=== PATIENT | female | born 1945 | race Caucasian/White ===

== ENCOUNTER 2022-05-08 22:39 | Inpatient (IN) ==
--- NOTE | 2022-05-08 23:25 | Emergency Department Note ---
History of Present Illness General Chief complaint: Hip Pain Stated complaint: AAO/FALL W/ LEFT HIP INJURY Time Seen by Provider: 05/08/22 23:13 History of Present Illness Maximum Pain Intensity: 6 77-year-old female presents emergency department with a nonsyncopal trip and fall while she was at a baseball game. Patient landed on her left hip complains of left hip pain was not ambulatory after the event. Patient did not hit her head denies any headache denies neck pain numbness or tingling denies chest pain shortness of breath abdominal pain. Patient states that she does take Brilinta. Patient states that there was a fall ball coming towards her and she tried to avoid it and stepped to the left side falling onto her left hip. Home Medications Medication Instructions Recorded Confirmed Type amlodipine 10 mg tablet 10 mg PO QAM 05/08/22 05/08/22 History aspirin 81 mg tablet,delayed 81 mg PO QAM 05/08/22 05/08/22 History release atorvastatin 20 mg tablet 20 mg PO HS 05/08/22 05/08/22 History carvedilol 6.25 mg tablet 6.25 mg PO BID 05/08/22 05/08/22 History cholecalciferol (vitamin D3) 25 25 mcg PO QAM 05/08/22 05/08/22 History mcg (1,000 unit) tablet (Vitamin D3) docusate sodium 100 mg capsule 100 mg PO BID PRN 05/08/22 05/08/22 History (Colace) insulin glargine U-300 conc 300 20 unit SUBCUT 05/08/22 05/08/22 History unit/mL (3 mL) subcutaneous pen (Toujeo Max U-300 SoloStar) insulin lispro 100 unit/mL 4 unit SUBCUT 05/08/22 05/08/22 History subcutaneous pen (Humalog KwikPen (U-100) Insulin) irbesartan 300 mg tablet 300 mg PO QAM 05/08/22 05/08/22 History isosorbide mononitrate 60 mg 60 mg PO QAM 05/08/22 05/08/22 History tablet,extended release 24 hr nitroglycerin 0.4 mg sublingual 0.4 mg SUBLINGUAL .Q 5 MINUTES PRN 05/08/22 05/08/22 History tablet oxybutynin chloride 5 mg tablet 5 mg PO BID 05/08/22 05/08/22 History sertraline 50 mg tablet 50 mg PO QAM 05/08/22 05/08/22 History ticagrelor 90 mg tablet (Brilinta) 90 mg PO BID 05/08/22 05/08/22 History Allergies Allergy/AdvReac Type Severity Reaction Status Date / Time pollen extracts Allergy Mild Sneezing Verified 05/08/22 23:22 Past Med/Surg History Social History Smoking Status: Never smoker Feels Safe at Home: Yes Immunizations: Past medical history includes diabetes, cardiac disease, hypertension, prior knee surgery Review of Systems A total of 10 systems reviewed and were otherwise negative Constitutional: no fever Cardiovascular: no chest pain Musculoskeletal: + joint pain, + deformity and + limited range of motion; no back pain Neurologic: no paresthesia Physical Exam Vital Signs Vital Signs - 24 hr 05/08/22 22:43 Temperature 36.6 C Temperature Source Oral Pulse Rate 68 Respiratory Rate 18 Respiratory Effort / Characteristics Non-Labored Respiratory Depth Normal Blood Pressure 146/81 H Blood Pressure Mean 102 Pulse Oximetry 97 Oxygen Delivery Method Room Air Sepsis Recent Fever Within 48 Hours No Sepsis New/Unexplained Change in Mental Status No Sepsis Action Taken by Nursing No Action Required VITAL SIGNS - Vital signs and nursing notes were reviewed. GENERAL - no acute distress. Communicates well with provider and answers questions appropriately. SKIN - Without rashes. HEAD - NC/AT. EYES - PERRL with EOMI bilaterally. Sclera anicteric. Palpebral conjunctiva pink and moist with no injection noted. EARS - No deformities of external structures noted on gross examination bilaterally. NOSE - Midline and without cyanosis. No epistaxis or purulent drainage noted. Septum midline without deviation or septal hematoma noted. MOUTH/OROPHARYNX - Without perioral cyanosis. NECK - Neck with FROM. Supple to palpation. LUNGS - Chest wall symmetric without accessory muscle use, intercostals retractions, or central cyanosis. Normal vesicular breath sounds CTA B/L. No wheezes, rales, or rhonchi appreciated. CARDIAC - RRR with S1/S2. No murmur, rubs, or gallops appreciated. ABDOMEN - Abdominal contour soft without pulsations or visible masses. No tenderness, palpable masses, hepatosplenomegaly, or ascites noted. EXTREMITIES - No clubbing or peripheral cyanosis. No pretibial edema present. Decreased range of motion left lower extremity the left lower extremity is shortened and rotated externally. Patient is neurovascularly intact distally the remainder of the extremities are normal without trauma. NEUROLOGIC - Cranial nerves II through XII grossly intact. GCS of 15 nonfocal PSYCH - A&Ox3 and cooperates fully with examiner. Pt is very pleasant and interacts well with examiner. Course Reevaluation(s) Reevaluation #1: Patient resting in no distress was started on IV fentanyl. The case was discussed with the [facility] hospitalist for admission Time: 00:26 Administered Medications Discontinued Medications Fentanyl Citrate (Fentanyl Citrate 100 Mcg/2 Ml Vial) 50 mcg IV NOW STA Stop: 05/08/22 23:36 Last Admin: 05/08/22 23:46 Dose: 50 mcg Documented by: [id number] Medical Decision Making Medical Records Attestation: I reviewed the patient's medical records. Home Medications Current Medication List: was personally reviewed by me Laboratory Data Attestation: I reviewed the patient's lab results. Result diagrams: 05/08/22 23:27 05/08/22 23:27 Lab Results 05/08/22 05/08/22 05/08/22 Range/Units 23:23 23:27 23:27 WBC 9.95 (4.8-10.8) K/ul RBC 3.86 L (3.93-5.22) M/uL Hgb 11.6 L (12.0-16.0) g/dl Hct 35.0 (34.1-44.9) % MCV 90.7 (80.0-100.0) fL MCH 30.1 (25.0-34.0) pg MCHC 33.1 (32.0-36.0) g/dL RDW Std Deviation 43.9 (36.4-46.3) fL RDW Coeff of [place] 13.2 (11.5-14.5) % Plt Count 186 (130-400) K/uL MPV 10.8 (9.4-12.3) fL Immature Gran % (Auto) 0.4 % Neut % (Auto) 67.5 % Lymph % (Auto) 21.0 % [place] % (Auto) 7.4 % Eos % (Auto) 3.1 % Baso % (Auto) 0.6 % Neut # (Auto) 6.71 H (1.4-6.5) K/uL Lymph # (Auto) 2.09 (1.2-3.4) K/uL [place] # (Auto) 0.74 (0.24-0.82) K/uL Eos # (Auto) 0.31 (0-0.50) K/uL Baso # (Auto) 0.06 (0-0.2) K/uL Immature Gran # (Auto) 0.04 H (0.00-0.02) K/uL PT 10.9 (9.0-12.0) Seconds INR 1.0 (0.9-1.1) APTT 24.5 (21.0-31.0) Seconds PTT Ratio 0.9 Sodium (136-145) mmol/L Potassium (3.5-5.1) mmol/L Chloride (98-107) mmol/L Carbon Dioxide (21-32) mmol/L Anion Gap (3-11) BUN (6-23) mg/dl Creatinine (0.6-1.2) mg/dl Est Cr Clr Drug Dosing ml/min Est GFR ( Amer) ml/min Est GFR (Non-Af Amer) ml/min BUN/Creatinine Ratio (10-20) Glucose (70-99(Fasting)) mg/dl Calcium (8.5-10.1) mg/dl Total Bilirubin (0.2-1.0) mg/dl AST (13-39) U/L ALT (7-52) U/L Alkaline Phosphatase (34-104) U/L Total Protein (6.0-8.3) gm/dl Albumin (3.4-5.0) gm/dl Globulin (2.5-4.0) gm/dl Albumin/Globulin Ratio (0.9-2) SARS-CoV-2, RNA, NAAT NEGATIVE (NEGATIVE) 05/08/22 Range/Units 23:27 WBC (4.8-10.8) K/ul RBC (3.93-5.22) M/uL Hgb (12.0-16.0) g/dl Hct (34.1-44.9) % MCV (80.0-100.0) fL MCH (25.0-34.0) pg MCHC (32.0-36.0) g/dL RDW Std Deviation (36.4-46.3) fL RDW Coeff of [place] (11.5-14.5) % Plt Count (130-400) K/uL MPV (9.4-12.3) fL Immature Gran % (Auto) % Neut % (Auto) % Lymph % (Auto) % [place] % (Auto) % Eos % (Auto) % Baso % (Auto) % Neut # (Auto) (1.4-6.5) K/uL Lymph # (Auto) (1.2-3.4) K/uL [place] # (Auto) (0.24-0.82) K/uL Eos # (Auto) (0-0.50) K/uL Baso # (Auto) (0-0.2) K/uL Immature Gran # (Auto) (0.00-0.02) K/uL PT (9.0-12.0) Seconds INR (0.9-1.1) APTT (21.0-31.0) Seconds PTT Ratio Sodium 136 (136-145) mmol/L Potassium 4.1 (3.5-5.1) mmol/L Chloride 106 (98-107) mmol/L Carbon Dioxide 23 (21-32) mmol/L Anion Gap 7 (3-11) BUN 28 H (6-23) mg/dl Creatinine 1.24 H (0.6-1.2) mg/dl Est Cr Clr Drug Dosing 37.2 ml/min Est GFR ( Amer) 48.5 ml/min Est GFR (Non-Af Amer) 41.9 ml/min BUN/Creatinine Ratio 22.6 H (10-20) Glucose 157 H (70-99(Fasting)) mg/dl Calcium 9.2 (8.5-10.1) mg/dl Total Bilirubin 0.4 (0.2-1.0) mg/dl AST 24 (13-39) U/L ALT 14 (7-52) U/L Alkaline Phosphatase 102 (34-104) U/L Total Protein 6.8 (6.0-8.3) gm/dl Albumin 3.8 (3.4-5.0) gm/dl Globulin 3.0 (2.5-4.0) gm/dl Albumin/Globulin Ratio 1.3 (0.9-2) SARS-CoV-2, RNA, NAAT (NEGATIVE) Imaging Data Attestation: I personally reviewed and interpreted this imaging study as follows: MDM Narrative Medical decision making differential diagnosis includes sprain strain contusion fracture, dislocation. Plan is to check labs, check left hip x-rays, admit Impression & Plan Intertrochanteric fracture of left femur Discharge Plan Visit Data Chief Complaint: Hip Pain Stated Complaint: AAO/FALL W/ LEFT HIP INJURY ED Provider: John Wells Discharge Problem: Intertrochanteric fracture of left femur Patient Disposition: Being Evaluated by Hospitalist Forms Stand Alone Forms: My [facility] Prescriptions Prescriptions: No Action isosorbide mononitrate 60 mg tablet extended release 24 hr 60 mg PO QAM RF: 0 oxybutynin chloride 5 mg tablet 5 mg PO BID RF: 0 Toujeo Max U-300 SoloStar 300 unit/mL (3 mL) insulin pen 20 unit SUBCUT HS RF: 0 insulin lispro [Humalog KwikPen Insulin] 100 unit/mL insulin pen 4 unit SUBCUT WM RF: 0 carvedilol 6.25 mg tablet 6.25 mg PO BID RF: 0 amlodipine 10 mg tablet 10 mg PO QAM RF: 0 irbesartan 300 mg tablet 300 mg PO QAM RF: 0 nitroglycerin 0.4 mg tablet, sublingual 0.4 mg sublingual .Q 5 MINUTES PRN (Reason: Chest Pain) RF: 0 sertraline 50 mg tablet 50 mg PO QAM RF: 0 Brilinta 90 mg tablet 90 mg PO BID RF: 0 atorvastatin 20 mg Tablet 20 mg PO HS RF: 0 aspirin [Aspirin Low-Strength] 81 mg Tablet,Delayed Release (Dr/Ec) 81 mg PO QAM RF: 0 docusate sodium [Colace] 100 mg Capsule 100 mg PO BID PRN (Reason: Constipation) RF: 0 cholecalciferol (vitamin D3) [Vitamin D3] 25 mcg (1,000 unit) Tablet 25 mcg PO QAM RF: 0 Referrals Referrals: PCP,NO [Primary Care Provider] -
[2022-05-08] MEDS ORDERED: fentaNYL citrate 100 MCG/2 ML VIAL IV STA (23:35)
[2022-05-08 23:41] LABS: Basophils # (auto) 0.06 K/uL (0-0.2); Basophils % (auto) 0.6 %; Eosinophils # (auto) 0.31 K/uL (0-0.50); Eosinophils % (auto) 3.1 %; Hemoglobin 11.6 g/dl (12.0-16.0); Immature Granulocytes # (auto) 0.04 K/uL (0.00-0.02); Immature Granulocytes % (auto) 0.4 %; Lymphocytes # (auto) 2.09 K/uL (1.2-3.4); Mean Corpuscular Hemoglobin 30.1 pg (25.0-34.0); Mean Corpuscular Hgb Conc 33.1 g/dL (32.0-36.0); Mean Corpuscular Volume 90.7 fL (80.0-100.0); Mean Platelet Volume 10.8 fL (9.4-12.3); Monocytes # (auto) 0.74 K/uL (0.24-0.82); Monocytes % (auto) 7.4 %; Neutrophils # (auto) 6.71 K/uL (1.4-6.5); Neutrophils % (auto) 67.5 %; Platelet Count 186 K/uL (130-400); RDW Coefficient of Variation 13.2 % (11.5-14.5); RDW Standard Deviation 43.9 fL (36.4-46.3); Red Blood Count 3.86 M/uL (3.93-5.22); White Blood Count 9.95 K/ul (4.8-10.8)
[2022-05-08 23:59] LABS: Partial Thromboplastin Ratio 0.9; Partial Thromboplastin Time 24.5 Seconds (21.0-31.0); Prothrombin Time 10.9 Seconds (9.0-12.0)
[2022-05-09 00:05] LABS: Albumin Globulin Ratio 1.3 (0.9-2); Albumin Level 3.8 gm/dl (3.4-5.0); BUN Creatinine Ratio 22.6 (10-20); Bilirubin,Total 0.4 mg/dl (0.2-1.0); Calcium 9.2 mg/dl (8.5-10.1); Creatinine Clr Calc Pharmacy 37.2 ml/min; Est GFR (African American) 48.5 ml/min; Est GFR (Non-African American) 41.9 ml/min; Potassium 4.1 mmol/L (3.5-5.1); Total Protein 6.8 gm/dl (6.0-8.3)
[2022-05-09] MEDS ORDERED: SODIUM CHLORIDE 0.9% 1000ML 1,000 ML IV ONE (00:27)
[2022-05-09 00:34] LABS: Appearance Urine Clear (Clear); Bilirubin Urine Negative (Negative); Blood Urine Negative (Negative); Color Urine Yellow; Glucose Urine UA Negative (Negative); Ketones Urine Negative (Negative); Leukocyte Esterase Urine Negative (Negative); Nitrite Urine Negative (Negative); Protein Urine Negative (Negative); Specific Gravity Urine 1.015 (1.000-1.030); Urobilinogen Urine Negative (Negative); pH Urine 7.5 (4.5-7.5)
[2022-05-09] MEDS ORDERED: PROMETHAZINE HCL 12.5 MG in SODIUM CHLORIDE 0.9% 50 ML IV PRN (02:18)
[2022-05-09] MEDS: ACETAMINOPHEN 325 MG TAB PO PRN (02:42)
--- NOTE | 2022-05-09 02:42 | History & Physical Report ---
Date of Service May 09, 2022 Assessment & Plan (1) Hypotension: Plan: Traumatic left hip fracture secondary to mechanical fall hx CAD status post CABG (1998) status post stent (2009)/ PVD status post surgery hyperlipidemia on statin Rx, hx TIA (2019) currently on aspirin and Brilinta DM2 insulin requiring, reasonable control as of recent hemoglobin A1c of 7.06 January 2022 ARF unknown duration Anemia, new diagnosis as per patient account, patient admits to hemorrhoidal bleed symptoms from time to time Systolic murmur on exam Past tobacco abuse Medical telemetry given borderline BP IVF Hold other BP meds except for Coreg for now Orthopedics consult Re: Left hip fracture Recommend Cardiology consultation for preop eval given RCRI score of at least 3 points (Class IV risk) if surgery recommended and patient agreeable to attendant risks of procedure TTE RE systolic murmur Anemia work-up, transfuse PRBC if hemoglobin less than 8 and or for symptomatic anemia continue aspirin for secondary CAD/stroke prevention; hold Brilinta for now in anticipation of procedure, Basal insulin adjusted for n.p.o. status, ISS BG goal 1 10-1 40, update hemoglobin A1c DVT prophylaxis. SCDs Re: Possible surgery Full code Patient daughter requesting update providers. Ms. Ihsan Vasquez, contact #[phone]. Text document was generated using [employer] voice recognition software. It may contain grammatical or spelling errors. Kindly contact undersigned for clarification of any documentation item in question. History of Present Illness Chief Complaint: Fall, left hip pain Primary Care Provider: Dr. Don Alaniz of [place], [place] History obtained from patient, family, and records. Medical history significant for CAD status post CABG (1998) status post stent (2009), PVD status post surgery, hypertension, hyperlipidemia, history TIA currently on aspirin and Brilinta, DM2 insulin requiring, past tobacco abuse. Patient fell down yesterday trying to avoid a baseball coming her way at a community again. Patient subsequently landed on her left hip. Excruciating left hip pain. Unable to get up. No head trauma, no syncope, no chest pain, no unusual SOB. Patient brought to the ER for evaluation. SBP 90s at some point during ER stay. Medical History as above Exertional shortness of breath symptoms for about 6 months which prompted outpatient nuclear stress test by her [employer] [employer] student life vice president (Dr. Falcon) April 2022. Medical management recommended as per patient. [employer] attributed shortness of breath to Brilinta and recommended replacing Brilinta with NOAC as per patient account. Patient hesitant to follow recommendation until she was able to check with her neurologist who had her on dual antiplatelet Rx following TIA 2019. Surgical History : CABG, knee surgeries, hysterectomy, cholecystectomy, vascular procedure Family History : Heart disease Personal/Social history : Past tobacco abuse, no EtOH intake, retired [email or web address] employee Allergies Allergy/AdvReac Type Severity Reaction Status Date / Time pollen extracts Allergy Mild Sneezing Verified 05/08/22 23:22 Home Medications Medication Instructions Recorded Confirmed Type amlodipine 10 mg tablet 10 mg PO QAM 05/08/22 05/08/22 History aspirin 81 mg tablet,delayed 81 mg PO QAM 05/08/22 05/08/22 History release atorvastatin 20 mg tablet 20 mg PO HS 05/08/22 05/08/22 History carvedilol 6.25 mg tablet 6.25 mg PO BID 05/08/22 05/08/22 History cholecalciferol (vitamin D3) 25 25 mcg PO QAM 05/08/22 05/08/22 History mcg (1,000 unit) tablet (Vitamin D3) docusate sodium 100 mg capsule 100 mg PO BID PRN 05/08/22 05/08/22 History (Colace) insulin glargine U-300 conc 300 20 unit SUBCUT 05/08/22 05/08/22 History unit/mL (3 mL) subcutaneous pen (Toujeo Max U-300 SoloStar) insulin lispro 100 unit/mL 4 unit SUBCUT 05/08/22 05/08/22 History subcutaneous pen (Humalog KwikPen (U-100) Insulin) irbesartan 300 mg tablet 300 mg PO QAM 05/08/22 05/08/22 History isosorbide mononitrate 60 mg 60 mg PO QAM 05/08/22 05/08/22 History tablet,extended release 24 hr nitroglycerin 0.4 mg sublingual 0.4 mg SUBLINGUAL .Q 5 MINUTES PRN 05/08/22 05/08/22 History tablet oxybutynin chloride 5 mg tablet 5 mg PO BID 05/08/22 05/08/22 History sertraline 50 mg tablet 50 mg PO QAM 05/08/22 05/08/22 History ticagrelor 90 mg tablet (Brilinta) 90 mg PO BID 05/08/22 05/08/22 History Past Med/Surg History Social History Smoking Status: Former smoker Hx Alcohol Use: Yes Alcohol type: wine Hx Substance Use: No Communication Ability: Effective Beliefs That Will Affect Care: None Current Living Situation: Spouse Feels Safe at Home: Yes Safety Concerns: Feels Safe At This Time Assistive Devices: Glasses Review of Systems Review of Systems: As per HPI, all other systems reviewed and negative Physical Exam Physical Exam: GENERAL: Comfortable, pleasant, obese, no respiratory distress SKIN: Pallor, warm HEENT: Pale palpebral conjunctivae, no ptosis, dry buccal mucosa NECK : Supple, short neck, no tenderness CHEST : CTA, no tenderness HEART : RRR, systolic murmur best heard over left sternal border ABDOMEN: Some distention, nontender EXTREMITIES : Minimal LE swelling, rotated left hip with tenderness NEUROLOGIC : Coherent, no facial asymmetry, no other gross focality Results & Data Results & Data ([facility]) Vital Signs (Past 12 Hours) Vital Signs Temp Pulse Resp BP Pulse Ox 05/09/22 02:00 60 17 97/55 L 95 05/09/22 01:00 69 21 139/64 93 05/09/22 00:28 63 17 118/53 L 97 05/08/22 22:43 36.6 C 68 18 146/81 H 97 Laboratory Results Laboratory Results WBC 9.95 K/ul (4.8-10.8) 05/08/22 23:27 RBC 3.86 M/uL (3.93-5.22) L 05/08/22 23:27 Hgb 11.6 g/dl (12.0-16.0) L 05/08/22 23:27 Hct 35.0 % (34.1-44.9) 05/08/22 23:27 MCV 90.7 fL (80.0-100.0) 05/08/22 23:27 MCH 30.1 pg (25.0-34.0) 05/08/22 23:27 MCHC 33.1 g/dL (32.0-36.0) 05/08/22 23:27 RDW Std Deviation 43.9 fL (36.4-46.3) 05/08/22 23: RDW Coeff of [place] 13.2 % (11.5-14.5) 05/08/22: Plt Count 186 K/uL (130-400) 05/08/22: MPV 10.8 fL (9.4-12.3) 05/08/22 23: Immature Gran % (Auto) 0.4 % 05/08/22: Neut % (Auto) 67.5 % 05/08/22: Lymph % (Auto) 21.0 % 05/08/22 23: [place] % (Auto) 7.4 % 05/08/22: Eos % (Auto) 3.1 % 05/08/22: Baso % (Auto) 0.6 % 05/08/22: Neut # (Auto) 6.71 K/uL (1.4-6.5) H 05/08/22 23: Lymph # (Auto) 2.09 K/uL (1.2-3.4) 05/08/22 23: [place] # (Auto) 0.74 K/uL (0.24-0.82) 05/08/22 23: Eos # (Auto) 0.31 K/uL (0-0.50) 05/08/22 23: Baso # (Auto) 0.06 K/uL (0-0.2) 05/08/22 23: Immature Gran # (Auto) 0.04 K/uL (0.00-0.02) H 05/08/22 23: PT 10.9 Seconds (9.0-12.0) 05/08/22 23: INR 1.0 (0.9-1.1) 05/08/22: APTT 24.5 Seconds (21.0-31.0) 05/08/22: PTT Ratio 0.9 05/08/22 23: Sodium 136 mmol/L (136-145) 05/08/22 23: Potassium 4.1 mmol/L (3.5-5.1) 05/08/22: Chloride 106 mmol/L (98-107) 05/08/22 23: Carbon Dioxide 23 mmol/L (21-32) 05/08/22 23:27 Anion Gap 7 (3-11) 05/08/22 23:27 BUN 28 mg/dl (6-23) H 05/08/22 23:27 Creatinine 1.24 mg/dl (0.6-1.2) H 05/08/22 23:27 Est Cr Clr Drug Dosing 37.2 ml/min 05/08/22 23:27 Est GFR ( Amer) 48.5 ml/min 05/08/22 23:27 Est GFR (Non-Af Amer) 41.9 ml/min 05/08/22 23:27 BUN/Creatinine Ratio 22.6 (10-20) H 05/08/22 23:27 Glucose 157 mg/dl (70-99(Fasting)) H 05/08/22 23: Calcium 9.2 mg/dl (8.5-10.1) 05/08/22 23: Total Bilirubin 0.4 mg/dl (0.2-1.0) 05/08/22 23:27 AST 24 U/L (13-39) 05/08/22 23:27 ALT 14 U/L (7-52) 05/08/22 23:27 Alkaline Phosphatase 102 U/L (34-104) 05/08/22 23:27 Total Protein 6.8 gm/dl (6.0-8.3) 05/08/22 23:27 Albumin 3.8 gm/dl (3.4-5.0) 05/08/22 23:27 Globulin 3.0 gm/dl (2.5-4.0) 05/08/22 23:27 Albumin/Globulin Ratio 1.3 (0.9-2) 05/08/22 23:27 Urine Color Yellow 05/09/22 00:23 Urine Appearance Clear (Clear) 05/09/22 00:23 Urine pH 7.5 (4.5-7.5) 05/09/22 00:23 Ur Specific [place] 1.015 (1.000-1.030) 05/09/22 00:23 Urine Protein Negative (Negative) 05/09/22 00:23 Urine Glucose (UA) Negative (Negative) 05/09/22 00:23 Urine Ketones Negative (Negative) 05/09/22 00:23 Urine Blood Negative (Negative) 05/09/22 00:23 Urine Nitrite Negative (Negative) 05/09/22 00:23 Urine Bilirubin Negative (Negative) 05/09/22 00:23 Urine Urobilinogen Negative (Negative) 05/09/22 00:23 Ur Leukocyte Esterase Negative (Negative) 05/09/22 00:23 SARS-CoV-2, RNA, NAAT NEGATIVE (NEGATIVE) 05/08/22 23:23 Diagnostic Findings Chest x-ray as per my interpretation no congestion Left hip x-ray as per my interpretation showed comminuted femoral neck fracture EKG as per my interpretation : Rate 65, NSR, normal axis, septal infarct, diffuse T wave abnormalities
[2022-05-09] MEDS: oxyCODONE HCL IR 5 MG TAB (IMMEDIATE RELEASE) PO PRN ×3 (02:43→16:40)
[2022-05-09 03:36] LABS: Basophils # (auto) 0.07 K/uL (0-0.2); Basophils % (auto) 0.6 %; Eosinophils # (auto) 0.17 K/uL (0-0.50); Eosinophils % (auto) 1.4 %; Hematocrit (blood only) 33.3 % (34.1-44.9); Hemoglobin 11.1 g/dl (12.0-16.0); Immature Granulocytes # (auto) 0.04 K/uL (0.00-0.02); Immature Granulocytes % (auto) 0.3 %; Lymphocytes # (auto) 1.84 K/uL (1.2-3.4); Lymphocytes % (auto) 14.9 %; Mean Corpuscular Hemoglobin 30.2 pg (25.0-34.0); Mean Corpuscular Hgb Conc 33.3 g/dL (32.0-36.0); Mean Corpuscular Volume 90.5 fL (80.0-100.0); Mean Platelet Volume 10.2 fL (9.4-12.3); Monocytes # (auto) 0.67 K/uL (0.24-0.82); Monocytes % (auto) 5.4 %; Neutrophils # (auto) 9.57 K/uL (1.4-6.5); Neutrophils % (auto) 77.4 %; Platelet Count 172 K/uL (130-400); RDW Standard Deviation 43.2 fL (36.4-46.3); Red Blood Count 3.68 M/uL (3.93-5.22); Reticulocyte % 1.7 % (0.5-2.0); Reticulocytes # 0.06 10^6/uL (0.02-0.10); White Blood Count 12.36 K/ul (4.8-10.8)
[2022-05-09] MEDS: LANTUS PER UNIT CHARGE SQ SCH ×2 (03:36→21:03)
[2022-05-09] MEDS ORDERED: DOCUSATE SODIUM 100 MG CAP PO PRN (03:50)
[2022-05-09] MEDS ORDERED: CARBOHYDRATES FOR HYPOGLYCEMIA PO PRN (03:50)
[2022-05-09] MEDS ORDERED: NALOXONE HCL 0.4 MG/1 ML VIAL/CARP IV PRN (03:50)
[2022-05-09] MEDS ORDERED: bisacodyL 10 MG SUPP PR PRN (03:50)
[2022-05-09] MEDS ORDERED: GLUCAGON FOR INJ 1 MG VIAL SQ PRN (03:50)
[2022-05-09] MEDS ORDERED: GLUCOSE 40% GEL 15 GM TUBE PO PRN (03:50)
[2022-05-09] MEDS ORDERED: GLUCOSE 10 TAB/TUBE PO PRN (03:50)
[2022-05-09] MEDS ORDERED: DEXTROSE 50% 50 ML SYRINGE IV PRN (03:50)
[2022-05-09 04:03] LABS: BUN Creatinine Ratio 27.8 (10-20); Calcium 8.8 mg/dl (8.5-10.1); Creatinine Clr Calc Pharmacy 42.7 ml/min; Est GFR (African American) 57.3 ml/min; Est GFR (Non-African American) 49.5 ml/min; Potassium 4.2 mmol/L (3.5-5.1)
[2022-05-09 04:12] LABS: Thyroid Stimulating Hormone 6.076 uIu/ml (0.300-4.500)
[2022-05-09] MEDS: INSULIN ASPART PER UNIT SC SCH ×4 (04:43→21:05)
[2022-05-09] MEDS: HYDROmorphone INJ 0.5 MG/0.5 ML SYR IV PRN ×3 (04:44→20:40)
[2022-05-09 04:47] LABS: T4 Free Thyroxine 0.92 ng/dl (0.61-1.60)
[2022-05-09] MEDS ORDERED: MAGNESIUM SULFATE / D5W 1 GM/100 ML BAG IV ONE (05:35)
[2022-05-09 05:55] LABS: Estimated Average Glucose 163 mg/dl; Hemoglobin A1C 7.3 % (4.5-5.6)
[2022-05-09] MEDS: SERTRALINE HCL 50 MG TABLET PO SCH (08:02)
[2022-05-09] MEDS: ASPIRIN 81 MG ECTAB PO SCH (08:02)
[2022-05-09] MEDS: OXYBUTYNIN CHLORIDE 5 MG TAB PO SCH ×2 (08:02→21:04)
--- NOTE | 2022-05-09 08:12 | XRay Report ---
XR chest 1V portable CLINICAL HISTORY: hip pain. Evaluate cardiopulmonary status COMPARISON STUDY: No previous studies for comparison. TECHNIQUE: 1 view of the chest FINDINGS: Single frontal view of the chest demonstrates the cardiomediastinal silhouette to be within normal li mits. The patient is status post previous cardiothoracic surgery. The lungs are clear of alveolar opa cities. There is no evidence for pleural effusion. There is no evidence for vascular congestion. Ther e is no acute osseous pathology. IMPRESSION: 1. No acute cardiopulmonary disease. 2. The patient is status post previous cardiothoracic surgery. ACT 112: Negative or not required by law. Electronically signed by: Antonio Parks M.D. 05/09/2022 8:11 AM
--- NOTE | 2022-05-09 08:12 | XRay Report ---
XR hip LT min 2V CLINICAL HISTORY: pain. Status post fall COMPARISON STUDY: No previous studies for comparison. TECHNIQUE: 2 left hip views FINDINGS: This is a limited examination due to patient body habitus. Bones: There is evidence for a comminuted, intratrochanteric fracture of the left femoral neck. Mild coxa varus deformity is present. The remaining imaged bones are intact. There is no lytic or blastic lesion. Joints: The femoral head maintains its anatomic position within the acetabulum. There is evidence for at least moderate joint space narrowing. Soft tissues: There is no focal soft tissue abnormality. There is no radiopaque foreign body. IMPRESSION: 1. Intertrochanteric fracture of the left femoral neck. ACT 112: Negative or not required by law. Electronically signed by: Antonio Parks M.D. 05/09/2022 8:10 AM
[2022-05-09] MEDS ORDERED: carvediloL 3.125 MG TAB PO SCH (09:00)
[2022-05-09] MEDS: carvediloL 6.25 MG TAB PO SCH ×2 (11:13→21:04)
--- NOTE | 2022-05-09 11:16 | Orthopedic Consultation ---
Date of Consultation May 09, 2022 Assessment & Plan (1) Intertrochanteric fracture of left femur: Patient will be seen by Dr. Coleman today and plan for surgery tomorrow if cleared by medicine/Cardiology. SCDs, Teds, History of Present Illness Reason for Consultation: left hip fracture Attending Physician: King Contreras MD History of Present Illness 77 yo white female presented to the ER last evening after a fall while at a baseball game and trying to get out of the way. She notes that she fell while trying to move sideways on the rocks. She has a history of CABG, stent, DM, TIA and B/L TKA. Pain is controlled at the moment. Allergies Allergy/AdvReac Type Severity Reaction Status Date / Time pollen extracts Allergy Mild Sneezing Verified 05/08/22 23:22 Home Medications Medication Instructions Recorded Confirmed Type amlodipine 10 mg tablet 10 mg PO QAM 05/08/22 05/08/22 History aspirin 81 mg tablet,delayed 81 mg PO QA 05/08/22 05/08/22 History release atorvastatin 20 mg tablet 20 mg PO 05/08/22 05/08/22 History carvedilol 6.25 mg tablet 6.25 mg PO BID 05/08/22 05/08/22 History cholecalciferol (vitamin D3) 25 25 mcg PO QAM 05/08/22 05/08/22 History mcg (1,000 unit) tablet (Vitamin D3) docusate sodium 100 mg capsule 100 mg PO BID PRN 05/08/22 05/08/22 History (Colace) insulin glargine U-300 conc 300 20 unit SUBCUT 05/08/22 05/08/22 History unit/mL (3 mL) subcutaneous pen (Toujeo Max U-300 SoloStar) insulin lispro 100 unit/mL 4 unit SUBCUT 05/08/22 05/08/22 History subcutaneous pen (Humalog KwikPen (U-100) Insulin) irbesartan 300 mg tablet 300 mg PO QAM 05/08/22 05/08/22 History isosorbide mononitrate 60 mg 60 mg PO QAM 05/08/22 05/08/22 History tablet,extended release 24 hr nitroglycerin 0.4 mg sublingual 0.4 mg SUBLINGUAL .Q 5 MINUTES PRN 05/08/22 05/08/22 History tablet oxybutynin chloride 5 mg tablet 5 mg PO BID 05/08/22 05/08/22 History sertraline 50 mg tablet 50 mg PO QAM 05/08/22 05/08/22 History ticagrelor 90 mg tablet (Brilinta) 90 mg PO BID 05/08/22 05/08/22 History Patient History Social History Smoking Status: Former smoker Hx Alcohol Use: Yes Alcohol type: wine Hx Substance Use: No Communication Ability: Effective Beliefs That Will Affect Care: None Current Living Situation: Spouse Feels Safe at Home: Yes Safety Concerns: Feels Safe At This Time Assistive Devices: Glasses Review of Systems Respiratory: SOB over the last few months Cardiovascular: Additional Comments: No CP Physical Exam Physical Exam: Left hip swelling and ecchymosis. Pain to palpation. Calves are soft and nontender. Surgical scar to left knee. Pain with slight motion to left hip. NVI Results & Data ([facility]) Vital Signs (Past 12 Hours) Vital Signs Temp Pulse Pulse Resp BP BP Pulse Ox 05/09/22 07:49 37.1 C 109 H 20 118/65 100 05/09/22 06:14 65 05/09/22 04:52 75 05/09/22 04:19 36.9 C 75 16 157/76 H 95 05/09/22 03:50 36.9 C 75 16 157/76 H 95 05/09/22 03:00 61 14 103/52 L 95 05/09/22 02:00 60 17 97/55 L 95 05/09/22 01:00 69 21 139/64 93 05/09/22 00:28 63 17 118/53 L 97 Pulse Ox 05/09/22 07:49 05/09/22 06:14 05/09/22 04:52 05/09/22 04:19 05/09/22 03:50 95 05/09/22 03:00 05/09/22 02:00 05/09/22 01:00 05/09/22 00:28 (1) Intertrochanteric fracture of left femur Encounter type: initial encounter Fracture alignment: nondisplaced Fracture type: closed Qualified Code(s): S72.145A - Nondisplaced intertrochanteric fracture of left femur, initial encounter for closed fracture
--- NOTE | 2022-05-09 12:24 | Electrocardiogram Report ---
Test Reason : Blood Pressure : / mmHG Vent. Rate : 063 BPM Atrial Rate : 063 BPM P-R Int : 150 ms QRS Dur : 082 ms QT Int : 408 ms P-R-T Axes : 051 046 105 degrees QTc Int : 417 ms Sinus rhythm with marked sinus arrhythmia Possible Left atrial enlargement Abnormal ECG No previous ECGs available Confirmed by Gary Lucas ([id number]) on 05/09/2022 12:24:39 PM Referred By: REFERRED SELF Confirmed By:Kamran Lucas
[2022-05-09] MEDS ORDERED: Nursing to Pharmacy Communication SCH (15:15)
--- NOTE | 2022-05-09 15:45 | Hospitalist Progress Note ---
Date of Service May 09, 2022 Assessment & Plan (1) Intertrochanteric fracture of left femur: Plan: 77 year old female who presented to the ED 05/08 after mechanical fall sustaining left hip fracture. She was at a baseball game and fell down on left side while trying to get out of the way. Left femur intertrochanteric fracture- seen by ortho- plan for OR tomorrow. NPO after midnight. Sc heparin until after midnight. Bed rest until surgery. Cardio consulted for preop clearance per patient request. DM-2- A1c 7.8. Continue lantus, SSI H/o IA 2019- on ASA, statin. Brilinta on hold h/o CAD s/p CABG 1998 and stenting 2009- No Chest pain. Had RUVALCABA and had stress test with her OP cardio 3 weeks back. Leucocytosis- likely reactive. recheck in am Hypomagnesemia- repleted, recheck in am Low B12 level- will start on po supplementation. DVT ppx- sc heparin, hold after midnight for surgery tomorrow Dispo- OR tomorrow. Will need PT eval and rehab afterwards. Unable to reach her daughter Ihsan over the phone to provide an update Admission and Anticipated Discharge Date Admission Date: May 09, 2022 Subjective No pain at rest, has pain with movement. States ongoing dyspnea with exertion for past few months (she thinks this is side effect from her Brilinta) and had stress test done by her cardiology 3 weeks back- stated nothing fixable identified and recommended switching her brilinta to xarelto however she was hesitant and did not want to do unless she discussed with her OP neurologist (Brilinta was started after her stroke 2019 by neuro as per the patient). She wanted to see cardiology to clear for surgery. Denies any chest pain, lightheadedness, dizziness. She is physically active. Physical Exam Physical Exam: General: Lying comfortably in bed, not in distress, on room air HEENT: EOMI, MEGHA, MMM Chest: Clear breath sounds bilaterally, no wheezes or crackles CVS: Regular rate and rhythm, normal heart sounds, no murmur Abdomen: Soft, non tender, not distended, normal bowel sounds Neuro: Awake, alert, oriented, conversing well, non focal Extremities: No cyanosis, clubbing or edema. No ecchymoses noted. Results & Data Results & Data ([facility]) Vital Signs (Past 12 Hours) Vital Signs Temp Pulse Pulse Resp BP Pulse Ox Pulse Ox 05/09/22 15:11 36.9 C 75 18 137/77 91 05/09/22 14:35 64 05/09/22 12:06 36.6 C 58 L 18 133/68 93 05/09/22 07:49 37.1 C 109 H 20 118/65 100 05/09/22 06:14 65 05/09/22 04:52 75 05/09/22 04:19 36.9 C 75 16 157/76 H 95 05/09/22 03:50 36.9 C 75 16 157/76 H 95 95 Laboratory Results Short CBC 05/08/22 05/09/22 Range/Units 23:27 03:20 WBC 9.95 12.36 H (4.8-10.8) K/ul Hgb 11.6 L 11.1 L (12.0-16.0) g/dl Hct 35.0 33.3 L (34.1-44.9) % Plt Count 186 172 (130-400) K/uL BMP 05/08/22 05/09/22 23:27 03:20 Sodium 136 135 L Potassium 4.1 4.2 Chloride 106 106 Carbon Dioxide 23 23 BUN 28 H 30 H Creatinine 1.24 H 1.08 Glucose 157 H 212 H Calcium 9.2 8.8 Liver Function 05/08/22 Range/Units 23:27 Total Bilirubin 0.4 (0.2-1.0) mg/dl AST 24 (13-39) U/L ALT 14 (7-52) U/L Alkaline Phosphatase 102 (34-104) U/L Albumin 3.8 (3.4-5.0) gm/dl Urine 05/09/22 Range/Units 00:23 Urine Color Yellow Urine Appearance Clear (Clear) Urine pH 7.5 (4.5-7.5) Ur Specific [place] 1.015 (1.000-1.030) Urine Protein Negative (Negative) Urine Glucose (UA) Negative (Negative) Medications Administered Current Inpatient Medications Acetaminophen (Acetaminophen 325 Mg Tab) 650 mg PO Q6H PRN PRN Reason: Fever/pain Stop: 06/08/22 02:17 Last Admin: 05/09/22 02:42 Dose: 650 mg Documented by: Aspirin (Aspirin 81 Mg Ectab) 81 mg PO QAM [facility] Stop: 06/08/22 08:59 Last Admin: 05/09/22 08:02 Dose: 81 mg Documented by: Atorvastatin Calcium (Atorvastatin 20 Mg Tab) 20 mg PO HS [facility] Stop: 06/08/22 20:59 Bisacodyl (Bisacodyl 10 Mg Supp) 10 mg MS DAILY PRN PRN Reason: Constipation Stop: 06/08/22 03:49 Carvedilol (Carvedilol 6.25 Mg Tab) 6.25 mg PO BID [facility] Stop: 06/08/22 08:59 Last Admin: 05/09/22 11:13 Dose: 6.25 mg Documented by: Dextrose (Dextrose 50% 50 Ml Syringe) 25 - 50 ml IV UD PRN; Protocol PRN Reason: Hypoglycemia Protocol Stop: 06/08/22 03:49 Docusate Sodium (Docusate Sodium 100 Mg Cap) 100 mg PO BID PRN PRN Reason: Constipation Stop: 06/08/22 03:49 Glucagon (Glucagon For Inj 1 Mg Vial) 1 mg SQ UD PRN; Protocol PRN Reason: Hypoglycemia Protocol Stop: 06/08/22 03:49 Glucose (Glucose 10 Tabs/Tube) 4 - 8 tab PO UD PRN; Protocol PRN Reason: Hypoglycemia Protocol Stop: 06/08/22 03:49 Glucose (Glucose 40% Gel 15 Gm Tube) 15 - 30 gm PO UD PRN; Protocol PRN Reason: Hypoglycemia Protocol Stop: 06/08/22 03:49 Hydromorphone HCl (Hydromorphone Inj 0.5 Mg/0.5 Ml Syr) 0.25 mg IV Q3H PRN PRN Reason: Pain Stop: 05/23/22 02:17 Last Admin: 05/09/22 14:59 Dose: 0.25 mg Documented by: Sodium Chloride (Nss 1000ml) 1,000 mls @ 60 mls/hr IV .[id number] ONE Stop: 05/09/22 17:06 Last Admin: 05/09/22 01:42 Dose: 60 mls/hr Documented by: Promethazine HCl 12.5 mg/ (Sodium Chloride) 50.5 mls @ 202 mls/hr IV Q6H PRN PRN Reason: Nausea And Vomiting Stop: 06/08/22 02:17 Insulin Aspart (Insulin Aspart Per Unit) 0 units SC ACHS [facility] Stop: 06/08/22 04:14 Insulin Glargine (Lantus Per Unit Charge) 5 units SQ HS [facility] Stop: 06/08/22 02:54 Last Admin: 05/09/22 03:36 Dose: 5 units Documented by: Miscellaneous (Carbohydrates For Hypoglycemia ) 15 - 30 gm PO UD PRN PRN Reason: Hypoglycemia Protocol Stop: 06/08/22 03:49 Naloxone HCl (Naloxone Hcl 0.4 Mg/1 Ml Vial/Carp) 0.1 mg IV UD PRN PRN Reason: Opiate Overdose Stop: 06/08/22 03:49 Oxybutynin Chloride (Oxybutynin Chloride 5 Mg Tab) 5 mg PO BID [facility] Stop: 06/08/22 08:59 Last Admin: 05/09/22 08:02 Dose: 5 mg Documented by: Oxycodone HCl (Oxycodone Hcl Ir 5 Mg Tab (Immediate Release)) 5 mg PO Q4H PRN PRN Reason: Pain Stop: 05/23/22 02:17 Last Admin: 05/09/22 11:16 Dose: 5 mg Documented by: Sertraline HCl (Sertraline Hcl 50 Mg Tablet) 50 mg PO QAM [facility] Stop: 06/08/22 08:59 Last Admin: 05/09/22 08:02 Dose: 50 mg Documented by: (1) Intertrochanteric fracture of left femur Encounter type: initial encounter Fracture alignment: nondisplaced Fracture type: closed Qualified Code(s): S72.145A - Nondisplaced intertrochanteric fracture of left femur, initial encounter for closed fracture
[2022-05-09] MEDS ORDERED: CYCLOBENZAPRINE HCL 5 MG TAB PO ONE (16:15)
[2022-05-09] MEDS: CYANOCOBALAMIN (B-12) 500 MCG TABLET PO SCH (16:40)
[2022-05-09] MEDS: HEPARIN SOD 5,000 UNIT/0.5 ML VIAL SQ SCH ×2 (16:40→21:00)
--- NOTE | 2022-05-09 17:03 | Cardiology Consultation ---
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 Preoperative cardiovascular risk considered moderate. Her ECG is abnormal although chronicity unknown. High-sensitivity troponin within normal limits. Echocardiogram reveals preserved LV systolic function with apical thinning suggesting old myocardial infarction. No significant valvular pathology. Cardiac murmur secondary to aortic valve sclerosis without stenosis. Recent nuclear stress test demonstrating stable chronic ischemic heart disease per patient. She was told that cardiac catheterization is not indicated although I do not have details available for review at this time. Perioperative risk discussed with both patient and family at bedside. Functiona l capacity is limited however, stable with reports of recent stable (when compared to 2016) Lexiscan nuclear stress test. Family and patient understand these risks and are willing to proceed with surgery. Recommend continuing beta- frank and aspirin uninterrupted. Brilinta will be placed on hold and restarted postoperatively. Obtain records from outside PCP and senior tax manager (Dr. Garcia) for review. I will continue to follow patient during hospitalization. History of Present Illness Reason for Consultation: Preoperative cardiovascular evaluation Requesting Physician: Dr. Contreras Attending Physician: King Contreras MD History of Present Illness 77-year-old female suffered a mechanical fall 05/08/2022 while walking at a baseball game. She looked up at a fly ball, lost her balance, and fell to the ground injuring her left hip. Fracture confirmed. Patient is unknown to [place] [facility] [place] [facility]. Typically receives her medical care in [place]. Her outpatient senior tax manager is at [facility]. No records available for review at this time. Reports history of coronary artery bypass grafting x2 in the as well as stenting in 2009. 2 years ago she suffered a "mini stroke". Initially prescribed aspirin and Plavix, however, told she was a Plavix nonresponder and she was transitioned to Brilinta. Recently complaining of shortness of breath to her senior tax manager 3 weeks ago. A Lexiscan nuclear stress test was performed. Patient was told the findings were "stable". And there was no need for repeat cardiac catheterization. She also had a 2D echocardiogram performed. Results unavailable for review at this time. History of peripheral vascular disease status post lower extremity bypass surgery. Details unknown. Denies claudication. Patient denies any chest discomfort or unusual shortness of breath. She has not used any sublingual nitroglycerin. Climbs 13 stairs daily in her home. ECG performed on admission demonstrates sinus rhythm with a heart rate of 63 bpm and lateral T wave abnormality. Chronicity of ECG changes unknown. There is no prior ECG available for review. Resting 2D transthoracic echocardiogram demonstrates thinning and akinesis to dyskinesis of the apical inferior and posterior beavers. LV systolic function is preserved. Currently lying flat without shortness of breath. Denies any edema, orthopnea, or PND. Furosemide recently discontinued by primary care physician due to dehydration. Reports significant left hip discomfort. Family present at bedside. They offer no additional concerns/complaints. Allergies Allergy/AdvReac Type Severity Reaction Status Date / Time pollen extracts Allergy Mild Sneezing Verified 05/08/22 23:22 Home Medications Medication Instructions Recorded Confirmed Type amlodipine 10 mg tablet 10 mg PO QAM 05/08/22 05/08/22 History aspirin 81 mg tablet,delayed 81 mg PO QAM 05/08/22 05/08/22 History release atorvastatin 20 mg tablet 20 mg PO HS 05/08/22 05/08/22 History carvedilol 6.25 mg tablet 6.25 mg PO BID 05/08/22 05/08/22 History cholecalciferol (vitamin D3) 25 25 mcg PO QAM 05/08/22 05/08/22 History mcg (1,000 unit) tablet (Vitamin D3) docusate sodium 100 mg capsule 100 mg PO BID PRN 05/08/22 05/08/22 History (Colace) insulin glargine U-300 conc 300 20 unit SUBCUT HS 05/08/22 05/08/22 History unit/mL (3 mL) subcutaneous pen (Toujeo Max U-300 SoloStar) insulin lispro 100 unit/mL 4 unit SUBCUT 05/08/22 05/08/22 History subcutaneous pen (Humalog KwikPen (U-100) Insulin) irbesartan 300 mg tablet 300 mg PO QAM 05/08/22 05/08/22 History isosorbide mononitrate 60 mg 60 mg PO QAM 05/08/22 05/08/22 History tablet,extended release 24 hr nitroglycerin 0.4 mg sublingual 0.4 mg SUBLINGUAL .Q 5 MINUTES PRN 05/08/22 05/08/22 History tablet oxybutynin chloride 5 mg tablet 5 mg PO BID 05/08/22 05/08/22 History sertraline 50 mg tablet 50 mg PO QAM 05/08/22 05/08/22 History ticagrelor 90 mg tablet (Brilinta) 90 mg PO BID 05/08/22 05/08/22 History Patient History Social History Smoking Status: Former smoker Hx Alcohol Use: Yes Alcohol type: wine Hx Substance Use: No Communication Ability: Effective Beliefs That Will Affect Care: None Current Living Situation: Spouse Feels Safe at Home: Yes Safety Concerns: Feels Safe At This Time Assistive Devices: Glasses Review of Systems Review of Systems: All systems reviewed & are unremarkable except as noted in Subjective Physical Exam Constitutional: well nourished; no acute distress and not ill appearing Respiratory: no respiratory distress, no labored breathing and no retractions Auscultation: no crackles, no rales, no rhonchi and no wheezes Cardiovascular: Rate/Rhythm: regular rate and regular rhythm Heart Sounds: normal S1, normal S2 and + murmur (2/6 NELLA) Extremities: no edema Gastrointestinal (Abdomen): Inspection/Auscultation: abdomen not distended, + abnormal bowel sounds and no abdominal edema Percussion/Palpation: abdomen soft; abdomen nontender and no guarding Neurologic: CN's II-XI intact bilaterally; no focal motor deficits Psychiatric: A+Ox3, euthymic affect Results & Data ([facility]) Vital Signs (Past 12 Hours) Vital Signs Temp Pulse Pulse Resp BP Pulse Ox 05/09/22 15:11 36.9 C 75 18 137/77 91 05/09/22 14:35 64 05/09/22 12:06 36.6 C 58 L 18 133/68 93 05/09/22 07:49 37.1 C 109 H 20 118/65 100 05/09/22 06:14 65 (1) Intertrochanteric fracture of left femur Encounter type: initial encounter Fracture alignment: nondisplaced Fracture type: closed Qualified Code(s): S72.145A - Nondisplaced intertrochanteric fracture of left femur, initial encounter for closed fracture
[2022-05-09] MEDS: ATORVASTATIN 20 MG TAB PO SCH (21:05)
[2022-05-10] MEDS ORDERED: Nursing to Pharmacy Communication SCH ×2 (00:30→16:15)
[2022-05-10] MEDS: HYDROmorphone INJ 0.5 MG/0.5 ML SYR IV PRN (03:22)
[2022-05-10] MEDS: oxyCODONE HCL IR 5 MG TAB (IMMEDIATE RELEASE) PO PRN ×2 (05:50→19:19)
[2022-05-10 05:56] LABS: Basophils # (auto) 0.03 K/uL (0-0.2); Basophils % (auto) 0.3 %; Eosinophils # (auto) 0.12 K/uL (0-0.50); Eosinophils % (auto) 1.2 %; Hematocrit (blood only) 37.2 % (34.1-44.9); Hemoglobin 12.4 g/dl (12.0-16.0); Immature Granulocytes # (auto) 0.04 K/uL (0.00-0.02); Immature Granulocytes % (auto) 0.4 %; Lymphocytes # (auto) 1.38 K/uL (1.2-3.4); Lymphocytes % (auto) 14.3 %; Mean Corpuscular Hemoglobin 30.2 pg (25.0-34.0); Mean Corpuscular Hgb Conc 33.3 g/dL (32.0-36.0); Mean Corpuscular Volume 90.5 fL (80.0-100.0); Mean Platelet Volume 10.3 fL (9.4-12.3); Monocytes # (auto) 0.82 K/uL (0.24-0.82); Monocytes % (auto) 8.5 %; Neutrophils # (auto) 7.25 K/uL (1.4-6.5); Neutrophils % (auto) 75.3 %; Platelet Count 181 K/uL (130-400); RDW Standard Deviation 42.8 fL (36.4-46.3); Red Blood Count 4.11 M/uL (3.93-5.22); White Blood Count 9.64 K/ul (4.8-10.8)
[2022-05-10] MEDS: INSULIN ASPART PER UNIT SC SCH ×4 (06:07→20:50)
[2022-05-10 06:15] LABS: BUN Creatinine Ratio 19.4 (10-20); Calcium 9.1 mg/dl (8.5-10.1); Creatinine Clr Calc Pharmacy 62.1 ml/min; Est GFR (African American) 93.6 ml/min; Est GFR (Non-African American) 80.8 ml/min; Magnesium 1.9 mg/dl (1.7-2.4); Potassium 4.2 mmol/L (3.5-5.1)
--- NOTE | 2022-05-10 07:31 | Anesthesiology Consultation ---
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 History Surgery Operation Date: 05/10/22 10:00 Proposed Procedures p Intramedullary Humberto Femur(Left) - Kev Coleman DO Height/Weight Height: 5 ft Weight: 82.1 kg Allergies Allergy/AdvReac Type Severity Reaction Status Date / Time pollen extracts Allergy Mild Sneezing Verified 05/08/22 23:22 Medications Home Medications Medication Instructions Recorded Confirmed Last Taken amlodipine 10 mg tablet 10 mg PO QAM 05/08/22 05/08/22 05/08/22 aspirin 81 mg tablet,delayed 81 mg PO QAM 05/08/22 05/08/22 05/08/22 release atorvastatin 20 mg tablet 20 mg PO 05/08/22 05/08/22 05/07/22 carvedilol 6.25 mg tablet 6.25 mg PO BID 05/08/22 05/08/22 05/08/22 am cholecalciferol (vitamin D3) 25 25 mcg PO QAM 05/08/22 05/08/22 05/08/22 mcg (1,000 unit) tablet (Vitamin D3) docusate sodium 100 mg capsule 100 mg PO BID PRN 05/08/22 05/08/22 Unknown (Colace) insulin glargine U-300 conc 300 20 unit SUBCUT 05/08/22 05/08/22 05/07/22 unit/mL (3 mL) subcutaneous pen (Toujeo Max U-300 SoloStar) insulin lispro 100 unit/mL 4 unit SUBCUT 05/08/22 05/08/22 05/08/22 subcutaneous pen (Humalog KwikPen (U-100) Insulin) irbesartan 300 mg tablet 300 mg PO QAM 05/08/22 05/08/22 05/08/22 isosorbide mononitrate 60 mg 60 mg PO QAM 05/08/22 05/08/22 05/08/22 tablet,extended release 24 hr nitroglycerin 0.4 mg sublingual 0.4 mg SUBLINGUAL .Q 5 MINUTES PRN 05/08/2206/22 Unknown tablet oxybutynin chloride 5 mg tablet 5 mg PO BID 05/08/22 05/08/22 05/08/22 am sertraline 50 mg tablet 50 mg PO QAM 05/08/22 05/08/22 05/08/22 ticagrelor 90 mg tablet (Brilinta) 90 mg PO BID 05/08/22 05/08/22 05/08/22 am Active Medications Generic Name Dose Route Start Last Admin Trade Name Carltonq PRN Reason Stop Dose Admin Acetaminophen 650 mg 05/09/22 02:18 05/09/22 02:42 Acetaminophen 325 Mg Tab PO 06/08/22 02:17 650 mg Q6H PRN Administration Fever/pain Aspirin 81 mg 05/09/22 09:00 05/09/22 08:02 Aspirin 81 Mg Ectab PO 06/08/22 08:59 81 mg QAM FREDDIE Administration Atorvastatin Calcium 20 mg 05/09/22 21:00 05/09/22 21:05 Atorvastatin 20 Mg Tab PO 06/08/22 20:59 20 mg HS FREDDIE Administration Carvedilol 6.25 mg 05/09/22 09:00 05/09/22 21:04 Carvedilol 6.25 Mg Tab PO 06/08/22 08:59 6.25 mg BID FREDDIE Administration Cyanocobalamin 500 mcg 05/09/22 16:00 05/09/22 16:40 Cyanocobalamin (B-12) 500 Mcg Tablet PO 06/08/22 15:59 500 mcg QAM FREDDIE Administration Hydromorphone HCl 0.25 mg 05/09/22 02:18 05/10/22 03:22 Hydromorphone Inj 0.5 Mg/0.5 Ml Syr IV 05/23/22 02:17 0.25 mg Q3H PRN Administration Pain Insulin Aspart 0 units 05/10/22 06:00 05/10/22 06:07 Insulin Aspart Per Unit SC 06/09/22 05:59 1 units Q6 FREDDIE Administration Insulin Glargine 5 units 05/09/22 02:55 05/09/22 21:03 Lantus Per Unit Charge SQ 06/08/22 02:54 5 units HS FREDDIE Administration Oxybutynin Chloride 5 mg 05/09/22 09:00 05/09/22 21:04 Oxybutynin Chloride 5 Mg Tab PO 06/08/22 08:59 5 mg BID FREDDIE Administration Oxycodone HCl 5 mg 05/09/22 02:18 05/10/22 05:50 Oxycodone Hcl Ir 5 Mg Tab (Immediate Release) PO 05/23/22 02:17 5 mg Q4H PRN Administration Pain Sertraline HCl 50 mg 05/09/22 09:00 05/09/22 08:02 Sertraline Hcl 50 Mg Tablet PO 06/08/22 08:59 50 mg QAM FREDDIE Administration NPO Date Last Intake of Fluids: 05/10/22 Time Last Intake of Fluids: 05:45 Last Intake of Fluids Comment: sip of water with med Date Last Intake of Solids: 05/09/22 Social History Smoking Status: Former smoker Hx Alcohol Use: Yes Alcohol type: wine alcohol intake frequency: holidays/special occasions only Hx Substance Use: No Physical Exam Vital Signs Last Vital Signs Temp 99.1 F 05/10/22 07:00 Pulse 69 05/10/22 07:00 Resp 20 05/10/22 07:00 BP 162/61 H 05/10/22 07:00 Pulse Ox 93 05/10/22 07:00 Testing Laboratory Results 05/10/22 05:32 05/10/22 05:32 PT 10.9 Seconds (9.0-12.0) 05/08/22 23:27 INR 1.0 (0.9-1.1) 05/08/22 23:27 APTT 24.5 Seconds (21.0-31.0) 05/08/22 23:27 Hemoglobin A1c 7.3 % (4.5-5.6) H 05/09/22 03:20 Urine Color Yellow 05/09/22 00:23 Urine Appearance Clear (Clear) 05/09/22 00:23 Urine pH 7.5 (4.5-7.5) 05/09/22 00:23 Ur Specific [place] 1.015 (1.000-1.030) 05/09/22 00:23 Urine Protein Negative (Negative) 05/09/22 00:23 Urine Glucose (UA) Negative (Negative) 05/09/22 00:23 Urine Ketones Negative (Negative) 05/09/22 00:23 Urine Nitrite Negative (Negative) 05/09/22 00:23 Ur Leukocyte Esterase Negative (Negative) 05/09/22 00:23 Blood Type O Positive 05/09/22 03:20 Antibody Screen NEGATIVE 05/09/22 03:20 05/10/22 05/10/22 05/09/22 05:47 00:11 20:04 POC Glucose 160 H 140 H 126 H Electrocardiogram Date: 05/09/22 Poor data quality, interpretation may be adversely affected Normal sinus rhythm, rate 67 bpm Septal infarct (cited on or before 09-MAY-2022) ST & T wave abnormality, consider anterolateral ischemia Abnormal ECG When compared with ECG of 08-MAY-2022 23:27, No significant change was found Chest X-Ray Date: 05/08/22 IMPRESSION: 1. No acute cardiopulmonary disease. 2. The patient is status post previous cardiothoracic surgery. Echocardiogram Date: 05/09/22 EF 55-60% Septal motion is consistent with post-operative state LV apex is poorly visualized The apical inferior appears thinned and akinetic The apical lateral wall appears thinned and dyskinetic in limited views AV sclerosis moderate, without significant AV stenosis Mild AR/MR Moderate TR The estimated systolic pulmonary pressure is 38 mmHg
[2022-05-10] MEDS: ASPIRIN 81 MG ECTAB PO SCH (08:02)
[2022-05-10] MEDS: OXYBUTYNIN CHLORIDE 5 MG TAB PO SCH ×2 (08:03→20:49)
[2022-05-10] MEDS: carvediloL 6.25 MG TAB PO SCH ×2 (08:03→20:50)
[2022-05-10] MEDS: SERTRALINE HCL 50 MG TABLET PO SCH (08:03)
[2022-05-10] MEDS: CYANOCOBALAMIN (B-12) 500 MCG TABLET PO SCH (08:03)
[2022-05-10] MEDS ORDERED: ePHEDrine sulfate 50 MG/ML AMP IV PRN (08:12)
[2022-05-10] MEDS ORDERED: ONDANSETRON INJ 2 MG/ML 2 ML VIAL IV PRN (08:12)
[2022-05-10] MEDS ORDERED: fentaNYL citrate 100 MCG/2 ML VIAL IV PRN (08:12)
[2022-05-10] MEDS ORDERED: ATROPINE SULFATE 0.1 MG/ML 10ML SYR IV PRN (08:12)
--- NOTE | 2022-05-10 08:41 | History & Physical Bridge Note ---
Date of Service May 10, 2022 History & Physical Bridge Note I have examined the patient, reviewed the History & Physical and in the interval since the performance of the History & Physical I have noted the following changes of clinical significance: no changes noted
[2022-05-10] MEDS ORDERED: MIDAZOLAM HCL 1 MG/ML 2ML VIAL ONE (09:04)
[2022-05-10] MEDS ORDERED: fentaNYL citrate 100 MCG/2 ML VIAL ONE ×2 (09:05→10:53)
[2022-05-10] MEDS ORDERED: ONDANSETRON INJ 2 MG/ML 2 ML VIAL ONE (09:52)
[2022-05-10] MEDS ORDERED: ePHEDrine sulfate 50 MG/ML AMP ONE (09:52)
[2022-05-10] MEDS ORDERED: LIDOCAINE 2% 2 ML VIAL/AMP(20MG/ML) INFIL ONE (09:52)
[2022-05-10] MEDS ORDERED: PROPOFOL IV EMULSION 10 MG/ML 20 ML VIAL IV ONE (09:52)
[2022-05-10] MEDS ORDERED: ceFAZolin 2000MG 2,000 MG/15 ML SYR IV ONE (10:00)
--- NOTE | 2022-05-10 10:35 | Post Operative Brief Note ---
Immediate Post Op Note v1 Date of Surgery May 10, 2022 Pre & Post Diagnosis Operation Date: 05/10/22 10:00 Pre-Op Diagnosis: Angulated, comminuted intertrochanteric fracture of left hip Post-Op Diagnosis: Angulated, comminuted intertrochanteric fracture of left hip I identified the patient and participated in the time-out.: Yes Procedure Operation Date: 05/10/22 10:00 Actual Procedures p Open reduction internal fixation left angulated, comminuted intertrochanteric hip fracture with Synthes trochanteric fixation nail 11 mm x 130 degrees x 235 mm, 11.0 mm x 95 mm helical blade, 5 x 38 mm locking screw. (Left) - Kev Coleman DO Surgeon Kev Coleman DO Customer Account Administrator Milagro Shaw PA-C Estimated Blood Loss 90 Findings Consistent with Post-Op Diagnosis Drains Martínez Catheter (Patient arrived to operating room with Martínez catheter intact ) Anesthesia Type General Complications none Disposition Accompanied Patient To Recovery: No
[2022-05-10] MEDS ORDERED: SOD PHOSPHATE/SOD BIPHOSPHATE ENEMA 132 ML BTL PR PRN (11:02)
--- NOTE | 2022-05-10 11:28 | Anesthesiology Progress Note ---
Date of Service May 10, 2022 Anesthesia Post Procedure Vital Signs Vital Signs: Temp Pulse Pulse Pulse Resp BP BP 05/10/22 11:20 68 17 151/59 H 05/10/22 11:10 98.1 F 65 13 137/58 L 05/10/22 11:00 63 18 121/56 L 05/10/22 10:50 72 17 155/62 H 05/10/22 10:43 97.5 F L 70 16 163/62 H 05/10/22 07:00 99.1 F 69 20 162/61 H 05/10/22 06:17 65 05/10/22 04:00 97.9 F 65 20 163/64 H 05/09/22 22:17 70 05/09/22 22:00 99.1 F 69 20 149/55 H 05/09/22 21:00 75 131/75 05/09/22 18:42 98.6 F 114 H 18 128/85 05/09/22 15:11 98.4 F 75 18 137/77 05/09/22 14:35 64 05/09/22 12:06 97.9 F 58 L 18 133/68 Pulse Ox 05/10/22 11:20 95 05/10/22 11:10 96 05/10/22 11:00 95 05/10/22 10:50 95 05/10/22 10:43 95 05/10/22 07:00 93 05/10/22 06:17 05/10/22 04:00 92 05/09/22 22:17 05/09/22 22:00 93 05/09/22 21:00 05/09/22 18:42 99 05/09/22 15:11 91 05/09/22 14:35 05/09/22 12:06 93 Pain Intensity Left Hip: Pain Intensity: 4 Transfer of Care Handoff Completed per policy Notes Mental Status: alert / awake / arousable and participated in evaluation Patient Amnestic to Procedure: Yes Nausea / Vomiting: adequately controlled Pain: adequately controlled Airway Patency, RR, SpO2: stable & adequate BP & HR: stable & adequate Hydration State: stable & adequate Anesthetic Complications: no major complications apparent and Pt Satisfied with anesthetic care
--- NOTE | 2022-05-10 11:34 | Fluoroscopy Report ---
FL hip LT 2-3V CLINICAL HISTORY: LT TROCH NAIL TECHNIQUE: 4 views were obtained with the C-arm in the OR with the above procedure. Total fluoroscopy time was 100 seconds. Total skin dose was 30.4 mGy. Comparison: None available at the time of this dictation. FINDINGS/IMPRESSION: Intraoperative images were obtained of the trochanteric nail placement. Please correlate with intraoperative fluoroscopy and operative report. ACT 112: Negative or not required by law. Electronically signed by: Pedro Morley M.D. 05/10/2022 11:32 AM
[2022-05-10] MEDS ORDERED: NITROGLYCERIN SL 0.4 MG/TAB TAB SL PRN (11:37)
--- NOTE | 2022-05-10 12:10 | Electrocardiogram Report ---
Test Reason : Blood Pressure : / mmHG Vent. Rate : 067 BPM Atrial Rate : 067 BPM P-R Int : 134 ms QRS Dur : 082 ms QT Int : 404 ms P-R-T Axes : 057 037 103 degrees QTc Int : 426 ms Poor data quality, interpretation may be adversely affected Normal sinus rhythm Abnormal ECG When compared with ECG of 08-MAY-2022 23:27, No significant change was found Confirmed by Gary Lucas ([id number]) on 05/10/2022 12:09:24 PM Referred By: REFERRED SELF Confirmed By:Kamran Lucas
--- NOTE | 2022-05-10 12:10 | XRay Report ---
XR hip LT min 2V CLINICAL HISTORY: Post-Operative implant position TECHNIQUE: 2 views of the left hip were obtained. Comparison: Comparison is made to left hip radiograph 05/08/2022 FINDINGS: Patient is status post total hip arthroplasty with expected postsurgical changes including soft tissu e swelling, subcutaneous emphysema, and surgical staple placement. No periarticular lucency or hardwa re fracture is seen. A bony fragment is noted in the medial aspect of the femoral neck. No soft tissu e abnormality is seen. IMPRESSION: Status post trochanteric nail placement with expected postoperative appearance status post femur frac ture. ACT 112: Negative or not required by law. Electronically signed by: Pedro Morley M.D. 05/10/2022 12:08 PM
--- NOTE | 2022-05-10 12:35 | Hospitalist Progress Note ---
Date of Service May 10, 2022 Assessment & Plan (1) Intertrochanteric fracture of left femur: Plan: 77 year old female who presented to the ED 05/08 after mechanical fall sustaining left hip fracture. She was at a baseball game and fell down on left side while trying to get out of the way. Left femur intertrochanteric fracture after mechanical fall- s/p ORIF today by Dr Coleman POD#0 - continue pain management, bowel regimen, PT eval - further management per ortho Procedure 05/10/22: Open reduction internal fixation left angulated, comminuted intertrochanteric hip fracture with Synthes trochanteric fixation nail 11 mm x 130 degrees x 235 mm, 11.0 mm x 95 mm helical blade, 5 x 38 mm locking screw. DM-2- A1c 7.8. Continue lantus, SSI H/o TIA 2019- on ASA, statin. Brilinta on hold. Resume when okay per ortho h/o CAD s/p CABG 1998 and stenting 2009- No Chest pain. Had RUVALCABA and had stress test with her OP cardio 3 weeks back, said to be stable. Leucocytosis- likely reactive. resolved Hypomagnesemia- resolved Low B12 level- started on po supplementation. DVT ppx- sc lovenox Dispo- OR today. Will need PT eval and rehab. Admission and Anticipated Discharge Date Admission Date: May 09, 2022 Subjective Seen after the OR. Denies any pain. Feels okay. No N/V. No appetite yet. Physical Exam Physical Exam: General: Lying comfortably in bed, not in distress, on NC HEENT: EOMI, MEGHA, MMM Chest: Clear breath sounds bilaterally, no wheezes or crackles CVS: Regular rate and rhythm, normal heart sounds, no murmur Abdomen: Soft, non tender, not distended, normal bowel sounds Neuro: Awake, alert, oriented, conversing well Extremities: Left hip incision site clean dry intact- on ice pack Results & Data Results & Data ([facility]) Vital Signs (Past 12 Hours) Vital Signs Temp Pulse Pulse Pulse Pulse Resp BP 05/10/22 11:55 36.9 C 62 16 127/65 05/10/22 11:38 36.9 C 63 16 149/68 H 05/10/22 11:20 68 17 151/59 H 05/10/22 11:10 36.7 C 65 13 137/58 L 05/10/22 11:00 63 18 121/56 L 05/10/22 10:50 72 17 155/62 H 05/10/22 10:43 36.4 C L 70 16 163/62 H 05/10/22 07:00 37.3 C 69 20 162/61 H 05/10/22 06:17 65 05/10/22 04:00 36.6 C 65 20 163/64 H Pulse Ox 05/10/22 11:55 98 05/10/22 11:38 94 05/10/22 11:20 95 05/10/22 11:10 96 05/10/22 11:00 95 05/10/22 10:50 95 05/10/22 10:43 95 05/10/22 07:00 93 05/10/22 06:17 05/10/22 04:00 92 Laboratory Results Short CBC 05/10/22 Range/Units 05:32 WBC 9.64 (4.8-10.8) K/ul Hgb 12.4 (12.0-16.0) g/dl Hct 37.2 (34.1-44.9) % Plt Count 181 (130-400) K/uL BMP 05/10/22 05:32 Sodium 133 L Potassium 4.2 Chloride 103 Carbon Dioxide 24 BUN 14 Creatinine 0.72 D Glucose 178 H Calcium 9.1 Diagnostic Findings Hip X-Ray 05/10/22 00:00 FL hip LT 2-3V CLINICAL HISTORY: LT TROCH NAIL TECHNIQUE: 4 views were obtained with the C-arm in the OR with the above procedure. Total fluoroscopy time was 100 seconds. Total skin dose was 30.4 mGy. Comparison: None available at the time of this dictation. FINDINGS/IMPRESSION: Intraoperative images were obtained of the trochanteric nail placement. Please correlate with intraoperative fluoroscopy and operative report. ACT 112: Negative or not required by law. Electronically signed by: Pedro Morley M.D. 05/10/2022 11:32 AM Hip X-Ray 05/10/22 11:03 XR hip LT min 2V CLINICAL HISTORY: Post-Operative implant position TECHNIQUE: 2 views of the left hip were obtained. Comparison: Comparison is made to left hip radiograph 05/08/2022 FINDINGS: Patient is status post total hip arthroplasty with expected postsurgical changes including soft tissue swelling, subcutaneous emphysema, and surgical staple placement. No periarticular lucency or hardware fracture is seen. A bony fragment is noted in the medial aspect of the femoral neck. No soft tissue abnormality is seen. IMPRESSION: Status post trochanteric nail placement with expected postoperative appearance status post femur fracture. ACT 112: Negative or not required by law. Electronically signed by: Pedro Morley M.D. 05/10/2022 12:08 PM Medications Administered Current Inpatient Medications Acetaminophen (Acetaminophen 325 Mg Tab) 650 mg PO Q6H PRN PRN Reason: Fever/pain Stop: 06/08/22 02:17 Last Admin: 05/09/22 02:42 Dose: 650 mg Documented by: Atorvastatin Calcium (Atorvastatin 20 Mg Tab) 20 mg PO HS FREDDIE Stop: 06/08/22 20:59 Last Admin: 05/09/22 21:05 Dose: 20 mg Documented by: Atropine Sulfate (Atropine Sulfate 0.1 Mg/Ml 10ml Syr) 0.5 mg IV Q1M PRN PRN Reason: PACU Use-HR<40 &/or Bradycardi Stop: 05/10/22 16:12 Bisacodyl (Bisacodyl 10 Mg Supp) 10 mg MI DAILY PRN PRN Reason: Constipation Stop: 06/08/22 03:49 Carvedilol (Carvedilol 6.25 Mg Tab) 6.25 mg PO BID FREDDIE Stop: 06/08/22 08:59 Last Admin: 05/10/22 08:03 Dose: 6.25 mg Documented by: Cyanocobalamin (Cyanocobalamin (B-12) 500 Mcg Tablet) 500 mcg PO QAM FREDDIE Stop: 06/08/22 15:59 Last Admin: 05/10/22 08:03 Dose: 500 mcg Documented by: Dextrose (Dextrose 50% 50 Ml Syringe) 25 - 50 ml IV UD PRN; Protocol PRN Reason: Hypoglycemia Protocol Stop: 06/08/22 03:49 Docusate Sodium (Docusate Sodium 100 Mg Cap) 100 mg PO BID PRN PRN Reason: Constipation Stop: 06/08/22 03:49 Ephedrine Sulfate (Ephedrine Sulfate 50 Mg/Ml Amp) 5 mg IV Q5M PRN PRN Reason: PACU Use Only-SBP<90 mmHg Stop: 05/10/22 16:12 Fentanyl Citrate (Fentanyl Citrate 100 Mcg/2 Ml Vial) 50 mcg IV Q5M PRN PRN Reason: PACU Use Only-Pain Stop: 05/10/22 16:12 Last Admin: 05/10/22 10:54 Dose: 50 mcg Documented by: Glucagon (Glucagon For Inj 1 Mg Vial) 1 mg SQ UD PRN; Protocol PRN Reason: Hypoglycemia Protocol Stop: 06/08/22 03:49 Glucose (Glucose 10 Tabs/Tube) 4 - 8 tab PO UD PRN; Protocol PRN Reason: Hypoglycemia Protocol Stop: 06/08/22 03:49 Glucose (Glucose 40% Gel 15 Gm Tube) 15 - 30 gm PO UD PRN; Protocol PRN Reason: Hypoglycemia Protocol Stop: 06/08/22 03:49 Heparin Sodium (Porcine) (Heparin Sod 5,000 Unit/0.5 Ml Vial) 5,000 units SQ Q8 [facility] Stop: 06/09/22 13:59 Hydromorphone HCl (Hydromorphone Inj 0.5 Mg/0.5 Ml Syr) 0.25 mg IV Q3H PRN PRN Reason: Pain Stop: 05/23/22 02:17 Last Admin: 05/10/22 03:22 Dose: 0.25 mg Documented by: Promethazine HCl 12.5 mg/ (Sodium Chloride) 50.5 mls @ 202 mls/hr IV Q6H PRN PRN Reason: Nausea And Vomiting Stop: 06/08/22 02:17 Insulin Aspart (Insulin Aspart Per Unit) 0 units SC Q6 FREDDIE Stop: 06/09/22 05:59 Last Admin: 05/10/22 06:07 Dose: 1 units Documented by: Insulin Glargine (Lantus Per Unit Charge) 5 units SQ HS [facility] Stop: 06/08/22 02:54 Last Admin: 05/09/22 21:03 Dose: 5 units Documented by: Miscellaneous (Carbohydrates For Hypoglycemia ) 15 - 30 gm PO UD PRN PRN Reason: Hypoglycemia Protocol Stop: 06/08/22 03:49 Naloxone HCl (Naloxone Hcl 0.4 Mg/1 Ml Vial/Carp) 0.1 mg IV UD PRN PRN Reason: Opiate Overdose Stop: 06/08/22 03:49 Nitroglycerin (Nitroglycerin Sl 0.4 Mg/Tab Tab) 0.4 mg SL Q5M PRN PRN Reason: Chest Pain Stop: 06/09/22 11:36 Ondansetron HCl (Ondansetron Inj 2 Mg/Ml 2 Ml Vial) 4 mg IV ONCE PRN PRN Reason: PACU Use Only-Nausea/Vomiting Stop: 05/10/22 16:12 Oxybutynin Chloride (Oxybutynin Chloride 5 Mg Tab) 5 mg PO BID FREDDIE Stop: 06/08/22 08:59 Last Admin: 05/10/22 08:03 Dose: 5 mg Documented by: Oxycodone HCl (Oxycodone Hcl Ir 5 Mg Tab (Immediate Release)) 5 mg PO Q4H PRN PRN Reason: Pain Stop: 05/23/22 02:17 Last Admin: 05/10/22 05:50 Dose: 5 mg Documented by: Polyethylene Glycol (Polyethylene (Miralax) 17 Gm Pack) 17 gm PO Q6 FREDDIE Stop: 06/11/22 11:59 Sertraline HCl (Sertraline Hcl 50 Mg Tablet) 50 mg PO QAM FREDDIE Stop: 06/08/22 08:59 Last Admin: 05/10/22 08:03 Dose: 50 mg Documented by: Sodium Biphosphate/Sodium Phosphate (Sod Phosphate/Sod Biphosphate Enema 132 Ml Btl) 132 ml MI DAILY PRN PRN Reason: Constipation Stop: 06/09/22 11:01 Ticagrelor (Ticagrelor 90 Mg Tab) 90 mg PO BID [facility] Stop: 06/10/22 08:59 Vitamin D (Cholecalciferol 1,000 Units 25 Mcg Tab) 1,000 units PO QAM FREDDIE Stop: 06/10/22 08:59 (1) Intertrochanteric fracture of left femur Encounter type: initial encounter Fracture alignment: nondisplaced Fracture type: closed Qualified Code(s): S72.145A - Nondisplaced intertrochanteric fracture of left femur, initial encounter for closed fracture
[2022-05-10] MEDS ORDERED: HEPARIN SOD 5,000 UNIT/0.5 ML VIAL SQ SCH (14:00)
[2022-05-10] MEDS: ATORVASTATIN 20 MG TAB PO SCH (20:49)
[2022-05-10] MEDS: LANTUS PER UNIT CHARGE SQ SCH (20:50)
[2022-05-11] MEDS: oxyCODONE HCL IR 5 MG TAB (IMMEDIATE RELEASE) PO PRN (02:54)
[2022-05-11] MEDS ORDERED: SODIUM CHLORIDE 0.9% 1000ML 1,000 ML IV ONE (05:56)
[2022-05-11 08:15] LABS: Basophils # (auto) 0.04 K/uL (0-0.2); Basophils % (auto) 0.4 %; Eosinophils # (auto) 0.06 K/uL (0-0.50); Eosinophils % (auto) 0.5 %; Hematocrit (blood only) 28.8 % (34.1-44.9); Hemoglobin 9.7 g/dl (12.0-16.0); Immature Granulocytes # (auto) 0.05 K/uL (0.00-0.02); Immature Granulocytes % (auto) 0.4 %; Lymphocytes # (auto) 1.75 K/uL (1.2-3.4); Lymphocytes % (auto) 15.7 %; Mean Corpuscular Hemoglobin 30.2 pg (25.0-34.0); Mean Corpuscular Hgb Conc 33.7 g/dL (32.0-36.0); Mean Corpuscular Volume 89.7 fL (80.0-100.0); Mean Platelet Volume 10.2 fL (9.4-12.3); Monocytes % (auto) 12.5 %; Neutrophils # (auto) 7.86 K/uL (1.4-6.5); Neutrophils % (auto) 70.5 %; Platelet Count 159 K/uL (130-400); RDW Standard Deviation 42.9 fL (36.4-46.3); Red Blood Count 3.21 M/uL (3.93-5.22); White Blood Count 11.16 K/ul (4.8-10.8)
[2022-05-11] MEDS: OXYBUTYNIN CHLORIDE 5 MG TAB PO SCH ×2 (08:41→21:45)
[2022-05-11] MEDS: carvediloL 6.25 MG TAB PO SCH ×2 (08:41→21:44)
[2022-05-11] MEDS: CYANOCOBALAMIN (B-12) 500 MCG TABLET PO SCH (08:42)
[2022-05-11] MEDS: SERTRALINE HCL 50 MG TABLET PO SCH (08:42)
[2022-05-11] MEDS: CHOLECALCIFEROL 1,000 UNITS 25 MCG TAB PO SCH (08:42)
[2022-05-11] MEDS: TICAGRELOR 90 MG TAB PO SCH ×2 (08:42→21:45)
[2022-05-11] MEDS: INSULIN ASPART PER UNIT SC SCH ×4 (08:45→21:44)
[2022-05-11 08:55] LABS: BUN Creatinine Ratio 23.4 (10-20); Calcium 8.6 mg/dl (8.5-10.1); Creatinine Clr Calc Pharmacy 47.6 ml/min; Est GFR (African American) 67.8 ml/min; Est GFR (Non-African American) 58.5 ml/min; Potassium 4.3 mmol/L (3.5-5.1)
[2022-05-11] MEDS: ENOXAPARIN INJ 40 MG/0.4 ML SYR SQ SCH (09:33)
--- NOTE | 2022-05-11 10:18 | Hospitalist Progress Note ---
Date of Service May 11, 2022 Assessment & Plan (1) Intertrochanteric fracture of left femur: Plan: 77 year old female who presented to the ED 05/08 after mechanical fall sustaining left hip fracture. She was at a baseball game and fell down on left side while trying to get out of the way. Left femur intertrochanteric fracture after mechanical fall- s/p ORIF today by Dr Coleman POD#1 - continue pain management, bowel regimen, PT eval - further management per ortho- will clarify timing of her antiplatelets with ortho - lovenox for DVT prophylaxis Procedure 05/10/22: Open reduction internal fixation left angulated, comminuted intertrochanteric hip fracture with Synthes trochanteric fixation nail 11 mm x 130 degrees x 235 mm, 11.0 mm x 95 mm helical blade, 5 x 38 mm locking screw. DM-2- A1c 7.8. Continue lantus, SSI H/o TIA 2019- on ASA, brilinta, statin as OP. Will resume antiplatelet when okay per ortho h/o CAD s/p CABG 1998 and stenting 2009- No Chest pain. Had RUVALCABA and had stress test with her OP cardio 3 weeks back, said to be stable. Seen by cardio preop. Leucocytosis- likely reactive. Hypomagnesemia- resolved Low B12 level- started on po supplementation Vit D deficiency- started on oral supplementation. Hyponatremia- Na 133->130. Getting IVF. Will monitor. Recheck in am. DVT ppx- sc lovenox Dispo- Pending PT eval- patient will likely need rehab. Admission and Anticipated Discharge Date Admission Date: May 09, 2022 Subjective Has some pain at the incision site 04/10, controlled with oxycodone. No fever, chills, nausea, vomiting. Tolerating oral intake without issues. passing gas, no BM yet. Awaiting PT eval. She would like to keep the geller in for now as she states she can not use the bed taylor. Physical Exam Physical Exam: General: Lying comfortably in bed, not in distress, on NC HEENT: EOMI, MEGHA, MMM Chest: Clear breath sounds bilaterally, no wheezes or crackles CVS: Regular rate and rhythm, normal heart sounds, no murmur Abdomen: Soft, non tender, not distended, normal bowel sounds Neuro: Awake, alert, oriented, conversing well Extremities: Left hip incision site clean dry intact- on ice pack Results & Data Results & Data ([facility]) Vital Signs (Past 12 Hours) Vital Signs Temp Pulse Pulse Resp BP BP Pulse Ox 05/11/22 08:22 37.1 C 97 H 18 119/72 100 05/11/22 06:10 72 05/11/22 02:56 36.8 C 80 20 115/55 L 93 05/11/22 02:53 113/63 05/10/22 22:52 36.8 C 58 L 20 107/64 95 05/10/22 22:14 76 Laboratory Results Short CBC 05/08/22 05/09/22 05/10/22 Range/Units 23:27 03:20 05:32 WBC (4.8-10.8) K/ul Hgb (12.0-16.0) g/dl Hct (34.1-44.9) % Plt Count (130-400) K/uL Sodium 136 135 L 133 L (136-145) mmol/L 25-OH Vitamin D Total (30-100) ng/ml 05/11/22 05/11/22 05/11/22 Range/Units 07:58 07:58 07:58 WBC 11.16 H (4.8-10.8) K/ul Hgb 9.7 L (12.0-16.0) g/dl Hct 28.8 L (34.1-44.9) % Plt Count 159 (130-400) K/uL Sodium 130 L (136-145) mmol/L 25-OH Vitamin D Total 19.0 L (30-100) ng/ml [facility] 05/11/22 07:58 Sodium 130 L Potassium 4.3 Chloride 99 Carbon Dioxide 24 BUN 22 Creatinine 0.94 Glucose 155 H Calcium 8.6 Medications Administered Current Inpatient Medications Acetaminophen (Acetaminophen 325 Mg Tab) 650 mg PO Q6H PRN PRN Reason: Fever/pain Stop: 06/08/22 02:17 Last Admin: 05/09/22 02:42 Dose: 650 mg Documented by: Atorvastatin Calcium (Atorvastatin 20 Mg Tab) 20 mg PO HS FREDDIE Stop: 06/08/22 20:59 Last Admin: 05/10/22 20:49 Dose: 20 mg Documented by: Bisacodyl (Bisacodyl 10 Mg Supp) 10 mg [place] DAILY PRN PRN Reason: Constipation Stop: 06/08/22 03:49 Carvedilol (Carvedilol 6.25 Mg Tab) 6.25 mg PO BID FREDDIE Stop: 06/08/22 08:59 Last Admin: 05/11/22 08:41 Dose: 6.25 mg Documented by: Cyanocobalamin (Cyanocobalamin (B-12) 500 Mcg Tablet) 500 mcg PO QAM FREDDIE Stop: 06/08/22 15:59 Last Admin: 05/11/22 08:42 Dose: 500 mcg Documented by: Dextrose (Dextrose 50% 50 Ml Syringe) 25 - 50 ml IV UD PRN; Protocol PRN Reason: Hypoglycemia Protocol Stop: 06/08/22 03:49 Docusate Sodium (Docusate Sodium 100 Mg Cap) 100 mg PO BID PRN PRN Reason: Constipation Stop: 06/08/22 03:49 Enoxaparin Sodium (Enoxaparin Inj 40 Mg/0.4 Ml Syr) 40 mg SQ QAM FREDDIE Stop: 06/10/22 08:59 Last Admin: 05/11/22 09:33 Dose: 40 mg Documented by: Ergocalciferol (Ergocalciferol 50,000 Units 1250 Mcg Cap) 50,000 units PO Q7D FREDDIE Stop: 06/10/22 10:14 Glucagon (Glucagon For Inj 1 Mg Vial) 1 mg SQ UD PRN; Protocol PRN Reason: Hypoglycemia Protocol Stop: 06/08/22 03:49 Glucose (Glucose 10 Tabs/Tube) 4 - 8 tab PO UD PRN; Protocol PRN Reason: Hypoglycemia Protocol Stop: 06/08/22 03:49 Glucose (Glucose 40% Gel 15 Gm Tube) 15 - 30 gm PO UD PRN; Protocol PRN Reason: Hypoglycemia Protocol Stop: 06/08/22 03:49 Hydromorphone HCl (Hydromorphone Inj 0.5 Mg/0.5 Ml Syr) 0.25 mg IV Q3H PRN PRN Reason: Pain Stop: 05/23/22 02:17 Last Admin: 05/10/22 03:22 Dose: 0.25 mg Documented by: Promethazine HCl 12.5 mg/ (Sodium Chloride) 50.5 mls @ 202 mls/hr IV Q6H PRN PRN Reason: Nausea And Vomiting Stop: 06/08/22 02:17 Sodium Chloride (Nss 1000ml) 1,000 mls @ 75 mls/hr IV .[id number] ONE Stop: 05/11/22 19:15 Last Admin: 05/11/22 06:07 Dose: 75 mls/hr Documented by: Insulin Aspart (Insulin Aspart Per Unit) 0 units SC ACHS FREDDIE Stop: 06/09/22 05:59 Last Admin: 05/11/22 08:45 Dose: 1 units Documented by: Insulin Glargine (Lantus Per Unit Charge) 5 units SQ HS [facility] Stop: 06/08/22 02:54 Last Admin: 05/10/22 20:50 Dose: 5 units Documented by: Miscellaneous (Carbohydrates For Hypoglycemia ) 15 - 30 gm PO UD PRN PRN Reason: Hypoglycemia Protocol Stop: 06/08/22 03:49 Naloxone HCl (Naloxone Hcl 0.4 Mg/1 Ml Vial/Carp) 0.1 mg IV UD PRN PRN Reason: Opiate Overdose Stop: 06/08/22 03:49 Nitroglycerin (Nitroglycerin Sl 0.4 Mg/Tab Tab) 0.4 mg SL Q5M PRN PRN Reason: Chest Pain Stop: 06/09/22 11:36 Oxybutynin Chloride (Oxybutynin Chloride 5 Mg Tab) 5 mg PO BID [facility] Stop: 06/08/22 08:59 Last Admin: 05/11/22 08:41 Dose: 5 mg Documented by: Oxycodone HCl (Oxycodone Hcl Ir 5 Mg Tab (Immediate Release)) 5 mg PO Q4H PRN PRN Reason: Pain Stop: 05/23/22 02:17 Last Admin: 05/11/22 02:54 Dose: 5 mg Documented by: Polyethylene Glycol (Polyethylene (Miralax) 17 Gm Pack) 17 gm PO Q6 [facility] Stop: 06/11/22 11:59 Sertraline HCl (Sertraline Hcl 50 Mg Tablet) 50 mg PO QAM [facility] Stop: 06/08/22 08:59 Last Admin: 05/11/22 08:42 Dose: 50 mg Documented by: Sodium Biphosphate/Sodium Phosphate (Sod Phosphate/Sod Biphosphate Enema 132 Ml Btl) 132 ml MN DAILY PRN PRN Reason: Constipation Stop: 06/09/22 11:01 Ticagrelor (Ticagrelor 90 Mg Tab) 90 mg PO BID [facility] Stop: 06/10/22 08:59 Last Admin: 05/11/22 08:42 Dose: 90 mg Documented by: Vitamin D (Cholecalciferol 1,000 Units 25 Mcg Tab) 1,000 units PO QAM [facility] Stop: 06/10/22 08:59 Last Admin: 05/11/22 08:42 Dose: 1,000 units Documented by: (1) Intertrochanteric fracture of left femur Encounter type: initial encounter Fracture alignment: nondisplaced Fracture type: closed Qualified Code(s): S72.145A - Nondisplaced intertrochanteric fracture of left femur, initial encounter for closed fracture
[2022-05-11] MEDS ORDERED: ERGOCALCIFEROL 50,000 UNITS 1250 MCG CAP PO SCH (10:45)
--- NOTE | 2022-05-11 10:45 | Cardiology Progress Note ---
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 Brilinta restarted, however, aspirin remains on hold. Continue DVT prophylaxis with subcutaneous Lovenox. Continue beta-frank and statin therapy. Follow CBC daily. Consider restart aspirin at discharge. Admission and Anticipated Discharge Date Admission Date: May 09, 2022 Subjective Patient seen examined the bedside. Denies chest pain or shortness of breath. Orthopedic surgery performed without complication. Continues to note left-sided hip discomfort. Fair pain control noted. Tolerating current medications. Brilinta restarted, however, appears aspirin remains on hold. Review of Systems Review of Systems: All systems reviewed & are unremarkable except as noted in Subjective Physical Exam Constitutional: well nourished; no acute distress and not ill appearing Respiratory: no respiratory distress, no labored breathing and no retractions Auscultation: no crackles, no rales, no rhonchi and no wheezes Cardiovascular: Rate/Rhythm: regular rate and regular rhythm Heart Sounds: normal S1, normal S2 and + murmur (2/6 NELLA) Extremities: no edema Gastrointestinal (Abdomen): Inspection/Auscultation: abdomen not distended, + abnormal bowel sounds and no abdominal edema Percussion/Palpation: abdomen soft; abdomen nontender and no guarding Neurologic: CN's II-XI intact bilaterally; no focal motor deficits Psychiatric: A+Ox3, euthymic affect Results & Data ([facility]) Vital Signs (Past 12 Hours) Vital Signs Temp Pulse Pulse Resp BP BP Pulse Ox 05/11/22 08:22 37.1 C 97 H 18 119/72 100 05/11/22 06:10 72 05/11/22 02:56 36.8 C 80 20 115/55 L 93 05/11/22 02:53 113/63 05/10/22 22:52 36.8 C 58 L 20 107/64 95 (1) Intertrochanteric fracture of left femur Encounter type: initial encounter Fracture alignment: nondisplaced Fracture type: closed Qualified Code(s): S72.145A - Nondisplaced intertrochanteric fracture of left femur, initial encounter for closed fracture
[2022-05-11] MEDS: ACETAMINOPHEN 325 MG TAB PO PRN ×2 (12:14→21:51)
--- NOTE | 2022-05-11 12:42 | Operative Report (OR) ---
DATE OF PROCEDURE: 05/10/2022 PREOPERATIVE DIAGNOSIS: Left angulated, comminuted intertrochanteric hip fracture. POSTOPERATIVE DIAGNOSIS: Left angulated, comminuted intertrochanteric hip fracture PROCEDURE: Open reduction and internal fixation of left angulated, comminuted intertrochanteric hip fracture with a Synthes trochanteric fixation nail, 11 mm x 130 degrees x 235 mm, 11 x 95 mm helical blade, 5 x 38 mm locking screw, left. SURGEON: Kev Coleman DO. PNEUDRAULIC SYSTEMS MECHANIC: Milagro Shaw PA-C ANESTHESIA: General. SPECIMENS: None. DRAINS: None. COMPLICATIONS: None. BLOOD LOSS: 90 mL PERTINENT HISTORY: This is a 77-year-old female who sustained a mechanical fall while at a baseball game trying to avoid a pop fly. The patient tripped and fell on her left hip causing mechanical frac ture of her left hip. She was transported to [facility] where she was evaluated. Radiographs were obtained. She was admitted to the hospitalist service, optimized for surgery and cl eared for surgery and scheduled for surgery as indicated. All potential risks, benefits, complications, alternatives, rehab potential for incomplete relief of symptoms, need for further surgery, DVT, PE, , persistent pain, swelling, scarring, weakness, ne urovascular injury, wound complications, hardware failure, nonunion, malunion, bone fracture were dis cussed with the patient. The patient decided to proceed with procedure as indicated. PROCEDURE: The patient was transferred to the operative suite. The proper site was identified. The co nsent was reviewed, the patient was then administered sedation and spinal anesthetic. Once appropriat e, the patient then transferred to the fracture table where the lower extremity was placed in fractur e table traction and the nonoperative leg was placed in the well leg alanis. All bony prominences wer e properly padded and protected. The padded post was placed in the peroneal and the patient was posit ioned appropriately. Next the left leg was placed on traction and reduction of the fracture was perfo rmed under fluoroscopic control. Next the operative hip was then sterilely prepped and draped in the usual fashion. Next a 10-blade scalpel incision was used to make an incision proximal to the greater trochanter. The incision was deep in the subcutaneous tissue and fascia and the tip of the greater tr ochanter was then palpated followed by placement of a guide pin under fluoroscopic control driven int o the greater trochanter down to the level of the less trochanter. This was confirmed in AP and later al projections followed by placement of the proximal reamer over the cannulated guide pin. Next the r eamer was then removed using the soft tissue protector, which was also removed. Next the ball tip mark de tanya was placed into the proximal femur under fluoroscopic control confirmed with AP and lateral fl uoroscope projections. Next the trochanteric nail was then passed over the guide tanya into the femur, the guide tanya was removed and then under fluoroscopic control appropriate level of the femoral nail w as then placed in AP projections. Next the targeting device was then fixed to the driving handle and 10-blade scalpel incision was made in the lateral aspect of the thigh. Next the tissue protector and cannulated guide system was then passed into the soft tissue until it was securely fixed against a la teral aspect of the femoral cortex. This was also confirmed under C-arm. Next the guide pin for the h elical blade was driven into the lateral aspect of the femur confirming this with AP lateral projecti ons until the guide pin was in the center of the femoral neck and head approximately 5 mm from the valentine bcortical bone of the femur. Next the helical blade was then measured and then the lateral cortex was then drilled with the cortex reamer followed by use of the triple reamer with the depth stop set at appropriate depth. In this case a 11 x 95 mm helical blade was then inserted over the cannulated guid e tanya under fluoroscopic control. This was seated appropriately then traction was reduced from the mb and the fracture was then gently compressed and then locked proximally with the flexible screwdriv er. Next the helical blade was then disengaged from its insertion handle, insertion handle was then r emoved and the guide pin was removed from the femoral neck and head. Next the lateral targeting arm w as used to insert the distal locking screw. First a 10-blade scalpel incision was made in the lateral aspect of the thigh, captured drill sleeves were then tamped gently to the lateral aspect of the fem oral cortex then the locking screw hole was then drilled, measured and then an appropriate length scr ew was placed to lock the distal aspect of the nail. Next targeting sleeves were then removed. The in sertion arm was then removed from the nail and final x-rays were obtained in AP and lateral projectio ns. All incisions were then copiously irrigated with sterile normal saline. The proximal gluteus fasc ia was then closed using interrupted #1 Vicryl, the dermis was closed using buried interrupted 2-0 Vi cryl sutures in all three incisions and the skin was then closed using skin pawel. A sterile compre ssive dressing consisting of Xeroform gauze, sterile 4 x 4's and Tegaderm was applied. The patient wa s then awakened and taken to recovery in stable condition. Job ID: [id number]
--- NOTE | 2022-05-11 17:40 | Orthopedic Progress Note ---
Date of Service May 11, 2022 Assessment & Plan (1) Intertrochanteric fracture of left femur: Plan: Postop day 1 status post left TFN PT/OT protocols. Toe-touch weightbearing. DVT prophylaxis-enoxaparin daily, Shaun, GILLES smith. Pain management as written. DC planning-patient is agreeable [facility] custodial facility. Admission and Anticipated Discharge Date Admission Date: May 09, 2022 Subjective Postop day 1 Patient sitting up in her bed eating her dinner. Family is present. She states that getting out of bed this morning was a little rough. She is doing better this afternoon. Pain is controlled at this time. She was having a little bit of nausea. She states she does not have much of an appetite at this time. We discussed that it could be secondary to medications and also her lack of activity and fasting that went along with prior to surgery. No other complaints at this time. Physical Exam Physical Exam: Dressings are clean, dry, and intact. Thigh has some mild swelling but is soft and nontender. Calves are soft nontender. Neurovascular is intact. Toes are mobile. She has good dorsiflexion and plantarflexion of the left foot. Results & Data ([facility]) Vital Signs (Past 12 Hours) Vital Signs Temp Pulse Pulse Resp BP BP Pulse Ox 05/11/22 16:25 37.0 C 79 20 175/56 H 93 05/11/22 14:19 75 05/11/22 11:45 36.8 C 72 20 120/68 97 05/11/22 08:22 37.1 C 97 H 18 119/72 100 05/11/22 06:10 72 Laboratory Results 05/11/22 05/11/22 05/11/22 Range/Units 16:53 11:59 07:58 WBC (4.8-10.8) K/ul RBC (3.93-5.22) M/uL Hgb (12.0-16.0) g/dl Hct (34.1-44.9) % MCV (80.0-100.0) fL MCH (25.0-34.0) pg MCHC (32.0-36.0) g/dL RDW Std Deviation (36.4-46.3) fL RDW Coeff of [place] (11.5-14.5) % Plt Count (130-400) K/uL MPV (9.4-12.3) fL Immature Gran % (Auto) % Neut % (Auto) % Lymph % (Auto) % [place] % (Auto) % Eos % (Auto) % Baso % (Auto) % Neut # (Auto) (1.4-6.5) K/uL Lymph # (Auto) (1.2-3.4) K/uL [place] # (Auto) (0.24-0.82) K/uL Eos # (Auto) (0-0.50) K/uL Baso # (Auto) (0-0.2) K/uL Immature Gran # (Auto) (0.00-0.02) K/uL Sodium (136-145) mmol/L Potassium (3.5-5.1) mmol/L Chloride (98-107) mmol/L Carbon Dioxide (21-32) mmol/L Anion Gap (3-11) BUN (6-23) mg/dl Creatinine (0.6-1.2) mg/dl Est Cr Clr Drug Dosing ml/min Est GFR ( Amer) ml/min Est GFR (Non-Af Amer) ml/min BUN/Creatinine Ratio (10-20) Glucose (70-99(Fasting)) mg/dl POC Glucose 157 H 190 H (70-99) mg/dl Calcium (8.5-10.1) mg/dl 25-OH Vitamin D Total 19.0 L (30-100) ng/ml 05/11/22 05/11/22 05/11/22 Range/Units 07:58 07:58 07:57 WBC 11.16 H (4.8-10.8) K/ul RBC 3.21 L (3.93-5.22) M/uL Hgb 9.7 L (12.0-16.0) g/dl Hct 28.8 L (34.1-44.9) % MCV 89.7 (80.0-100.0) fL MCH 30.2 (25.0-34.0) pg MCHC 33.7 (32.0-36.0) g/dL RDW Std Deviation 42.9 (36.4-46.3) fL RDW Coeff of [place] 13.0 (11.5-14.5) % Plt Count 159 (130-400) K/uL MPV 10.2 (9.4-12.3) fL Immature Gran % (Auto) 0.4 % Neut % (Auto) 70.5 % Lymph % (Auto) 15.7 % [place] % (Auto) 12.5 % Eos % (Auto) 0.5 % Baso % (Auto) 0.4 % Neut # (Auto) 7.86 H (1.4-6.5) K/uL Lymph # (Auto) 1.75 (1.2-3.4) K/uL [place] # (Auto) 1.40 H (0.24-0.82) K/uL Eos # (Auto) 0.06 (0-0.50) K/uL Baso # (Auto) 0.04 (0-0.2) K/uL Immature Gran # (Auto) 0.05 H (0.00-0.02) K/uL Sodium 130 L (136-145) mmol/L Potassium 4.3 (3.5-5.1) mmol/L Chloride 99 (98-107) mmol/L Carbon Dioxide 24 (21-32) mmol/L Anion Gap 7 (3-11) BUN 22 (6-23) mg/dl Creatinine 0.94 (0.6-1.2) mg/dl Est Cr Clr Drug Dosing 47.6 ml/min Est GFR ( Amer) 67.8 ml/min Est GFR (Non-Af Amer) 58.5 ml/min BUN/Creatinine Ratio 23.4 H (10-20) Glucose 155 H (70-99(Fasting)) mg/dl POC Glucose 150 H (70-99) mg/dl Calcium 8.6 (8.5-10.1) mg/dl 25-OH Vitamin D Total (30-100) ng/ml 05/10/22 Range/Units 20:25 WBC (4.8-10.8) K/ul RBC (3.93-5.22) M/uL Hgb (12.0-16.0) g/dl Hct (34.1-44.9) % MCV (80.0-100.0) fL MCH (25.0-34.0) pg MCHC (32.0-36.0) g/dL RDW Std Deviation (36.4-46.3) fL RDW Coeff of [place] (11.5-14.5) % Plt Count (130-400) K/uL MPV (9.4-12.3) fL Immature Gran % (Auto) % Neut % (Auto) % Lymph % (Auto) % [place] % (Auto) % Eos % (Auto) % Baso % (Auto) % Neut # (Auto) (1.4-6.5) K/uL Lymph # (Auto) (1.2-3.4) K/uL [place] # (Auto) (0.24-0.82) K/uL Eos # (Auto) (0-0.50) K/uL Baso # (Auto) (0-0.2) K/uL Immature Gran # (Auto) (0.00-0.02) K/uL Sodium (136-145) mmol/L Potassium (3.5-5.1) mmol/L Chloride (98-107) mmol/L Carbon Dioxide (21-32) mmol/L Anion Gap (3-11) BUN (6-23) mg/dl Creatinine (0.6-1.2) mg/dl Est Cr Clr Drug Dosing ml/min Est GFR ( Amer) ml/min Est GFR (Non-Af Amer) ml/min BUN/Creatinine Ratio (10-20) Glucose (70-99(Fasting)) mg/dl POC Glucose 179 H (70-99) mg/dl Calcium (8.5-10.1) mg/dl 25-OH Vitamin D Total (30-100) ng/ml (1) Intertrochanteric fracture of left femur Encounter type: initial encounter Fracture alignment: nondisplaced Fracture type: closed Qualified Code(s): S72.145A - Nondisplaced intertrochanteric fracture of left femur, initial encounter for closed fracture
[2022-05-11] MEDS: LANTUS PER UNIT CHARGE SQ SCH (21:44)
[2022-05-11] MEDS: ATORVASTATIN 20 MG TAB PO SCH (21:44)
[2022-05-12] MEDS: carvediloL 6.25 MG TAB PO SCH (08:55)
[2022-05-12] MEDS: CYANOCOBALAMIN (B-12) 500 MCG TABLET PO SCH (08:56)
[2022-05-12] MEDS: CHOLECALCIFEROL 1,000 UNITS 25 MCG TAB PO SCH (08:56)
[2022-05-12] MEDS: TICAGRELOR 90 MG TAB PO SCH (08:56)
[2022-05-12] MEDS: ENOXAPARIN INJ 40 MG/0.4 ML SYR SQ SCH (08:56)
[2022-05-12] MEDS: OXYBUTYNIN CHLORIDE 5 MG TAB PO SCH (08:56)
[2022-05-12] MEDS: SERTRALINE HCL 50 MG TABLET PO SCH (08:56)
[2022-05-12] MEDS: INSULIN ASPART PER UNIT SC SCH ×2 (09:01→12:16)
--- NOTE | 2022-05-12 11:14 | Orthopedic Progress Note ---
Date of Service May 12, 2022 Assessment & Plan (1) Intertrochanteric fracture of left femur: Plan: Postop day 2 status post left TFN PT/OT protocols. Toe-touch weightbearing. DVT prophylaxis-enoxaparin daily, SCDmadeleine, GILLES smith. Pain management as written. DC planning-from an orthopedic standpoint, the patient is able to be discharged today. She will follow-up with Dr. Coleman's clinic approximately 2 weeks postop. Admission and Anticipated Discharge Date Admission Date: May 09, 2022 Subjective Postop day 2 Patient is doing well. States the left hip is sore but overall the pain is controlled. She is done physical therapy 3 separate times. They feel she is doing well. States she has a preference of going to upon discharge. Physical Exam Constitutional: WD/WN, vitals as above no acute distress Neck: trachea midline Musculoskeletal: Hip: + surgical incision (Left hip: Dressing C/D/I); no skin erythema, no ecchymosis and no surgical drain present Skin: no rashes, warm and dry Trauma: no evidence of skin trauma Neurologic: normal touch/pain/proprioception Psychiatric: A+Ox3, euthymic affect Speech: normal rate/rhythm/volume of speech Results & Data ([facility]) Vital Signs (Past 12 Hours) Vital Signs Temp Pulse Pulse Resp BP BP Pulse Ox 05/12/22 10:00 05/12/22 08:28 36.8 C 92 H 20 121/74 96 05/12/22 06:29 05/12/22 06:14 85 05/12/22 03:30 37 C 84 18 159/79 H 96 05/12/22 00:34 Pulse Ox 05/12/22 10:00 95 05/12/22 08:28 05/12/22 06:29 94 05/12/22 06:14 05/12/22 03:30 05/12/22 00:34 94 (1) Intertrochanteric fracture of left femur Encounter type: initial encounter Fracture alignment: nondisplaced Fracture type: closed Qualified Code(s): S72.145A - Nondisplaced intertrochanteric fracture of left femur, initial encounter for closed fracture
[2022-05-12] MEDS: ACETAMINOPHEN 325 MG TAB PO PRN (11:40)
[2022-05-12] MEDS ORDERED: POLYETHYLENE (MIRALAX) 17 GM PACK PO SCH (12:00)
[2022-05-12 13:46] LABS: BUN Creatinine Ratio 21.7 (10-20); Calcium 8.3 mg/dl (8.5-10.1); Creatinine Clr Calc Pharmacy 48.6 ml/min; Est GFR (African American) 69.6 ml/min; Est GFR (Non-African American) 60.1 ml/min
[2022-05-12] MEDS ORDERED: SODIUM CHLORIDE 1 GM TABLET PO SCH (14:15)
--- NOTE | 2022-05-12 14:45 | Discharge Summary ---
Date of Service May 12, 2022 Admission HPI Per Admitting Provider History obtained from patient, family, and records. Medical history significant for CAD status post CABG (1998) status post stent (2009), PVD status post surgery, hypertension, hyperlipidemia, history TIA currently on aspirin and Brilinta, DM2 insulin requiring, past tobacco abuse. Patient fell down yesterday trying to avoid a baseball coming her way at a community again. Patient subsequently landed on her left hip. Excruciating left hip pain. Unable to get up. No head trauma, no syncope, no chest pain, no unusual SOB. Patient brought to the ER for evaluation. SBP 90s at some point during ER stay. Medical History as above Exertional shortness of breath symptoms for about 6 months which prompted outpatient nuclear stress test by her [facility] washer cutter (Dr. Falcon) April 2022. Medical management recommended as per patient. Paraprofessional Aide Teacher attributed shortness of breath to Brilinta and recommended replacing Brilinta with NOAC as per patient account. Patient hesitant to follow recommendation until she was able to check with her neurologist who had her on dual antiplatelet Rx following TIA 2019. Surgical History : CABG, knee surgeries, hysterectomy, cholecystectomy, vascular procedure Family History : Heart disease Personal/Social history : Past tobacco abuse, no EtOH intake, retired [employer] employee Admission Exam Per Admitting Provider GENERAL: Comfortable, pleasant, obese, no respiratory distress SKIN: Pallor, warm HEENT: Pale palpebral conjunctivae, no ptosis, dry buccal mucosa NECK : Supple, short neck, no tenderness CHEST : CTA, no tenderness HEART : RRR, systolic murmur best heard over left sternal border ABDOMEN: Some distention, nontender EXTREMITIES : Minimal LE swelling, rotated left hip with tenderness NEUROLOGIC : Coherent, no facial asymmetry, no other gross focality Principal Diagnosis Left femur intertrochanteric fracture after mechanical fall status post ORIF by Dr. Coleman 05/10/22 Mild hyponatremia likely secondary to decreased dietary intake Discharge Exam General: sitting up comfortably in chair, not in distress, on NC HEENT: EOMI, MEGHA, MMM Chest: Clear breath sounds bilaterally, no wheezes or crackles CVS: Regular rate and rhythm, normal heart sounds, no murmur Abdomen: Soft, non tender, not distended, normal bowel sounds Neuro: Awake, alert, oriented, conversing well Extremities: Left hip incision site clean dry intact w/ clean overlying dressing. Discharge Data Allergies Allergy/AdvReac Type Severity Reaction Status Date / Time pollen extracts Allergy Mild Sneezing Verified 05/08/22 23:22 Consultations 05/09/22 00:13 ED Decision to Admit Stat 05/09/22 03:05 Consult Orthopedic Surgery Routine 05/09/22 08:59 Consult Cardiology Routine Procedures Performed Operation Date: 05/10/22 10:00 Actual Procedures p Open reduction internal fixation left Intertrochanteric hip fracture (Left) - Kev Coleman, Ordered Studies 05/10/22 FL hip LT 2-3V Routine Hospital Course (1) Intertrochanteric fracture of left femur: 77 year old female who presented to the ED 05/08 after mechanical fall sustaining left hip fracture. She was at a baseball game and fell down on left side while trying to get out of the way. She was being managed for the following: #. Left femur intertrochanteric fracture after mechanical fall- s/p ORIF today by Dr Coleman 05/10/22 - continue pain management, PT, bowel regimen. Patient being discharged few days worth of pain medication, patient to follow-up with PCP for further evaluation and prescription for pain management. - Discussed with Ortho, okay to resume aspirin, patient to be discharged on Lovenox for 4 weeks for DVT prophylaxis. Procedure 05/10/22: Open reduction internal fixation left angulated, comminuted intertrochanteric hip fracture with Synthes trochanteric fixation nail 11 mm x 130 degrees x 235 mm, 11.0 mm x 95 mm helical blade, 5 x 38 mm locking screw. DM-2- A1c 7.8. Continue lantus, SSI H/o TIA 2019- on ASA, brilinta, statin as OP. Will resume antiplatelet when okay per ortho h/o CAD s/p CABG 1998 and stenting 2009- No Chest pain. Had RUVALCABA and had stress test with her OP cardio 3 weeks back, said to be stable. Seen by cardio preop. Leucocytosis- likely reactive. Hypomagnesemia- resolved Low B12 level- started on po supplementation Vit D deficiency- started on oral supplementation. Hyponatremia- Na 133->130->129. Likely secondary to decreased dietary intake. Per RN, appetite getting better. Patient being discharged on sodium tablet, patient to follow-up with PCP for CBC and CMP in 3 to 5 days upon discharge and further evaluation at that point in time. DVT ppx- sc lovenox for 4 weeks. Patient being discharged to [facility] with following instruction at the point of discharge: Follow-up with your primary care physician within a week time. Follow-up with your orthopedics in 2 weeks time from your hip repair [05/10/2022]. Your antiplatelets Brilinta and aspirin will be resumed. You will be on DVT prophylaxis with Lovenox 40 mg SQ daily for 4 weeks per orthopedics recommendation. For your mild hyponatremia, likely secondary to decreased dietary intake, you will be discharged on sodium tablets for a week time, you will need your repeat blood work CBC and CMP done in 3 to 5 days upon discharge and have yourself evaluated by a doctor/PCP for further recommendations/evaluation for your hyponatremia. I expect it to improve with your improving dietary intake. You will be discharged on 5 days worth of pain medication, if you need more pain medication, you will need evaluation by your PCP for further manageme nt/evaluation/prescription of pain meds. Take your medications as prescribed. Total Time Total Time Spent Total Time Spent (In Minutes): 40 Discharge Plan Discharge Items Patient Disposition: Transfer Inpatient Rehab Fac Reason For Visit: HYPOTENSION, L HIP FX Discharge Diagnosis: Left femur intertrochanteric fracture after mechanical fall status post ORIF by Dr. Coleman 05/10/22 Mild hyponatremia likely secondary to decreased dietary intake Activity: As commented below Weightbearing: Left toe touch Non-emergency contact: Primary Care Provider Call non-emergency contact if: you have any medication questions, your symptoms worsen, your pain is not controlled and your temperature is above 101 Follow-up/Referrals: Kev Coleman DO [Surgeon] - Don Alaniz M.D. [Primary Care Provider] - Diet: Carb Consistent or DM2 and Heart Healthy Addtl Attending Provider Instructions: Follow-up with your primary care physician within a week time. Follow-up with your orthopedics in 2 weeks time from your hip repair [05/10/2022]. Your antiplatelets Brilinta and aspirin will be resumed. You will be on DVT prophylaxis with Lovenox 40 mg SQ daily for 4 weeks per orthopedics recommendation. For your mild hyponatremia, likely secondary to decreased dietary intake, you will be discharged on sodium tablets for a week time, you will need your repeat blood work CBC and CMP done in 3 to 5 days upon discharge and have yourself evaluated by a doctor/PCP for further recommendations/evaluation for your hyponatremia. I expect it to improve with your improving dietary intake. You will be discharged on 5 days worth of pain medication, if you need more pain medication, you will need evaluation by your PCP for further management/evaluation/prescription of pain meds. Take your medications as prescribed. 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 You are to ambulate with a walker or crutches for approximately 6 weeks. B. You are TOE TOUCH WEIGHT BEARING on your operative lower extremity for at least 6 weeks. C. Wear low heeled shoes with non-slip soles D. Be sure that your floors are free of things that could trip you throw rugs, electrical cords, and small objects. Avoid wet and waxed floors, especially with crutches/walker/cane. E. Try to walk several times a day with rest periods between. F. You may shower 48 hours after surgery and get the incision area wet, but DO NOT soak or submerge incision area in water. (No baths, swimming pools, hot tubs) G. You may have a large, band-aid like dressing over your incision (Aquacel). This will remain on your incision for 7 days, and then can be removed. You CAN shower with this on. If incision is leaking through the dressing, please call the office . H. Do NOT apply soap or any ointment/lotions directly over incision. I. You may use ice as needed to operative site. SPECIAL CARE INSTRUCTIONS: VERY IMPORTANT TO READ AND REVIEW A. You may be at risk for phlebitis or blood clots. a. Wear surgical stockings (GILLES hose) for 2 weeks after surgery to improve circulation and reduce swelling. b. Take LOVENOX 40mg SQ daily for 4 weeks or as directed. This is your blood thinner. c. If you are on Coumadin- you will have daily/weekly blood work to monitor your levels. This will be done by either your family physician/washer cutter (if you are on Coumadin chronically) versus your orthopedic surgeon. Expect a phone call the day of or the day after your blood work is drawn to adjust your dose accordingly. B. There are a few signs you need to watch for after you are home. Call [facility] at [phone] if you experience any of the following: a. If you have a temperature of 101 degrees or higher. b. Sudden increase in pain in your hip not relieved by rest or pain medication. c. Any fluid or drainage from the incision; redness of the incision. d. Shortness of breath or chest pain. B. Please call [facility] at [phone] if you have any questions or concerns about your operation or recovery. C. Call your physician if: a. Temperature is greater than 101 degrees (F). b. Pain is not relieved by prescribed pain medications. c. Increase drainage or redness from incision. d. Unanswered questions or concerns. D. Pain Medication: a. You will be prescribed pain medication upon discharge that should last till your first post-operative appointment. b. If you experience nausea and/or skin rash, discontinue this medication and contact our office for an alternative medication. c. Caution- narcotic pain medication can cause constipation. FOLLOW UP VISIT: Please call [facility] at [phone] to schedule a follow up appointment 10-14 days from the date of your surgery date. Pending Studies at Discharge: No Stand-Alone Forms: My [facility] Skilled Items Patient informed of condition?: Yes DNR: No Discharge Level of Care: Acute rehab Communicable Disease: No Discharge Prognosis: Stable Lines: None Urinary Catheter: No Medications and DC Order Prescriptions: New enoxaparin [Lovenox] 40 mg/0.4 mL Syringe 40 mg subcut QAM 28 Days Qty: 11.2 RF: 0 acetaminophen 325 mg Tablet 650 mg PO Q6H PRN (Reason: fever or pain) Qty: 60 RF: 0 oxycodone 5 mg Tablet 5 mg PO TID PRN (Reason: severe pain (scale score 7-10)) 5 Days Qty: 15 RF: 0 sodium chloride 1 gram Tablet 1 g PO BID 7 Days Qty: 14 RF: 0 polyethylene glycol 3350 [Miralax] 17 gram Powder In Packet 17 g PO DAILY PRN (Reason: constipation) Qty: 14 RF: 0 cyanocobalamin (vitamin B-12) 500 mcg Tablet 500 mcg PO QAM 30 Days Qty: 30 RF: 0 ergocalciferol (vitamin D2) 1,250 mcg (50,000 unit) Capsule 50,000 unit PO Q7D Qty: 4 RF: 0 Continued isosorbide mononitrate 60 mg tablet extended release 24 hr 60 mg PO QAM RF: 0 oxybutynin chloride 5 mg tablet 5 mg PO BID RF: 0 Toujeo Max U-300 SoloStar 300 unit/mL (3 mL) insulin pen 20 unit SUBCUT HS RF: 0 insulin lispro [Humalog KwikPen Insulin] 100 unit/mL insulin pen 4 unit SUBCUT WM RF: 0 carvedilol 6.25 mg tablet 6.25 mg PO BID RF: 0 amlodipine 10 mg tablet 10 mg PO QAM RF: 0 irbesartan 300 mg tablet 300 mg PO QAM RF: 0 nitroglycerin 0.4 mg tablet, sublingual 0.4 mg sublingual .Q 5 MINUTES PRN (Reason: Chest Pain) RF: 0 sertraline 50 mg tablet 50 mg PO QAM RF: 0 Brilinta 90 mg tablet 90 mg PO BID RF: 0 atorvastatin 20 mg Tablet 20 mg PO HS RF: 0 aspirin [Aspirin Low-Strength] 81 mg Tablet,Delayed Release (Dr/Ec) 81 mg PO QAM RF: 0 docusate sodium [Colace] 100 mg Capsule 100 mg PO BID PRN (Reason: Constipation) RF: 0 cholecalciferol (vitamin D3) [Vitamin D3] 25 mcg (1,000 unit) Tablet 25 mcg PO QAM RF: 0 Discharge Orders: Discharge Order (Routine); Ordered 05/12/22 Ordered By: Brittany Wells/Other Patient Handouts: Managing Type 2 Diabetes Admission Data Admit Date/Time: 05/09/22 02:46 Attending Provider: Brittany Cabral Admit Provider: Kvng Ash Primary Care Provider: Don Alaniz Other Providers: Kvng Ash ; Phu Santiago ; Kev Coleman ; Quinton Corea ; Lauren Bland Thomas J ; Milagro Escobar ; Jose Joseph ; Gary Fonseca ; Tucker Ahn ; Tonny Penn. ; Madi Perez ; Cristhian Ortez ; Fransico Beebe ; Bill Belcher ; Milagro Shaw ; Andres Hugo ; Sulma Murrell ; Bertrand Helm ; Roro Martinez ; Vasu Faulkner ; Sumit Zepeda ; [facility]
--- NOTE | 2022-05-12 15:45 | Cardiology Progress Note ---
Date of Service May 12, 2022 Assessment & Plan (1) CAD (coronary artery disease), [place] coronary artery: (2) Old [place] (myocardial infarction): (3) PVD (peripheral vascular disease): (4) Preop cardiovascular exam: (5) Abnormal ECG: (6) Intertrochanteric fracture of left femur: Plan: Orthopedic surgery performed without complication. No further inpatient cardiac testing or intervention. Restart aspirin at discharge. Continue DVT prophylaxis with subcutaneous Lovenox. Continue beta-frank and statin therapy. Cardiology will sign off. Please call with questions. Admission and Anticipated Discharge Date Admission Date: May 09, 2022 Subjective Patient seen examined the bedside. Denies chest pain or shortness of breath. No palpitations lightheadedness or dizziness. Denies orthopnea or PND. Hip pain improving. present at bedside. Offers no new concerns/complaints. Review of Systems Review of Systems: All systems reviewed & are unremarkable except as noted in Subjective Physical Exam Constitutional: well nourished; no acute distress and not ill appearing Respiratory: no respiratory distress, no labored breathing and no retractions Auscultation: no crackles, no rales, no rhonchi and no wheezes Cardiovascular: Rate/Rhythm: regular rate and regular rhythm Heart Sounds: normal S1, normal S2 and + murmur (2/6 NELLA) Extremities: no edema Gastrointestinal (Abdomen): Inspection/Auscultation: abdomen not distended, + abnormal bowel sounds and no abdominal edema Percussion/Palpation: abdomen soft; abdomen nontender and no guarding Neurologic: CN's II-XI intact bilaterally; no focal motor deficits Psychiatric: A+Ox3, euthymic affect Results & Data ([facility]) Vital Signs (Past 12 Hours) Vital Signs Temp Pulse Pulse Pulse Resp BP BP 05/12/22 14:56 36.7 C 68 71 16 136/62 121/74 05/12/22 11:36 36.7 C 71 16 136/62 05/12/22 10:00 05/12/22 08:28 36.8 C 92 H 20 121/74 05/12/22 06:29 05/12/22 06:14 85 Pulse Ox Pulse Ox 05/12/22 14:56 96 05/12/22 11:36 96 05/12/22 10:00 95 05/12/22 08:28 96 05/12/22 06:29 94 07/12/22 06:14 (1) Intertrochanteric fracture of left femur Encounter type: initial encounter Fracture alignment: nondisplaced Fracture type: closed Qualified Code(s): S72.145A - Nondisplaced intertrochanteric fracture of left femur, initial encounter for closed fracture
== END 2022-05-12 17:18 | DRG 481 ==
LOC: ED 22:39 → 2N 05-09 02:46 → SUATTDRO 05-09 02:46 → 2N 05-09 03:47
DX: E87.1 Hypo-osmolality and hyponatremia; Z90.49 Acquired absence of other specified parts of digestive tract; S72.142A Displaced intertrochanteric fracture of left femur, initial encounter for closed fracture; E53.8 Deficiency of other specified B group vitamins; Z87.891 Personal history of nicotine dependence; Z82.49 Family history of ischemic heart disease and other diseases of the circulatory system; E83.42 Hypomagnesemia; Z86.73 Personal history of transient ischemic attack (TIA), and cerebral infarction without residual deficits; R01.1 Cardiac murmur, unspecified; W19.XXXA Unspecified fall, initial encounter; E78.5 Hyperlipidemia, unspecified; I73.9 Peripheral vascular disease, unspecified; D72.829 Elevated white blood cell count, unspecified; I95.9 Hypotension, unspecified; Z79.02 Long term (current) use of antithrombotics/antiplatelets; Z95.1 Presence of aortocoronary bypass graft; E11.51 Type 2 diabetes mellitus with diabetic peripheral angiopathy without gangrene; N17.9 Acute kidney failure, unspecified; D64.9 Anemia, unspecified; Z79.4 Long term (current) use of insulin; I25.2 Old myocardial infarction; Z79.82 Long term (current) use of aspirin

== ENCOUNTER 2022-05-20 19:28 | Inpatient (IN) ==
[2022-05-20] MEDS ORDERED: NITROGLYCERIN SL 0.4 MG/TAB TAB SL STA (19:43)
[2022-05-20] MEDS ORDERED: ONDANSETRON INJ 2 MG/ML 2 ML VIAL IV STA (19:43)
[2022-05-20] MEDS ORDERED: SODIUM CHLORIDE 0.9% 500 ML IV STA (19:43)
--- NOTE | 2022-05-20 19:49 | Emergency Department Note ---
History of Present Illness General Chief complaint: Chest Pain Stated complaint: CHEST PAIN Time Seen by Provider: 05/20/22 19:32 Source: patient and EMS Mode of arrival: EMS Limitations: no limitations History of Present Illness She is a 77-year-old female comes in after having some chest pain after eating. She said last night she had some left-sided chest pain and burning which lasted an hour to hour and a half and she fell asleep. She was fine until dinner and she ate a small bites and felt like it got stuck in the epigastric area she was able to drink fluids but then it made it worse. She think she is able to swallow she not actively drooling. This have around 545. She feels slightly short of breath she has some nausea. She felt slightly diaphoretic she has had a does have a cardiac history of the bypass 1998 sent in 2009. She is followed by Dr. Falcon in [place]. They gave her nitroglycerin x2 and aspirin on route s he does not think it helped much. She is in [facility] for left hip pain/fracture and she is been there since the Home Medications Medication Instructions Recorded Confirmed Type amlodipine 10 mg tablet 10 mg PO QAM 05/08/22 05/20/22 History aspirin 81 mg tablet,delayed 81 mg PO QA 05/08/22 05/20/22 History release atorvastatin 20 mg tablet 20 mg PO 05/08/22 05/20/22 History carvedilol 6.25 mg tablet 6.25 mg PO BIDM 05/08/22 05/20/22 History cholecalciferol (vitamin D3) 25 25 mcg PO QAM 05/08/22 05/20/22 History mcg (1,000 unit) tablet (Vitamin D3) insulin glargine U-300 conc 300 20 unit subcut 05/08/22 05/21/22 History unit/mL (3 mL) subcutaneous pen (Toujeo Max U-300 SoloStar) insulin lispro 100 unit/mL 0 unit subcut 05/08/22 05/21/22 History subcutaneous pen (Humalog KwikPen (U-100) Insulin) irbesartan 300 mg tablet 300 mg PO QAM 05/08/22 05/20/22 History isosorbide mononitrate 60 mg 60 mg PO QAM 05/08/22 05/20/22 History tablet,extended release 24 hr nitroglycerin 0.4 mg sublingual 0.4 mg sublingual .Q 5 MINUTES PRN 05/08/22 05/20/22 History tablet Chest Pain oxybutynin chloride 5 mg tablet 5 mg PO BID 05/08/22 05/20/22 History sertraline 50 mg tablet 50 mg PO QAM 05/08/22 05/20/22 History ticagrelor 90 mg tablet (Brilinta) 90 mg PO BID 05/08/22 05/21/22 History cyanocobalamin (vitamin B-12) 500 500 mcg PO QAM 30 days #30 tabs 05/12/22 05/20/22 Rx mcg tablet ergocalciferol (vitamin D2) 1,250 50,000 unit PO Q7D #4 caps 05/12/22 05/20/22 Rx mcg (50,000 unit) capsule polyethylene glycol 3350 17 gram 17 g PO DAILY PRN constipation #14 05/12/22 05/20/22 Rx oral powder packet (Miralax) ea enoxaparin 40 mg/0.4 mL 40 mg subcut DAILY 05/20/22 05/20/22 History subcutaneous syringe (Lovenox) sodium chloride 1 gram tablet 1,000 mg PO BID 05/20/22 05/21/22 History insulin glargine 100 unit/mL 12 unit subcut PM 05/21/22 05/21/22 History subcutaneous solution (Lantus U-100 Insulin) lidocaine 5 % topical patch 1 patch topical DAILY 05/21/22 05/21/22 History (Lidoderm) nitrofurantoin 100 mg PO Q12 05/21/22 05/21/22 History monohydrate/macrocrystals 100 mg capsule (Macrobid) oxycodone 5 mg tablet 5 mg PO Q8H PRN Pain 05/21/22 05/21/22 History Allergies Allergy/AdvReac Type Severity Reaction Status Date / Time pollen extracts Allergy Mild Sneezing Verified 05/21/22 00:14 Past Med/Surg History Social History Smoking Status: Unknown if ever smoked Hx Alcohol Use: Yes Alcohol type: wine Hx Substance Use: No Communication Ability: Effective Beliefs That Will Affect Care: None Current Living Situation: Spouse Feels Safe at Home: Yes Assistive Devices: Glasses Immunizations: Past medical historycoronary artery disease. She denies a history of gastr ointestinal disease Review of Systems A total of 10 systems reviewed and were otherwise negative Physical Exam Vital Signs Vital Signs - 24 hr 05/20/22 19:43 05/20/22 19:26 05/20/22 19:54 Temperature 36.6 C Temperature Source Oral Pulse Rate 55 L 58 L 59 L Pulse Rate from SpO2 Sensor 59 L Pulse Rhythm Regular Respiratory Rate 18 24 Respiratory Effort / Characteristics Non-Labored Respiratory Depth Normal Blood Pressure 122/49 L Blood Pressure Mean 73 Pulse Oximetry 92 95 94 Oxygen Delivery Method Room Air Room Air Sepsis Recent Fever Within 48 Hours No Sepsis New/Unexplained Change in Mental Status N/A Sepsis Action Taken by Nursing No Action Required 05/20/22 19:55 05/20/22 19:55 05/20/22 20:00 Temperature Temperature Source Pulse Rate 58 L 57 L Pulse Rate from SpO2 Sensor 57 L 60 Pulse Rhythm Respiratory Rate 20 21 Respiratory Effort / Characteristics Respiratory Depth Blood Pressure 122/49 L Blood Pressure Mean 73 Pulse Oximetry 95 96 Oxygen Delivery Method Sepsis Recent Fever Within 48 Hours Sepsis New/Unexplained Change in Mental Status Sepsis Action Taken by Nursing 05/20/22 20:30 05/20/22 20:31 05/20/22 20:31 Temperature Temperature Source Pulse Rate 61 58 L Pulse Rate from SpO2 Sensor 62 59 L Pulse Rhythm Respiratory Rate 14 20 Respiratory Effort / Characteristics Respiratory Depth Blood Pressure 120/60 Blood Pressure Mean 80 Pulse Oximetry 97 97 Oxygen Delivery Method Sepsis Recent Fever Within 48 Hours Sepsis New/Unexplained Change in Mental Status Sepsis Action Taken by Nursing 05/20/22 21:00 05/20/22 21:00 05/20/22 21:30 Temperature Temperature Source Pulse Rate 57 L Pulse Rate from SpO2 Sensor 57 L Pulse Rhythm Respiratory Rate 23 Respiratory Effort / Characteristics Respiratory Depth Blood Pressure 122/66 140/53 L Blood Pressure Mean 84 82 Pulse Oximetry 97 Oxygen Delivery Method Sepsis Recent Fever Within 48 Hours Sepsis New/Unexplained Change in Mental Status Sepsis Action Taken by Nursing 05/20/22 21:30 05/20/22 22:00 05/20/22 22:00 Temperature Temperature Source Pulse Rate 54 L 70 Pulse Rate from SpO2 Sensor 56 L Pulse Rhythm Respiratory Rate 20 20 Respiratory Effort / Characteristics Respiratory Depth Blood Pressure 135/65 Blood Pressure Mean 88 Pulse Oximetry 96 Oxygen Delivery Method Sepsis Recent Fever Within 48 Hours Sepsis New/Unexplained Change in Mental Status Sepsis Action Taken by Nursing 05/20/22 23:10 05/20/22 23:11 05/20/22 23:11 Temperature Temperature Source Pulse Rate 94 H 72 Pulse Rate from SpO2 Sensor 73 Pulse Rhythm Respiratory Rate 10 L 20 Respiratory Effort / Characteristics Respiratory Depth Blood Pressure 123/64 Blood Pressure Mean 83 Pulse Oximetry 94 Oxygen Delivery Method Sepsis Recent Fever Within 48 Hours Sepsis New/Unexplained Change in Mental Status Sepsis Action Taken by Nursing 05/20/22 23:30 05/20/22 23:30 05/21/22 00:00 Temperature Temperature Source Pulse Rate 80 79 Pulse Rate from SpO2 Sensor 80 80 Pulse Rhythm Respiratory Rate 16 20 Respiratory Effort / Characteristics Respiratory Depth Blood Pressure 140/64 120/69 Blood Pressure Mean 89 86 Pulse Oximetry 98 95 Oxygen Delivery Method Sepsis Recent Fever Within 48 Hours Sepsis New/Unexplained Change in Mental Status Sepsis Action Taken by Nursing 05/21/22 00:30 Temperature Temperature Source Pulse Rate 93 H Pulse Rate from SpO2 Sensor 86 Pulse Rhythm Respiratory Rate 20 Respiratory Effort / Characteristics Respiratory Depth Blood Pressure 99/80 L Blood Pressure Mean 86 Pulse Oximetry 98 Oxygen Delivery Method Sepsis Recent Fever Within 48 Hours Sepsis New/Unexplained Change in Mental Status Sepsis Action Taken by Nursing General: Well developed well nourished older female who appears in no acute distress, breathing comfortably on room air. Normal speech. She is not drooling or spitting up. HEENT: Normal cephalic atraumatic. Pupils are equal round and reactive to light. Extraocular movements are intact. Oropharynx is pink with moist mucous membranes. No swelling of the mouth lips or tongue. Neck: Supple with a midline trachea. No meningeal signs or stiffness, no JVD or bruits. No Stridor. Chest: Clear to auscultation bilaterally. No wheezes or rhonchi. No increased work of breathing. Heart: Regular rate and rhythm without murmurs or gallops. Abdomen: Soft nontender, nondistended without rebound guarding or rigidity. Extremities: No cyanosis clubbing or edema. No calf tenderness or assymetry Spine/Back. Non tender to palpation. No CVA tenderness Skin: Good turgor without rashes. Neurologic exam: Cranial nerves two through 12 are intact. Motor and sensation are intact and symmetrical throughout. Course Administered Medications Discontinued Medications Dextran/Dextrose (Dextran 10% / 500 Ml D5w) 500 ml IV NOW STA Stop: 05/20/22 20:58 Last Admin: 05/20/22 21:49 Dose: Not Given Documented By: RAUL Dextrose (Dextrose 50% 50 Ml Syringe) 25 ml IV NOW ONE Stop: 05/20/22 21:41 Last Admin: 05/20/22 21:48 Dose: 25 ml Documented By: RAUL Dextrose (Dextrose 50% 50 Ml Syringe) Confirm Administered Dose 50 ml IV .STK- MED ONE Stop: 05/20/22 21:43 Last Admin: 05/20/22 21:49 Dose: 50 ml Documented By: RAUL Sodium Chloride (Nss) 500 mls @ 999 mls/hr IV .Q31M STA Stop: 05/20/22 20:13 Last Infusion: 05/20/22 21:50 Dose: 0 mls/hr Documented By: Admin: 05/20/22 20:01 Dose: 999 mls/hr Documented By: RAUL Cefepime HCl (Maxipime) 2,000 mg in 20 mls @ 5 mls/min IV NOW STA; Protocol Stop: 05/20/22 21:02 Last Admin: 05/20/22 21:48 Dose: 5 mls/min Documented By: RAUL Sodium Chloride (Nss 1000ml) 1,000 mls @ 999 mls/hr IV .Q1H1M ONE Stop: 05/20/22 22:45 Last Admin: 05/20/22 23:06 Dose: 999 mls/hr Documented By: RAUL Nitroglycerin (Nitroglycerin Sl 0.4 Mg/Tab Tab) 0.4 mg SL NOW STA Stop: 05/20/22 19:44 Last Admin: 05/20/22 20:01 Dose: 0.4 mg Documented By: RAUL Ondansetron HCl (Ondansetron Inj 2 Mg/Ml 2 Ml Vial) 4 mg IV NOW STA Stop: 05/20/22 19:44 Last Admin: 05/20/22 20:01 Dose: 4 mg Documented By: RAUL Medical Decision Making Differential Diagnosis Acute coronary syndrome, esophageal foreign body/food impaction, electrolyte or metabolic abnormality, arrhythmia, infection Medical Records Attestation: I reviewed the patient's medical records. Home Medications Current Medication List: was personally reviewed by me Laboratory Data Attestation: I reviewed the patient's lab results. Result diagrams: 05/20/22 20:00 05/20/22 20:00 Lab Results 05/20/22 05/20/22 05/20/22 Range/Units 20:00 20:00 20:00 WBC 21.87 H (4.8-10.8) K/ul RBC 2.82 L (3.93-5.22) M/uL Hgb 8.4 L (12.0-16.0) g/dl Hct 25.4 L (34.1-44.9) % MCV 90.1 (80.0-100.0) fL MCH 29.8 (25.0-34.0) pg MCHC 33.1 (32.0-36.0) g/dL RDW Std Deviation 44.5 (36.4-46.3) fL RDW Coeff of [place] 13.6 (11.5-14.5) % Plt Count 365 (130-400) K/uL MPV 10.0 (9.4-12.3) fL Immature Gran % (Auto) 0.6 % Neut % (Auto) 84.2 % Lymph % (Auto) 6.7 % [place] % (Auto) 6.9 % Eos % (Auto) 1.3 % Baso % (Auto) 0.3 % Neut # (Auto) 18.42 H (1.4-6.5) K/uL Lymph # (Auto) 1.46 (1.2-3.4) K/uL [place] # (Auto) 1.50 H (0.24-0.82) K/uL Eos # (Auto) 0.29 (0-0.50) K/uL Baso # (Auto) 0.06 (0-0.2) K/uL Immature Gran # (Auto) 0.14 H (0.00-0.02) K/uL Absolute Nucleated RBC 0.02 H (0-0) K/uL Nucleated RBC % (auto) 0.1 % PT 11.7 (9.0-12.0) Seconds INR 1.1 (0.9-1.1) APTT 33.9 H (21.0-31.0) Seconds PTT Ratio 1.2 Sodium 133 L (136-145) mmol/L Potassium 3.7 (3.5-5.1) mmol/L Chloride 100 (98-107) mmol/L Carbon Dioxide 24 (21-32) mmol/L Anion Gap 9 (3-11) BUN 34 H (6-23) mg/dl Creatinine 1.22 H (0.6-1.2) mg/dl Est Cr Clr Drug Dosing Not Reportable Est GFR ( Amer) 49.5 ml/min Est GFR (Non-Af Amer) 42.7 ml/min BUN/Creatinine Ratio 27.9 H (10-20) Glucose 64 L (70-99(Fasting)) mg/dl Lactate (0.4-2.0) mmol/L Calcium 8.5 (8.5-10.1) mg/dl Total Bilirubin 1.1 H (0.2-1.0) mg/dl AST 30 (13-39) U/L ALT 25 (7-52) U/L Alkaline Phosphatase 85 (34-104) U/L Troponin I High Sens 15.2 H (0-14) pg/ml Total Protein 6.3 (6.0-8.3) gm/dl Albumin 3.0 L (3.4-5.0) gm/dl Globulin 3.3 (2.5-4.0) gm/dl Albumin/Globulin Ratio 0.9 (0.9-2) Lipase 11 (11-82) U/L SARS-CoV-2, RNA, NAAT (NEGATIVE) Blood Type Antibody Screen 05/20/22 05/20/22 05/20/22 Range/Units 20:00 21:31 21:31 WBC (4.8-10.8) K/ul RBC (3.93-5.22) M/uL Hgb (12.0-16.0) g/dl Hct (34.1-44.9) % MCV (80.0-100.0) fL MCH (25.0-34.0) pg MCHC (32.0-36.0) g/dL RDW Std Deviation (36.4-46.3) fL RDW Coeff of [place] (11.5-14.5) % Plt Count (130-400) K/uL MPV (9.4-12.3) fL Immature Gran % (Auto) % Neut % (Auto) % Lymph % (Auto) % [place] % (Auto) % Eos % (Auto) % Baso % (Auto) % Neut # (Auto) (1.4-6.5) K/uL Lymph # (Auto) (1.2-3.4) K/uL [place] # (Auto) (0.24-0.82) K/uL Eos # (Auto) (0-0.50) K/uL Baso # (Auto) (0-0.2) K/uL Immature Gran # (Auto) (0.00-0.02) K/uL Absolute Nucleated RBC (0-0) K/uL Nucleated RBC % (auto) % PT (9.0-12.0) Seconds INR (0.9-1.1) APTT (21.0-31.0) Seconds PTT Ratio Sodium (136-145) mmol/L Potassium (3.5-5.1) mmol/L Chloride (98-107) mmol/L Carbon Dioxide (21-32) mmol/L Anion Gap (3-11) BUN (6-23) mg/dl Creatinine (0.6-1.2) mg/dl Est Cr Clr Drug Dosing Est GFR ( Amer) ml/min Est GFR (Non-Af Amer) ml/min BUN/Creatinine Ratio (10-20) Glucose (70-99(Fasting)) mg/dl Lactate (0.4-2.0) mmol/L Calcium (8.5-10.1) mg/dl Total Bilirubin (0.2-1.0) mg/dl AST (13-39) U/L ALT (7-52) U/L Alkaline Phosphatase (34-104) U/L Troponin I High Sens 16.5 H (0-14) pg/ml Total Protein (6.0-8.3) gm/dl Albumin (3.4-5.0) gm/dl Globulin (2.5-4.0) gm/dl Albumin/Globulin Ratio (0.9-2) Lipase (11-82) U/L SARS-CoV-2, RNA, NAAT NEGATIVE (NEGATIVE) Blood Type O Positive Antibody Screen NEGATIVE 05/20/22 Range/Units 21:31 WBC (4.8-10.8) K/ul RBC (3.93-5.22) M/uL Hgb (12.0-16.0) g/dl Hct (34.1-44.9) % MCV (80.0-100.0) fL MCH (25.0-34.0) pg MCHC (32.0-36.0) g/dL RDW Std Deviation (36.4-46.3) fL RDW Coeff of [place] (11.5-14.5) % Plt Count (130-400) K/uL MPV (9.4-12.3) fL Immature Gran % (Auto) % Neut % (Auto) % Lymph % (Auto) % [place] % (Auto) % Eos % (Auto) % Baso % (Auto) % Neut # (Auto) (1.4-6.5) K/uL Lymph # (Auto) (1.2-3.4) K/uL [place] # (Auto) (0.24-0.82) K/uL Eos # (Auto) (0-0.50) K/uL Baso # (Auto) (0-0.2) K/uL Immature Gran # (Auto) (0.00-0.02) K/uL Absolute Nucleated RBC (0-0) K/uL Nucleated RBC % (auto) % PT (9.0-12.0) Seconds INR (0.9-1.1) APTT (21.0-31.0) Seconds PTT Ratio Sodium (136-145) mmol/L Potassium (3.5-5.1) mmol/L Chloride (98-107) mmol/L Carbon Dioxide (21-32) mmol/L Anion Gap (3-11) BUN (6-23) mg/dl Creatinine (0.6-1.2) mg/dl Est Cr Clr Drug Dosing Est GFR ( Amer) ml/min Est GFR (Non-Af Amer) ml/min BUN/Creatinine Ratio (10-20) Glucose (70-99(Fasting)) mg/dl Lactate 0.7 (0.4-2.0) mmol/L Calcium (8.5-10.1) mg/dl Total Bilirubin (0.2-1.0) mg/dl AST (13-39) U/L ALT (7-52) U/L Alkaline Phosphatase (34-104) U/L Troponin I High Sens (0-14) pg/ml Total Protein (6.0-8.3) gm/dl Albumin (3.4-5.0) gm/dl Globulin (2.5-4.0) gm/dl Albumin/Globulin Ratio (0.9-2) Lipase (11-82) U/L SARS-CoV-2, RNA, NAAT (NEGATIVE) Blood Type Antibody Screen Imaging Data Attestation: I personally reviewed and interpreted this imaging study as follows: My Impression: Chest x-rayno acute infiltrate, failure, pneumothorax seen Radiologist's Impression: Chest X-Ray 05/20/22 19:43 SINGLE VIEW CHEST CLINICAL HISTORY: Atypical chest pain. FINDINGS: An AP, portable, upright chest radiograph is compared to study dated 05/08/2022. The patient is status post midline sternotomy. The heart is enlarged noting atherosclerotic calcification of the thoracic aorta. The pulmonary vasculature is noncongested. The lungs and pleural spaces are clear noting mild bibasilar atelectasis. No pneumothorax is seen. The skeletal structures are osteopenic. The bony thorax is grossly intact. IMPRESSION: Cardiomegaly with no active disease in the chest. ACT 112: Negative or not required by law. Electronically signed by: Roberto Orona M.D. 05/20/2022 8:22 PM Chest x-ray without contraststat radno acute abnormality lungs. Mild atelectasis in the right lower lobe. No pleural effusion. Severe coronary artery calcification status post CABG. Hiatal hernia. Food products within the hernia sac and thoracic esophagus. CT abdomen and pelvis without contraststat read. Short segment mucosal thickening within the sigmoid colon consistent with nonspecific colitis. No fluid collection or free air. ECG Data Attestation: I personally reviewed and interpreted this ECG as follows: Indication: + chest pain Rate (beats per minute): 56 Rhythm: + sinus bradycardia ECG Intervals/blocks: + Normal QRS, + Normal QT and + Normal [place] ECG [place]: + Normal ECG ST segments: + Normal ST segments ECG Findings: + Other (T Wave inversions laterally); no PACs or no PVCs Comparison ECG Date: from (05/08/21) Change: the following changes noted (T wave abnormalities are more pronounced anterior and laterally) MDM Narrative This Patient is a 77-year-old female comes with chest pain. This occurred while she was eating it certainly could be a food bolus as well. She does not appear to be drooling I had her try to drink some fluids and she said it made it feel like it was going to hurt and shortly after she did spit up some. She does have a cardiac history and her EKG is not normal either so that complicates the picture. She has received aspirin and 2 nitroglycerin prior her blood pressure is in the 100s systolic I did order a fluid bolus IV as well as additional nitroglycerin which would help from both cardiac and potentially GI etiologies. She was reassessed frequently. Cardiac biomarkers were obtained. Her initial cardiac biomarker was mildly elevated but the second 1 done 2 hours apart did not show any significant change. White count was surprisingly elevated and I did give her cefepime 2 g IV for broad-spectrum antibiotic coverage. There is no elevation of lactic acid. She received IV fluids as well as IV Zosyn Edvin as well. CAT scan of the abdomen and chest were done as well and there is some food seen within the esophagus but no other abnormality seen. She does have underlying cardiac disease but I think this most likely is a food bolus I discussed case with Dr. Sharath Damon he recommends that the medical team admit her over tonight keep her n.p.o. give her IV antibiotics IV fluids and he will see her in the morning as well. Consult Dr. Serna to see the patient for these measures Continous cardiac monitoring: Orders placed in EMR for continuous cardiac monitoring. Upon my interpretation the patient was noted to be in normal sinus rhythm with a rate of 60 Impression & Plan Chest pain, Food impaction of esophagus, Elevated troponin, Lab test negative for COVID-19 virus, Elevated WBC count Discharge Plan Visit Data Chief Complaint: Chest Pain Stated Complaint: CHEST PAIN ED Provider: Saud Dawson Discharge Problem: Chest pain, Food impaction of esophagus, Elevated troponin, Lab test negative for COVID-19 virus, Elevated WBC count Forms Stand Alone Forms: My [facility] Prescriptions Prescriptions: No Action enoxaparin [Lovenox] 40 mg/0.4 mL Syringe 40 mg SUBCUT DAILY sodium chloride 1 gram Tablet 1,000 mg PO BID oxycodone 5 mg Tablet 5 mg PO Q8H PRN (Reason: Pain) nitrofurantoin monohyd/m-cryst [Macrobid] 100 mg Capsule 100 mg PO Q12 Rx Instructions: must administer with a meal/food take for 5 days....stop date 05/25/22 lidocaine [Lidoderm] 5 % Adhesive Patch,Medicated 1 patch TOPICAL DAILY Rx Instructions: leave on most painful area for up to 12 hrs..apply to hip in morning and remove at night insulin glargine [Lantus U-100 Insulin] 100 unit/mL Solution 12 unit SUBCUT PM isosorbide mononitrate 60 mg tablet extended release 24 hr 60 mg PO QAM oxybutynin chloride 5 mg tablet 5 mg PO BID Toujeo Max U-300 SoloStar 300 unit/mL (3 mL) insulin pen 20 unit SUBCUT HS insulin lispro [Humalog KwikPen Insulin] 100 unit/mL insulin pen 0 unit SUBCUT WM Rx Instructions: sliding scale carvedilol 6.25 mg tablet 6.25 mg PO BIDM amlodipine 10 mg tablet 10 mg PO QAM irbesartan 300 mg tablet 300 mg PO QAM nitroglycerin 0.4 mg tablet, sublingual 0.4 mg sublingual .Q 5 MINUTES PRN (Reason: Chest Pain) sertraline 50 mg tablet 50 mg PO QAM Brilinta 90 mg tablet 90 mg PO BID atorvastatin 20 mg Tablet 20 mg PO HS aspirin 81 mg Tablet,Delayed Release (Dr/Ec) 81 mg PO QAM cholecalciferol (vitamin D3) [Vitamin D3] 25 mcg (1,000 unit) Tablet 25 mcg PO QAM polyethylene glycol 3350 [Miralax] 17 gram Powder In Packet 17 g PO DAILY PRN (Reason: constipation) Qty: 14 0RF cyanocobalamin (vitamin B-12) 500 mcg Tablet 500 mcg PO QAM 30 Days Qty: 30 0RF ergocalciferol (vitamin D2) 1,250 mcg (50,000 unit) Capsule 50,000 unit PO Q7D Qty: 4 0RF Rx Instructions: mondays Referrals Referrals: Don Alaniz M.D. [Primary Care Provider] -
[2022-05-20 20:15] LABS: Basophils # (auto) 0.06 K/uL (0-0.2); Basophils % (auto) 0.3 %; Eosinophils # (auto) 0.29 K/uL (0-0.50); Eosinophils % (auto) 1.3 %; Hematocrit (blood only) 25.4 % (34.1-44.9); Hemoglobin 8.4 g/dl (12.0-16.0); Immature Granulocytes # (auto) 0.14 K/uL (0.00-0.02); Immature Granulocytes % (auto) 0.6 %; Lymphocytes # (auto) 1.46 K/uL (1.2-3.4); Lymphocytes % (auto) 6.7 %; Mean Corpuscular Hemoglobin 29.8 pg (25.0-34.0); Mean Corpuscular Hgb Conc 33.1 g/dL (32.0-36.0); Mean Corpuscular Volume 90.1 fL (80.0-100.0); Monocytes % (auto) 6.9 %; Neutrophils # (auto) 18.42 K/uL (1.4-6.5); Neutrophils % (auto) 84.2 %; Nucleated RBC # (auto) 0.02 K/uL (0-0); Nucleated RBC % (auto) 0.1 %; Platelet Count 365 K/uL (130-400); RDW Coefficient of Variation 13.6 % (11.5-14.5); RDW Standard Deviation 44.5 fL (36.4-46.3); Red Blood Count 2.82 M/uL (3.93-5.22); White Blood Count 21.87 K/ul (4.8-10.8)
--- NOTE | 2022-05-20 20:23 | XRay Report ---
SINGLE VIEW CHEST CLINICAL HISTORY: Atypical chest pain. FINDINGS: An AP, portable, upright chest radiograph is compared to study dated 05/08/2022. The patient is status post midline sternotomy. The heart is enlarged noting atherosclerotic calcification of the thoracic aorta. The pulmonary vasculature is noncongested. The lungs and pleural spaces are clear not ing mild bibasilar atelectasis. No pneumothorax is seen. The skeletal structures are osteopenic. The bony thorax is grossly intact. IMPRESSION: Cardiomegaly with no active disease in the chest. ACT 112: Negative or not required by law. Electronically signed by: Roberto Orona M.D. 05/20/2022 8:22 PM
[2022-05-20 20:27] LABS: INR 1.1 (0.9-1.1); Partial Thromboplastin Ratio 1.2; Partial Thromboplastin Time 33.9 Seconds (21.0-31.0); Prothrombin Time 11.7 Seconds (9.0-12.0)
[2022-05-20 20:54] LABS: Troponin I High Sensitivity 15.2 pg/ml (0-14)
[2022-05-20 20:55] LABS: Alanine Aminotransferase 25 U/L (7-52); Albumin Globulin Ratio 0.9 (0.9-2); Alkaline Phosphatase 85 U/L (34-104); Anion Gap 9 (3-11); Aspartate Aminotransferase 30 U/L (13-39); BUN Creatinine Ratio 27.9 (10-20); Bilirubin,Total 1.1 mg/dl (0.2-1.0); Blood Urea Nitrogen 34 mg/dl (6-23); Calcium 8.5 mg/dl (8.5-10.1); Carbon Dioxide 24 mmol/L (21-32); Chloride 100 mmol/L (98-107); Est GFR (African American) 49.5 ml/min; Est GFR (Non-African American) 42.7 ml/min; Globulin 3.3 gm/dl (2.5-4.0); Glucose 64 mg/dl (70-99(Fasting)); Lipase 11 U/L (11-82); Potassium 3.7 mmol/L (3.5-5.1); Sodium 133 mmol/L (136-145); Total Protein 6.3 gm/dl (6.0-8.3)
[2022-05-20] MEDS ORDERED: DEXTRAN IV STA (20:57)
[2022-05-20] MEDS ORDERED: D5W IV STA (20:57)
[2022-05-20] MEDS ORDERED: CEFEPIME 2,000 MG/20 ML VIAL IV STA (20:59)
[2022-05-20] MEDS ORDERED: DEXTROSE 50% 50 ML SYRINGE IV ONE ×2 (21:40→21:42)
[2022-05-20] MEDS ORDERED: SODIUM CHLORIDE 0.9% 1000ML 1,000 ML IV ONE (21:45)
--- NOTE | 2022-05-21 03:16 | History & Physical Report ---
Date of Service May 21, 2022 Assessment & Plan (1) Chest pain: Plan: Likely related to food impaction of esophagus. Although troponin was mildly elevated, when trended there was no significant rise. EKG is without evidence of ischemia and clinically she does not appear to be in ACS. Would proceed with removal of food impaction per GI and reassessed for her discomfort and symptoms. (2) Food impaction of esophagus: Plan: Plan as above, n.p.o. for possible EGD this AM. (3) Leukocytosis: Plan: Possibly an inflammatory response, cover with antibiotics empirically in case of infection as patient does report she has been feeling off for the past couple of weeks. (4) CAD (coronary artery disease), [place] coronary artery: Plan: Chronic, stable, continue current medical management. (5) DMII (diabetes mellitus, type 2): Plan: Chronic, controlled with A1c 7.1. Continue basal bolus insulin during this hospital stay. (6) Depression: Plan: Chronic, stable, continue sertraline 50 mg p.o. a.m. per home regimen. (7) H/O TIA (transient ischemic attack) and stroke: Plan: History of TIA currently on aspirin and Brilinta, her outpatient physician has given her Xarelto as a replacement for Brilinta however she has not started this yet. Continue Brilinta for now. (8) Post-operative state: Plan: recent left hip fracture. [place] are still in place and she remains on daily DVT prophylaxis with Lovenox. Return to SNF when able. PT/OT ordered. (9) DVT prophylaxis: Plan: Lovenox Full code Dispo-to telemetry vs EGD this am per GI DO Dunia Chavez Hospitalist History of Present Illness Chief Complaint: chest pain Primary Care Provider: Don Alaniz 77 yo F with chest pain after eating. Currently admitted to [facility] after a left hip fracture. Chest pain felt like burning and lasted about 1 hour. Did therapy all day and then later was eating dinner (hamburger) and felt like food got stuck in her epigastric area. Ate some raspberries and felt like things were not going down the way they should. Sat on edge of bed and stopped eating. She also had no appetite. Sips of water did not help and still felt that something was stuck. Laid down and felt nauseous. +nausea. Started getting a pain in her chest again. Brought up some clear mucus. (She notes a cough for 2 days). After reporting diaphoresis she was given nitro x 2. She has a h/o CABG and a stent. Nitro didn't help much. In the ER, couldn't swallow water. Workup reveals a leukocytosis to 22K, anemia (8.4/25), Na 133, BUN 34, creat 1.22 and a glucose of 64. HS trop was 15.2 and repeat 2 hours later was not significantly changed at 16.5. CXR revealed no active disease in the chest. EKG revealed sinus bradycardia with lateral TWI. CT scan revealed some food in the esophagus without other abnormalities. Allergies Allergy/AdvReac Type Severity Reaction Status Date / Time pollen extracts Allergy Mild Sneezing Verified 05/21/22 00:14 Home Medications Medication Instructions Recorded Confirmed Type amlodipine 10 mg tablet 10 mg PO QA 05/08/22 05/20/22 History aspirin 81 mg tablet,delayed 81 mg PO [facility] 05/08/22 05/20/22 History release atorvastatin 20 mg tablet 20 mg PO HS 05/08/22 05/20/22 History carvedilol 6.25 mg tablet 6.25 mg PO BIDM 05/08/22 05/20/22 History cholecalciferol (vitamin D3) 25 25 mcg PO QAM 05/08/22 05/20/22 History mcg (1,000 unit) tablet (Vitamin D3) insulin glargine U-300 conc 300 20 unit subcut 05/08/22 05/21/22 History unit/mL (3 mL) subcutaneous pen (Toujeo Max U-300 SoloStar) insulin lispro 100 unit/mL 0 unit subcut 05/08/22 05/21/22 History subcutaneous pen (Humalog KwikPen (U-100) Insulin) irbesartan 300 mg tablet 300 mg PO QAM 05/08/22 05/20/22 History isosorbide mononitrate 60 mg 60 mg PO QAM 05/08/22 05/20/22 History tablet,extended release 24 hr nitroglycerin 0.4 mg sublingual 0.4 mg sublingual .Q 5 MINUTES PRN 05/08/22 05/20/22 History tablet Chest Pain oxybutynin chloride 5 mg tablet 5 mg PO BID 05/08/22 05/20/22 History sertraline 50 mg tablet 50 mg PO QAM 05/08/22 05/20/22 History ticagrelor 90 mg tablet (Brilinta) 90 mg PO BID 05/08/22 05/21/22 History cyanocobalamin (vitamin B-12) 500 500 mcg PO QAM 30 days #30 tabs 05/12/22 05/20/22 Rx mcg tablet ergocalciferol (vitamin D2) 1,250 50,000 unit PO Q7D #4 caps 05/12/22 05/20/22 Rx mcg (50,000 unit) capsule polyethylene glycol 3350 17 gram 17 g PO DAILY PRN constipation #14 05/12/22 05/20/22 Rx oral powder packet (Miralax) ea enoxaparin 40 mg/0.4 mL 40 mg subcut DAILY 05/20/22 05/20/22 History subcutaneous syringe (Lovenox) sodium chloride 1 gram tablet 1,000 mg PO BID 05/20/22 05/21/22 History insulin glargine 100 unit/mL 12 unit subcut PM 05/21/22 05/21/22 History subcutaneous solution (Lantus U-100 Insulin) lidocaine 5 % topical patch 1 patch topical DAILY 05/21/22 05/21/22 History (Lidoderm) nitrofurantoin 100 mg PO Q12 05/21/22 05/21/22 History monohydrate/macrocrystals 100 mg capsule (Macrobid) oxycodone 5 mg tablet 5 mg PO Q8H PRN Pain 05/21/22 05/21/22 History Past Med/Surg History Medical History (Updated 05/21/22 @ 09:55 by Pepper Serna DO) Anemia CAD (coronary artery disease), [place] coronary artery Depression DMII (diabetes mellitus, type 2) H/O TIA (transient ischemic attack) and stroke Traumatic fracture of left hip with routine healing Surgical History (Updated 05/21/22 @ 10:01 by Pepper Serna DO) S/P CABG (coronary artery bypass graft) Status post hip surgery Family History Mother Liver cancer Father Myocardial infarction Social History Smoking Status: Former smoker Second Hand Exposure: No; Do You Dip or Chew Tobacco: No; Tobacco Cessation Education Requested by Patient: No Hx Alcohol Use: Yes Alcohol type: wine Hx Substance Use: No Communication Ability: Effective Beliefs That Will Affect Care: None Current Living Situation: Rehab Other Information That Helps Us Care for You: No Feels Safe at Home: Yes Safety Concerns: Feels Safe At This Time Assistive Devices: Glasses Review of Systems Review of Systems: All systems were reviewed and negative except as indicated above. Physical Exam Physical Exam: CONSTITUTIONAL: obese, vitals as above, generally well- appearing,NAD EYES: normal conjunctivae, no scleral icterus ENT: external ear and nose normal, MMM NECK: trachea midline RESPIRATORY: clear to auscultation bilaterally, no crackles, rales or wheezes, normal respiratory effort CARDIOVASCULAR: regular rate and rhythm, S1 and 2 heard without murmurs, gallops or rubs, no JVD, no peripheral edema CHEST: inspection of chest was normal GASTROINTESTINAL: soft, nontender, ND, no guarding MUSCULOSKELETAL: strength 5/5 throughout, head is normocephalic and atraumatic, normal palpation of chest wall without tenderness SKIN: warm and dry NEUROLOGIC: CN 2-12 grossly intact, no sensory deficit, normal cognition, normal speech, no tremor PSYCHIATRIC: alert cooperative and oriented to person, place and time. Euthymic mood, makes good eye contact, language grossly intact, recent and remote memory grossly intact. Results & Data Results & Data ([facility]) Vital Signs (Past 12 Hours) Vital Signs Temp Pulse Resp BP Pulse Ox O2 Del Method 05/21/22 03:00 81 18 94/66 L 96 05/21/22 02:30 84 20 123/83 96 05/21/22 02:00 82 22 114/87 96 05/21/22 02:00 114/87 05/21/22 01:31 110/71 05/21/22 01:31 85 18 100 05/21/22 01:30 82 18 85 L 05/21/22 01:01 73 21 97 05/21/22 01:00 78 22 97 05/21/22 00:30 93 H 20 99/80 L 98 05/21/22 00:00 79 20 120/69 95 05/20/22 23:30 80 16 98 05/20/22 23:30 140/64 05/20/22 23:11 123/64 05/20/22 23:11 72 20 94 05/20/22 23:10 94 H 10 L 05/20/22 22:00 70 20 05/20/22 22:00 135/65 05/20/22 21:30 54 L 20 96 05/20/22 21:30 140/53 L 05/20/22 21:00 57 L 23 97 05/20/22 21:00 122/66 05/20/22 20:31 120/60 05/20/22 20:31 58 L 20 97 05/20/22 20:30 61 14 97 05/20/22 20:00 57 L 21 96 05/20/22 19:55 122/49 L 05/20/22 19:55 58 L 20 95 05/20/22 19:54 59 L 24 94 05/20/22 19:26 36.6 C 58 L 18 122/49 L 95 Room Air 05/20/22 19:43 55 L 92 Room Air Laboratory Results Short CBC 05/20/22 Range/Units 20:00 WBC 21.87 H (4.8-10.8) K/ul Hgb 8.4 L (12.0-16.0) g/dl Hct 25.4 L (34.1-44.9) % Plt Count 365 (130-400) K/uL BMP 05/20/22 20:00 Sodium 133 L Potassium 3.7 Chloride 100 Carbon Dioxide 24 BUN 34 H Creatinine 1.22 H Glucose 64 L Calcium 8.5 Liver Function 05/20/22 Range/Units 20:00 Total Bilirubin 1.1 H (0.2-1.0) mg/dl AST 30 (13-39) U/L ALT 25 (7-52) U/L Alkaline Phosphatase 85 (34-104) U/L Albumin 3.0 L (3.4-5.0) gm/dl Diagnostic Findings Chest X-Ray 05/20/22 19:43 SINGLE VIEW CHEST CLINICAL HISTORY: Atypical chest pain. FINDINGS: An AP, portable, upright chest radiograph is compared to study dated 05/08/2022. The patient is status post midline sternotomy. The heart is enlarged noting atherosclerotic calcification of the thoracic aorta. The pulmonary vasculature is noncongested. The lungs and pleural spaces are clear noting mild bibasilar atelectasis. No pneumothorax is seen. The skeletal structures are osteopenic. The bony thorax is grossly intact. IMPRESSION: Cardiomegaly with no active disease in the chest. ACT 112: Negative or not required by law. Electronically signed by: Roberto Orona M.D. 05/20/2022 8:22 PM (1) Food impaction of esophagus Encounter type: initial encounter Qualified Code(s): T18.128A - Food in esophagus causing other injury, initial encounter (2) Chest pain Chest pain type: precordial pain Qualified Code(s): R07.2 - Precordial pain
[2022-05-21] MEDS ORDERED: CARBOHYDRATES FOR HYPOGLYCEMIA PO PRN (03:38)
[2022-05-21] MEDS ORDERED: GLUCOSE 10 TAB/TUBE PO PRN (03:38)
[2022-05-21] MEDS ORDERED: GLUCAGON FOR INJ 1 MG VIAL SQ PRN (03:38)
[2022-05-21] MEDS ORDERED: ACETAMINOPHEN 1,000 MG/100 ML VIAL IV PRN (03:38)
[2022-05-21] MEDS ORDERED: DEXTROSE 50% 50 ML SYRINGE IV PRN (03:38)
[2022-05-21] MEDS ORDERED: GLUCOSE 40% GEL 15 GM TUBE PO PRN (03:38)
[2022-05-21] MEDS ORDERED: SODIUM CHLORIDE 0.9% 1000ML 1,000 ML IV SCH (03:38)
[2022-05-21 06:14] LABS: Anion Gap 9 (3-11); BUN Creatinine Ratio 31.6 (10-20); Blood Urea Nitrogen 30 mg/dl (6-23); Carbon Dioxide 22 mmol/L (21-32); Chloride 101 mmol/L (98-107); Est GFR (Non-African American) 57.8 ml/min; Glucose 185 mg/dl (70-99(Fasting)); Potassium 4.2 mmol/L (3.5-5.1); Sodium 132 mmol/L (136-145)
[2022-05-21] MEDS ORDERED: fentaNYL citrate 100 MCG/2 ML VIAL ONE (06:50)
[2022-05-21 06:52] LABS: Estimated Average Glucose 157 mg/dl; Hemoglobin A1C 7.1 % (4.5-5.6)
[2022-05-21 07:02] LABS: Hematocrit (blood only) 25.2 % (34.1-44.9); Hemoglobin 8.3 g/dl (12.0-16.0); Mean Corpuscular Hemoglobin 29.6 pg (25.0-34.0); Mean Corpuscular Hgb Conc 32.9 g/dL (32.0-36.0); Mean Platelet Volume 10.5 fL (9.4-12.3); Nucleated RBC # (auto) 0.02 K/uL (0-0); Nucleated RBC % (auto) 0.1 %; Platelet Count 355 K/uL (130-400); RDW Coefficient of Variation 13.6 % (11.5-14.5); White Blood Count 19.36 K/ul (4.8-10.8)
--- NOTE | 2022-05-21 07:16 | Gastrointestinal Consultation ---
Date of Consultation May 21, 2022 Assessment & Plan (1) Food impaction of esophagus: Patient presented with chest discomfort found to have evidence of food within the esophagus on CT scan. Upper endoscopy has been requested for management of this. We have discussed the risks and benefits to include bleeding, infection, perforation, pain aspiration and need for follow-up studies. History of Present Illness Reason for Consultation: Suspected food bolus Attending Physician: Jameson Mcnamara MD History of Present Illness The patient is a 77-year-old female who presented to the emergency room last evening for evaluation of chest discomfort. The patient did have a recent admission to [facility] after a hip fracture that was repaired at this particular hospital. She notes that the chest burning occurred about 1 hour after eating dinner which included hamburger. She seems feel that part of the food got stuck but she is tolerating secretions without any difficulty. Patient notes that she has nausea but has had no emesis in the emergency room. Her surgical history is notable for the prior hip replacement in addition to a CABG and cardiac stent. She does not recall having a prior upper endoscopy nor prior food impactions. Allergies Allergy/AdvReac Type Severity Reaction Status Date / Time pollen extracts Allergy Mild Sneezing Verified 05/21/22 00:14 Home Medications Medication Instructions Recorded Confirmed Type amlodipine 10 mg tablet 10 mg PO QAM 05/08/22 05/20/22 History aspirin 81 mg tablet,delayed 81 mg PO QAM 05/08/22 05/20/22 History release atorvastatin 20 mg tablet 20 mg PO HS 05/08/22 05/20/22 History carvedilol 6.25 mg tablet 6.25 mg PO BIDM 05/08/22 05/20/22 History cholecalciferol (vitamin D3) 25 25 mcg PO QAM 05/08/22 05/20/22 History mcg (1,000 unit) tablet (Vitamin D3) insulin glargine U-300 conc 300 20 unit subcut HS 05/08/22 05/21/22 History unit/mL (3 mL) subcutaneous pen (Toujeo Max U-300 SoloStar) insulin lispro 100 unit/mL 0 unit subcut 05/08/22 05/21/22 History subcutaneous pen (Humalog KwikPen (U-100) Insulin) irbesartan 300 mg tablet 300 mg PO QAM 05/08/22 05/20/22 History isosorbide mononitrate 60 mg 60 mg PO QAM 05/08/22 05/20/22 History tablet,extended release 24 hr nitroglycerin 0.4 mg sublingual 0.4 mg sublingual .Q 5 MINUTES PRN 05/08/22 05/20/22 History tablet Chest Pain oxybutynin chloride 5 mg tablet 5 mg PO BID 05/08/22 05/20/22 History sertraline 50 mg tablet 50 mg PO QAM 05/08/22 05/20/22 History ticagrelor 90 mg tablet (Brilinta) 90 mg PO BID 05/08/22 05/21/22 History cyanocobalamin (vitamin B-12) 500 500 mcg PO QAM 30 days #30 tabs 05/12/22 05/20/22 Rx mcg tablet ergocalciferol (vitamin D2) 1,250 50,000 unit PO Q7D #4 caps 05/12/22 05/20/22 Rx mcg (50,000 unit) capsule polyethylene glycol 3350 17 gram 17 g PO DAILY PRN constipation #14 05/12/22 05/20/22 Rx oral powder packet (Miralax) ea enoxaparin 40 mg/0.4 mL 40 mg subcut DAILY 05/20/22 05/20/22 History subcutaneous syringe (Lovenox) sodium chloride 1 gram tablet 1,000 mg PO BID 05/20/22 05/21/22 History insulin glargine 100 unit/mL 12 unit subcut PM 05/21/22 05/21/22 History subcutaneous solution (Lantus U-100 Insulin) lidocaine 5 % topical patch 1 patch topical DAILY 05/21/22 05/21/22 History (Lidoderm) nitrofurantoin 100 mg PO Q12 05/21/22 05/21/22 History monohydrate/macrocrystals 100 mg capsule (Macrobid) oxycodone 5 mg tablet 5 mg PO Q8H PRN Pain 05/21/22 05/21/22 History Patient History Family History (Updated 05/21/22 @ 06:37 by Pepper Serna DO) Mother Liver cancer Father Myocardial infarction Social History Smoking Status: Former smoker Second Hand Exposure: No; Do You Dip or Chew Tobacco: No; Tobacco Cessation Education Requested by Patient: No Hx Alcohol Use: Yes Alcohol type: wine Hx Substance Use: No Communication Ability: Effective Beliefs That Will Affect Care: None Current Living Situation: Rehab Other Information That Helps Us Care for You: No Feels Safe at Home: Yes Safety Concerns: Feels Safe At This Time Assistive Devices: Glasses Review of Systems Constitutional: no sweats and no malaise Eyes: no diplopia Ear, Nose, Mouth, Throat: no ear pain and no ear trauma Respiratory: no change in sputum and no hemoptysis Cardiovascular: + chest pain; no dyspnea at rest Gastrointestinal: + bloating, + heartburn and + nausea Genitourinary: no urinary frequency Musculoskeletal: no radicular pain Integumentary: no rash Neurologic: no confusion Endocrine: no polydipsia Hematologic / Lymphatic: no coagulopathy Physical Exam Constitutional: well developed and average body habitus Eyes: PERRL, conjunctivae normal, anicteric sclerae ENMT: external ear and nose normal, oropharynx normal Respiratory: Auscultation: no diminished lung sounds, no crackles and no rales Cardiovascular: Heart Sounds: + murmur Gastrointestinal (Abdomen): Percussion/Palpation: abdomen soft Skin: no jaundice Results & Data ([facility]) Vital Signs (Past 12 Hours) Vital Signs Temp Pulse Pulse Resp BP BP Pulse Ox 05/21/22 05:00 87 20 115/71 98 05/21/22 04:00 74 23 121/60 97 05/21/22 03:30 72 25 H 103/70 97 05/21/22 03:00 81 18 94/66 L 96 05/21/22 02:30 84 20 123/83 96 05/21/22 02:00 82 22 114/87 96 05/21/22 02:00 114/87 05/21/22 01:31 110/71 05/21/22 01:31 85 18 100 05/21/22 01:30 82 18 85 L 05/21/22 01:01 73 21 97 05/21/22 01:00 78 22 97 05/21/22 00:30 93 H 20 99/80 L 98 05/21/22 00:00 79 20 120/69 95 05/20/22 23:30 80 16 98 05/20/22 23:30 140/64 05/20/22 23:11 123/64 05/20/22 23:11 72 20 94 05/20/22 23:10 94 H 10 L 05/20/22 22:00 70 20 05/20/22 22:00 135/65 05/20/22 21:30 54 L 20 96 05/20/22 21:30 140/53 L 05/20/22 21:00 57 L 23 97 05/20/22 21:00 122/66 05/20/22 20:31 120/60 05/20/22 20:31 58 L 20 97 05/20/22 20:30 61 14 97 05/20/22 20:00 57 L 21 96 05/20/22 19:55 122/49 L 05/20/22 19:55 58 L 20 95 05/20/22 19:54 59 L 24 94 05/20/22 19:26 36.6 C 58 L 18 122/49 L 95 05/20/22 19:43 55 L 92 O2 Del Method 05/21/22 05:00 Room Air 05/21/22 04:00 05/21/22 03:30 05/21/22 03:00 05/21/22 02:30 05/21/22 02:00 05/21/22 02:00 05/21/22 01:31 05/21/22 01:31 05/21/22 01:30 05/21/22 01:01 05/21/22 01:00 05/21/22 00:30 05/21/22 00:00 05/20/22 23:30 05/20/22 23:30 05/20/22 23:11 05/20/22 23:11 05/20/22 23:10 05/20/22 22:00 05/20/22 22:00 05/20/22 21:30 05/20/22 21:30 05/20/22 21:00 05/20/22 21:00 05/20/22 20:31 05/20/22 20:31 05/20/22 20:30 05/20/22 20:00 05/20/22 19:55 05/20/22 19:55 05/20/22 19:54 05/20/22 19:26 Room Air 05/20/22 19:43 Room Air Laboratory Results Laboratory Results - last 24 hr 05/20/22 05/20/22 05/20/22 20:00 20:00 20:00 WBC 21.87 H RBC 2.82 L Hgb 8.4 L Hct 25.4 L MCV 90.1 MCH 29.8 MCHC 33.1 RDW Std Deviation 44.5 RDW Coeff of [place] 13.6 Plt Count 365 MPV 10.0 Immature Gran % (Auto) 0.6 Neut % (Auto) 84.2 Lymph % (Auto) 6.7 [place] % (Auto) 6.9 Eos % (Auto) 1.3 Baso % (Auto) 0.3 Neut # (Auto) 18.42 H Lymph # (Auto) 1.46 [place] # (Auto) 1.50 H Eos # (Auto) 0.29 Baso # (Auto) 0.06 Immature Gran # (Auto) 0.14 H Absolute Nucleated RBC 0.02 H Nucleated RBC % (auto) 0.1 PT 11.7 INR 1.1 APTT 33.9 H PTT Ratio 1.2 Sodium 133 L Potassium 3.7 Chloride 100 Carbon Dioxide 24 Anion Gap 9 BUN 34 H Creatinine 1.22 H Est Cr Clr Drug Dosing Not Reportable Est GFR ( Amer) 49.5 Est GFR (Non-Af Amer) 42.7 BUN/Creatinine Ratio 27.9 H Glucose 64 L Estimat Average Glucose Hemoglobin A1c Lactate Calcium 8.5 Total Bilirubin 1.1 H AST 30 ALT 25 Alkaline Phosphatase 85 Troponin I High Sens 15.2 H Total Protein 6.3 Albumin 3.0 L Globulin 3.3 Albumin/Globulin Ratio 0.9 Lipase 11 SARS-CoV-2, RNA, NAAT Blood Type Antibody Screen 05/20/22 05/20/22 05/20/22 20:00 21:31 21:31 WBC RBC Hgb Hct MCV MCH MCHC RDW Std Deviation RDW Coeff of [place] Plt Count MPV Immature Gran % (Auto) Neut % (Auto) Lymph % (Auto) [place] % (Auto) Eos % (Auto) Baso % (Auto) Neut # (Auto) Lymph # (Auto) [place] # (Auto) Eos # (Auto) Baso # (Auto) Immature Gran # (Auto) Absolute Nucleated RBC Nucleated RBC % (auto) PT INR APTT PTT Ratio Sodium Potassium Chloride Carbon Dioxide Anion Gap BUN Creatinine Est Cr Clr Drug Dosing Est GFR ( Amer) Est GFR (Non-Af Amer) BUN/Creatinine Ratio Glucose Estimat Average Glucose Hemoglobin A1c Lactate Calcium Total Bilirubin AST ALT Alkaline Phosphatase Troponin I High Sens 16.5 H Total Protein Albumin Globulin Albumin/Globulin Ratio Lipase SARS-CoV-2, RNA, NAAT NEGATIVE Blood Type O Positive Antibody Screen NEGATIVE 05/20/22 05/21/22 05/21/22 21:31 05:31 05:31 WBC 19.36 H RBC 2.80 L Hgb 8.3 L Hct 25.2 L MCV 90.0 MCH 29.6 MCHC 32.9 RDW Std Deviation 45.0 RDW Coeff of [place] 13.6 Plt Count 355 MPV 10.5 Immature Gran % (Auto) Neut % (Auto) Lymph % (Auto) [place] % (Auto) Eos % (Auto) Baso % (Auto) Neut # (Auto) Lymph # (Auto) [place] # (Auto) Eos # (Auto) Baso # (Auto) Immature Gran # (Auto) Absolute Nucleated RBC 0.02 H Nucleated RBC % (auto) 0.1 PT INR APTT PTT Ratio Sodium 132 L Potassium 4.2 Chloride 101 Carbon Dioxide 22 Anion Gap 9 BUN 30 H Creatinine 0.95 Est Cr Clr Drug Dosing Not Reportable Est GFR ( Amer) 67.0 Est GFR (Non-Af Amer) 57.8 BUN/Creatinine Ratio 31.6 H Glucose 185 H Estimat Average Glucose Hemoglobin A1c Lactate 0.7 Calcium 8.0 L Total Bilirubin AST ALT Alkaline Phosphatase Troponin I High Sens Total Protein Albumin Globulin Albumin/Globulin Ratio Lipase SARS-CoV-2, RNA, NAAT Blood Type Antibody Screen 05/21/22 05:31 WBC RBC Hgb Hct MCV MCH MCHC RDW Std Deviation RDW Coeff of [place] Plt Count MPV Immature Gran % (Auto) Neut % (Auto) Lymph % (Auto) [place] % (Auto) Eos % (Auto) Baso % (Auto) Neut # (Auto) Lymph # (Auto) [place] # (Auto) Eos # (Auto) Baso # (Auto) Immature Gran # (Auto) Absolute Nucleated RBC Nucleated RBC % (auto) PT INR APTT PTT Ratio Sodium Potassium Chloride Carbon Dioxide Anion Gap BUN Creatinine Est Cr Clr Drug Dosing Est GFR ( Amer) Est GFR (Non-Af Amer) BUN/Creatinine Ratio Glucose Estimat Average Glucose 157 Hemoglobin A1c 7.1 H Lactate Calcium Total Bilirubin AST ALT Alkaline Phosphatase Troponin I High Sens Total Protein Albumin Globulin Albumin/Globulin Ratio Lipase SARS-CoV-2, RNA, NAAT Blood Type Antibody Screen Diagnostic Findings Read of the patient's CT is not available but per report there appears to be food within the patient's esophagus.
[2022-05-21] MEDS ORDERED: INSULIN ASPART PER UNIT SC SCH (07:30)
--- NOTE | 2022-05-21 07:57 | Anesthesiology Consultation ---
Date of Service May 21, 2022 Assessment & Plan Chart Review Chart Review: Acceptable Risk for Surgery and Patient NOT seen in Pre Admission Testing Consults Requested none ASA ASA4 Proposed Anesthesia Anesthesia Type: General Risk / Benefits Reviewed With: PT / POA / Parent / Guardian, Accepts Plan and Informed Consent Obtained Additional Comments: covid test neg. History Surgery Operation Date: 05/21/22 07:00 Proposed Procedures p Esophagogastroduodenoscopy - Sundar Damon DO Height/Weight Height: 5 ft Weight: 84.4 kg Allergies Allergy/AdvReac Type Severity Reaction Status Date / Time pollen extracts Allergy Mild Sneezing Verified 05/21/22 00:14 Medications Home Medications Medication Instructions Recorded Confirmed Last Taken amlodipine 10 mg tablet 10 mg PO QAM 05/08/22 05/20/22 05/08/22 aspirin 81 mg tablet,delayed 81 mg PO QAM 05/08/22 05/20/22 05/08/22 release atorvastatin 20 mg tablet 20 mg PO HS 05/08/22 05/20/22 05/07/22 carvedilol 6.25 mg tablet 6.25 mg PO BIDM 05/08/22 05/20/22 05/08/22 am cholecalciferol (vitamin D3) 25 25 mcg PO QAM 05/08/22 05/20/22 05/08/22 mcg (1,000 unit) tablet (Vitamin D3) insulin glargine U-300 conc 300 20 unit subcut 05/08/22 05/21/22 05/07/22 unit/mL (3 mL) subcutaneous pen (Toujeo Max U-300 SoloStar) insulin lispro 100 unit/mL 0 unit subcut 05/08/22 05/21/22 05/08/22 subcutaneous pen (Humalog KwikPen (U-100) Insulin) irbesartan 300 mg tablet 300 mg PO QAM 05/08/22 05/20/22 05/08/22 isosorbide mononitrate 60 mg 60 mg PO QAM 05/08/22 05/20/22 05/08/22 tablet,extended release 24 hr nitroglycerin 0.4 mg sublingual 0.4 mg sublingual .Q 5 MINUTES PRN 05/08/22 0 05/20/22 Unknown tablet Chest Pain oxybutynin chloride 5 mg tablet 5 mg PO BID 05/08/22 05/20/22 05/08/22 am sertraline 50 mg tablet 50 mg PO QAM 05/08/22 05/20/22 05/08/22 ticagrelor 90 mg tablet (Brilinta) 90 mg PO BID 05/08/22 05/21/22 05/08/22 am cyanocobalamin (vitamin B-12) 500 500 mcg PO QAM 30 days #30 tabs 05/12/22 05/20/22 Unknown mcg tablet ergocalciferol (vitamin D2) 1,250 50,000 unit PO Q7D #4 caps 05/12/22 05/20/22 Unknown mcg (50,000 unit) capsule polyethylene glycol 3350 17 gram 17 g PO DAILY PRN constipation #14 05/12/22 05/20/22 Unknown oral powder packet (Miralax) ea enoxaparin 40 mg/0.4 mL 40 mg subcut DAILY 05/20/22 05/20/22 Unknown subcutaneous syringe (Lovenox) sodium chloride 1 gram tablet 1,000 mg PO BID 05/20/22 05/21/22 Unknown insulin glargine 100 unit/mL 12 unit subcut PM 05/21/22 05/21/22 Unknown subcutaneous solution (Lantus U-100 Insulin) lidocaine 5 % topical patch 1 patch topical DAILY 05/21/22 05/21/22 Unknown (Lidoderm) nitrofurantoin 100 mg PO Q12 05/21/22 05/21/22 Unknown monohydrate/macrocrystals 100 mg capsule (Macrobid) oxycodone 5 mg tablet 5 mg PO Q8H PRN Pain 05/21/22 05/21/22 Unknown Active Medications Generic Name Dose Route Start Last Admin Trade Name Freq PRN Reason Stop Dose Admin Sodium Chloride 1,000 mls @ 100 mls/hr 05/21/22 03:38 05/21/22 05:31 Nss 1000ml IV 05/21/22 23:37 100 mls/hr .Q10H FREDDIE Administration NPO Date Last Intake of Fluids: 05/20/22 Time Last Intake of Fluids: 18:00 Date Last Intake of Solids: 05/20/22 Time Last Intake of Solids: 18:00 Exercise / Class Metabolic Activity IV < 2 Limit ADL/Bedbound Past Family History Family History Mother Liver cancer Father Myocardial infarction Past Anesthesia History No Hx of Anesthesia Complications and No Family Hx of Anesthesia Complications History of PONV No Hx of PONV and No Hx of Motion Sickness Social History Smoking Status: Former smoker Do You Dip or Chew Tobacco: No Hx Alcohol Use: Yes Alcohol type: wine alcohol intake frequency: holidays/special occasions only Hx Substance Use: No Physical Exam Vital Signs Last Vital Signs Temp 36.8 C 05/21/22 07:34 Pulse 93 H 05/21/22 07:34 Resp 20 05/21/22 07:34 BP 123/71 05/21/22 07:34 Pulse Ox 99 05/21/22 07:34 O2 Del Method 05/21/22 07:34 Constitutional + obese ENMT Mouth: + dentition abnormality, + dental bridge and + dentures Thyromental Distance: < 3.5 Finger Breadths Mallampati Class: II Neck normal visual inspection and trachea midline; neck extension not limited Respiratory normal respiratory effort Auscultation: + diminished lung sounds Cardiovascular Rate/Rhythm: regular rate and regular rhythm Heart Sounds: no murmur Vessels: no carotid bruit Musculoskeletal Spine: normal cervical ROM and no pain with cervical ROM Extremities: full ROM of extremities Neurologic moves all extremities Motor/Sensory: no sensory deficit Psychiatric Orientation: alert and oriented x 3 Testing Laboratory Results 05/21/22 05:31 05/21/22 05:31 PT 11.7 Seconds (9.0-12.0) 05/20/22 20:00 INR 1.1 (0.9-1.1) 05/20/22 20:00 APTT 33.9 Seconds (21.0-31.0) H 05/20/22 20:00 Hemoglobin A1c 7.1 % (4.5-5.6) H 05/21/22 05:31 Blood Type O Positive 05/20/22 21:31 Antibody Screen NEGATIVE 05/20/22 21:31 05/21/22 07:23 POC Glucose 171 H
--- NOTE | 2022-05-21 08:16 | Post Operative Brief Note ---
Immediate Post Op Note v1 Date of Surgery May 21, 2022 Pre & Post Diagnosis Operation Date: 05/21/22 07:00 Pre-Op Diagnosis: Esophagitis, Hiatal Hernia Post-Op Diagnosis: Esophagitis, Hiatal Hernia I identified the patient and participated in the time-out.: Yes Procedure Operation Date: 05/21/22 07:00 Actual Procedures p Esophagogastroduodenoscopy(Not Applicable) - Sundar Damon DO Surgeon Sundar Damon DO Mine Manager None Estimated Blood Loss 0 Findings Consistent with Post-Op Diagnosis
--- NOTE | 2022-05-21 08:17 | Communication Note ---
Date of Service: May 21, 2022 Patient underwent upper endoscopy today. She was found to have a small hiatal hernia, esophagitis and evidence of a recent food impaction. There was no food in the esophagus any longer. Recommendation EGD in 2 to 4 weeks for dilation Carafate slurry 4 times daily for 1 week Protonix 40 mg 1 time daily for 6 weeks then 20 mg daily thereafter Please call with any questions or concerns, GI to sign off
--- NOTE | 2022-05-21 08:23 | GI REPORT ---
Patient Name: Preeti Salas Procedure Date: 05/21/2022 7:32 AM Date of : 1945 Admit Type: Inpatient Age: 77 Gender: Female Attending MD: Sundar Damon DO Procedure: Upper GI endoscopy Providers: Sundar Damon DO Referring MD: Jameson Mcnamara Md Indications: Foreign body in the esophagus Medicines: General Anesthesia Complications: No immediate complications. Estimated blood loss: Minimal. Estimated Blood Loss: Estimated blood loss was minimal. Procedure: Pre-Anesthesia Assessment: - Prior to the procedure, a History and Physical was performed, and patient medications, allergies and sensitivities were reviewed. The patient's tolerance of previous anesthesia was reviewed. - The risks and benefits of the procedure and the sedation options and risks were discussed with the patient. All questions were answered and informed consent was obtained. - Patient identification and proposed procedure were verified prior to the procedure by the physician, the nurse and the stick puller. The procedure was verified in the procedure room. - Pre-procedure physical examination revealed no contraindications to sedation. - ASA Grade Assessment: III - A patient with severe systemic disease. - After reviewing the risks and benefits, the patient was deemed in satisfactory condition to undergo the procedure. - Immediately prior to administration of medications, the patient was re-assessed for adequacy to receive sedatives. - The heart rate, respiratory rate, oxygen saturations, blood pressure, adequacy of pulmonary ventilation, and response to care were monitored throughout the procedure. - The physical status of the patient was re-assessed after the procedure. - The anesthesia plan was to use general anesthesia. After obtaining informed consent, the endoscope was passed under direct vision. Throughout the procedure, the patient's blood pressure, pulse, and oxygen saturations were monitored continuously. The Endoscope was introduced through the mouth, and advanced to the second part of duodenum. The upper GI endoscopy was accomplished without difficulty. The upper GI endoscopy was accomplished without difficulty. The patient tolerated the procedure well. Findings: The upper third of the esophagus and middle third of the esophagus were normal. LA Grade C (one or more mucosal breaks continuous between tops of 2 or more mucosal folds, less than 75% circumference) esophagitis with no bleeding was found in the lower third of the esophagus. A small hiatal hernia was found. The proximal extent of the gastric folds (end of tubular esophagus) was 35 cm from the incisors. The hiatal narrowing was 37 cm from the incisors. The Z-line was 35 cm from the incisors. The gastric fundus, gastric body, incisura and gastric antrum were normal. One non-obstructing non-bleeding superficial duodenal ulcer with no stigmata of bleeding was found in the duodenal bulb. The lesion was 5 mm in largest dimension. The second portion of the duodenum was normal. Impression: - Normal upper third of esophagus and middle third of esophagus. - LA Grade C esophagitis. - Small hiatal hernia. - Normal gastric fundus, gastric body, incisura and antrum. - Non-obstructing non-bleeding duodenal ulcer with no stigmata of bleeding. NSAID induced etiology. - Normal second portion of the duodenum. - No specimens collected. Recommendation: - Full liquid diet for 3 days then advance to a mechanical soft diet. - Use sucralfate suspension 1 gram PO QID for 1 week. - Use Protonix (pantoprazole) 40 mg PO daily for 6 weeks then reduce to 20 mg per day - Repeat EGD in 2 to 4 weeks for dilation. Sundar Damon D.O. Sundar Damon, 05/21/2022 8:22:31 AM This report has been signed electronically. Note Initiated On: 05/21/2022 7:32 AM Number of Addenda: 0 I attest to the content of the Intraoperative Record and orders documented therein, exceptions below {[id number]}
[2022-05-21] MEDS ORDERED: ESMOLOL HCL INJ 10 MG/ML 10ML VIAL IV ONE (08:30)
[2022-05-21] MEDS ORDERED: SUCCINYLCHOLINE CHLORIDE 20 MG/ML 10 ML VIAL IV ONE (08:30)
[2022-05-21] MEDS ORDERED: LIDOCAINE 2% MPF LOCAL 5 ML VIAL INFIL ONE (08:30)
[2022-05-21] MEDS ORDERED: PROPOFOL IV EMULSION 10 MG/ML 20 ML VIAL IV ONE (08:30)
[2022-05-21] MEDS ORDERED: ONDANSETRON INJ 2 MG/ML 2 ML VIAL ONE (08:30)
[2022-05-21] MEDS ORDERED: ONDANSETRON INJ 2 MG/ML 2 ML VIAL IV PRN (08:39)
[2022-05-21] MEDS ORDERED: LABETALOL HCL IV 5 MG/ML 20ML IV PRN (08:39)
[2022-05-21] MEDS ORDERED: ePHEDrine sulfate 50 MG/ML AMP IV PRN (08:39)
[2022-05-21] MEDS ORDERED: ATROPINE SULFATE 0.1 MG/ML 10ML SYR IV PRN (08:39)
[2022-05-21] MEDS ORDERED: PROMETHAZINE HCL 12.5 MG in SODIUM CHLORIDE 0.9% 50 ML IV PRN (08:39)
[2022-05-21] MEDS ORDERED: NALOXONE HCL 0.4 MG/1 ML VIAL/CARP IV PRN (08:39)
[2022-05-21] MEDS ORDERED: LANTUS PER UNIT CHARGE SQ SCH (09:00)
--- NOTE | 2022-05-21 09:00 | CT Scan Report ---
CT chest diagnostic wo con, CT abd pelvis wo con CT DOSE: 715.26 mGy.cm HISTORY: Mid chest pain. Possible food stuck in throat. Generalized abdominal pain., elevated wbc, ev al for esop perf TECHNIQUE: Multiaxial CT images of the chest, abdomen, and pelvis were performed without contrast. A dose lowering technique was utilized adhering to the principles of ALARA. COMPARISON: None. FINDINGS: Chest CT: The central airways are patent. No pneumothorax. No pleural effusions. Bibasilar linear den sities consistent with subsegmental atelectasis. No focal lung consolidations. Mild interstitial thic kening and a few faint tree-in-bud nodular densities within the lungs most pronounced within the uppe r lobes. This favors chronic interstitial change/infectious bronchiolitis. No evidence for pulmonary edema. There are poststernotomy changes. No fractures within the visualized osseous structures. Moder ate calcified plaque within the normal caliber thoracic aorta. No mediastinal or hilar lymphadenopath y. The heart is normal in size. No pericardial effusion. Distended distal esophagus containing a foca l area of food debris measuring approximately 5 cm. Proximal to this the esophagus is mildly dilated and also filled with food debris. Therefore, this raises the possibility of an impacted food bolus of the distal esophagus. Endoscopy recommended for further evaluation. No evidence for esophageal perfo ration. No pneumomediastinum or fluid collections identified. Abdomen/pelvis CT: No pneumoperitoneum. No pneumatosis. Internal fixation of a subacute proximal left femoral fracture is again noted. The fracture fragments demonstrate mild healing. No suspicious lyti c or blastic osseous lesions. Degenerative changes noted within the lumbar spine. Small lower midline ventral hernia containing a few loops of small bowel. There is a femorofemoral bypass graft present. Suspect trace gas and fluid within the subcutaneous left lateral hip is likely due to the recent pos toperative change. Cholecystectomy. The unenhanced liver, spleen, adrenal glands, and pancreas are un remarkable. Mild intrahepatic bile duct dilatation is noted. This is likely due to the patient's post cholecystectomy state. No renal or ureteral stones. No hydronephrosis. Moderate calcified plaque with in the normal caliber abdominal aorta. No retroperitoneal lymphadenopathy. Small focus of gas within the bladder lumen is likely due to prior catheterization. Prior hysterectomy. Focal mild thickening a nd pericolonic fat stranding involving the mid sigmoid colon best seen on image 260. This may represe nt a mild diverticulitis or colitis. No perforation or abscess identified. There is moderate well-for med stool within the colon. No evidence for bowel obstruction. Normal appendix. IMPRESSION: 1. Distended distal esophagus containing a focal area of food debris measuring approximately 5 cm. Pr oximal to this the esophagus is mildly dilated and also filled with food debris. Therefore, this rais es the possibility of an impacted food bolus of the distal esophagus. Endoscopy recommended for furth er evaluation. No evidence for esophageal perforation. 2. Focal mild thickening and pericolonic fat stranding involving the mid sigmoid colon likely represe nting a mild acute diverticulitis or colitis. 3. Additional findings as described above. ACT 112: Negative or not required by law. Electronically signed by: Joseph Eagle M.D. 05/21/2022 8:58 AM
--- NOTE | 2022-05-21 09:09 | Anesthesiology Progress Note ---
Date of Service May 21, 2022 Anesthesia Post Procedure Vital Signs Vital Signs: Temp Pulse Pulse Pulse Resp BP BP 05/21/22 09:00 86 16 99/62 L 05/21/22 08:50 85 16 109/56 L 05/21/22 08:40 83 18 96/76 L 05/21/22 08:30 83 20 90/72 L 05/21/22 08:24 36.7 C 87 16 105/57 L 05/21/22 07:34 36.8 C 93 H 20 123/71 05/21/22 05:00 87 20 115/71 05/21/22 04:00 74 23 121/60 05/21/22 03:30 72 25 H 103/70 05/21/22 03:00 81 18 94/66 L 05/21/22 02:30 84 20 123/83 05/21/22 02:00 82 22 114/87 05/21/22 02:00 114/87 05/21/22 01:31 110/71 05/21/22 01:31 85 18 05/21/22 01:30 82 18 05/21/22 01:01 73 21 05/21/22 01:00 78 22 05/21/22 00:30 93 H 20 99/80 L 05/21/22 00:00 79 20 120/69 05/20/22 23:30 80 16 05/20/22 23:30 140/64 05/20/22 23:11 123/64 05/20/22 23:11 72 20 05/20/22 23:10 94 H 10 L 05/20/22 22:00 70 20 05/20/22 22:00 135/65 05/20/22 21:30 54 L 20 05/20/22 21:30 140/53 L 05/20/22 21:00 57 L 23 05/20/22 21:00 122/66 05/20/22 20:31 120/60 05/20/22 20:31 58 L 20 05/20/22 20:30 61 14 05/20/22 20:00 57 L 21 05/20/22 19:55 122/49 L 05/20/22 19:55 58 L 20 05/20/22 19:54 59 L 24 05/20/22 19:26 36.6 C 58 L 18 122/49 L 05/20/22 19:43 55 L Pulse Ox O2 Del Method O2 Flow Rate 05/21/22 09:00 100 Room Air 05/21/22 08:50 100 Oxymask 3 05/21/22 08:40 100 Oxymask 3 05/21/22 08:30 100 Oxymask 6 05/21/22 08:24 100 Oxymask 6 05/21/22 07:34 99 Room Air 05/21/22 05:00 98 Room Air 05/21/22 04:00 97 05/21/22 03:30 97 05/21/22 03:00 96 05/21/22 02:30 96 05/21/22 02:00 96 05/21/22 02:00 05/21/22 01:31 05/21/22 01:31 100 05/21/22 01:30 85 L 05/21/22 01:01 97 05/21/22 01:00 97 05/21/22 00:30 98 05/21/22 00:00 95 05/20/22 23:30 98 05/20/22 23:30 05/20/22 23:11 05/20/22 23:11 94 05/20/22 23:10 05/20/22 22:00 05/20/22 22:00 05/20/22 21:30 96 05/20/22 21:30 05/20/22 21:00 97 05/20/22 21:00 05/20/22 20:31 05/20/22 20:31 97 05/20/22 20:30 97 05/20/22 20:00 96 05/20/22 19:55 05/20/22 19:55 95 05/20/22 19:54 94 05/20/22 19:26 95 Room Air 05/20/22 19:43 92 Room Air Transfer of Care Handoff Completed per policy Notes Mental Status: alert / awake / arousable Patient Amnestic to Procedure: Yes Nausea / Vomiting: adequately controlled Pain: adequately controlled Airway Patency, RR, SpO2: stable & adequate BP & HR: stable & adequate Hydration State: stable & adequate Anesthetic Complications: no major complications apparent
[2022-05-21] MEDS ORDERED: oxyCODONE HCL IR 5 MG TAB (IMMEDIATE RELEASE) PO PRN (09:56)
[2022-05-21] MEDS ORDERED: SODIUM CHLORIDE 1 GM TABLET PO SCH (10:00)
[2022-05-21] MEDS ORDERED: TICAGRELOR 90 MG TAB PO SCH (10:00)
[2022-05-21] MEDS ORDERED: SERTRALINE HCL 50 MG TABLET PO SCH (10:00)
[2022-05-21] MEDS ORDERED: CHOLECALCIFEROL 1,000 UNITS 25 MCG TAB PO SCH (10:00)
[2022-05-21] MEDS ORDERED: carvediloL 6.25 MG TAB PO SCH (10:00)
[2022-05-21] MEDS ORDERED: ASPIRIN 81 MG ECTAB PO SCH (10:00)
[2022-05-21] MEDS ORDERED: ENOXAPARIN INJ 40 MG/0.4 ML SYR SQ SCH (10:00)
[2022-05-21] MEDS ORDERED: LIDOCAINE 5% 1 PATCH TD SCH (10:00)
[2022-05-21] MEDS ORDERED: CYANOCOBALAMIN (B-12) 500 MCG TABLET PO SCH (10:00)
[2022-05-21] MEDS ORDERED: CEFEPIME 2,000 MG in SYRINGE 0 ML IV SCH (11:00)
--- NOTE | 2022-05-21 11:01 | Discharge Summary ---
Date of Service May 21, 2022 Admission HPI Per Admitting Provider 77 yo F with chest pain after eating. Currently admitted to [facility] after a left hip fracture. Chest pain felt like burning and lasted about 1 hour. Did therapy all day and then later was eating dinner (hamburger) and felt like food got stuck in her epigastric area. Ate some raspberries and felt like things were not going down the way they should. Sat on edge of bed and stopped eating. She also had no appetite. Sips of water did not help and still felt that something was stuck. Laid down and felt nauseous. +nausea. Started getting a pain in her chest again. Brought up some clear mucus. (She notes a cough for 2 days). After reporting diaphoresis she was given nitro x 2. She has a h/o CABG and a stent. Nitro didn't help much. In the ER, couldn't swallow water. Workup reveals a leukocytosis to 22K, anemia (8.4/25), Na 133, BUN 34, creat 1.22 and a glucose of 64. HS trop was 15.2 and repeat 2 hours later was not significantly changed at 16.5. CXR revealed no active disease in the chest. EKG revealed sinus bradycardia with lateral TWI. CT scan revealed some food in the esophagus without other abnormalities. Principal Diagnosis food impaction in esophagus, leukocytosis Discharge Exam Gen: WD/WN, NAD, lying in bed, A&Ox3 HEENT: Normocephalic, atraumatic, conjunctivae moist, sclerae anicteric, mucous membranes moist Lung: Clear to Auscultation bilaterally, no wheezes/rales/rhonchi Heart: Regular rate, regular rhythm, no murmurs, rubs, or gallops Abdomen: Soft, Non-tender, ND +BS x 4 Extremities: no edema Skin: Warm, no rash Discharge Data Allergies Allergy/AdvReac Type Severity Reaction Status Date / Time pollen extracts Allergy Mild Sneezing Verified 05/21/22 00:14 Consultations 05/20/22 23:53 ED Decision to Admit Stat 05/21/22 03:38 Consult Gastroenterology Routine Procedures Performed Operation Date: 05/21/22 07:00 Actual Procedures p Esophagogastroduodenoscopy(Not Applicable) - Sundar Damon, DO Ordered Studies 05/20/22 20:54 CT abd pelvis wo con Urgent CT chest diagnostic wo con Urgent Hospital Course (1) Chest pain: (2) Food impaction of esophagus: (3) Leukocytosis: (4) Diverticulitis: (5) CAD (coronary artery disease), [place] coronary artery: (6) DMII (diabetes mellitus, type 2): (7) Depression: (8) H/O TIA (transient ischemic attack) and stroke: (9) Post-operative state: Plan This is a77 yo F with chest pain after eating. Currently admitted to [facility] after a left hip fracture. Chest pain felt like burning and lasted about 1 hour. Did therapy all day and then later was eating dinner (hamburger) and felt like food got stuck in her epigastric area.Underwent EGD this morning and was found to have a small hiatal hernia, esophagitis and evidence of a recent food impaction. There was no food in the esophagus any longer. GI recommends full liquid diet for 3 days and then transition to mechanical soft diet until repeat EGD. Repeat EGD for dilation recommended in 2-4 weeks for dilation. Carafate slurry x 1 week and Protonix 40mg started per GI recommendations. Leukocytosis of 22 on admission with downtrend to 19 today. Likely an element of stress response given recent fracture and food impaction but CT abd/pelvis with findings in mid sigmoid colon likely representing a mild acute diverticulitis or colitis. Asymptomatic but will discharge on PO course of Cipro/Flagyl based on lab and imaging findings. Follow up with CBC in 1 week at rehab facility. Imaging also showing ventral hernia, not incarcerated or painful on exam. Consider follow up with general surgery if becomes painful. Patient pain free, afebrile and hemodynamically stable at time of discharge back to [facility]. Total Time Total Time Spent Total Time Spent (In Minutes): 45 Discharge Plan Discharge Items Patient Disposition: Transfer Inpatient Rehab Fac Reason For Visit: CHEST PAIN, FOOD BOLUS Discharge Diagnosis: food impaction of esophagus Activity: Resume your previous activity Non-emergency contact: Primary Care Provider Call non-emergency contact if: you have any medication questions, your symptoms worsen, your pain is not controlled and you have a fever Follow-up/Referrals: Don Alaniz M.D. [Primary Care Provider] - Diet: Full liquid Addtl Attending Provider Instructions: You were admitted for food impaction that is no longer present. Continue full liquid diet for 3 days and then transition to mechanical soft diet until repeat EGD. MEDICATION CHANGES: * Carafate slurry 4 times daily x 1 week * Protonix 40 mg daily for 6 weeks then decrease to 20 mg daily thereafter SUMMARY OF TEST RESULTS: Upper endoscopy performed on 05/21/22: She was found to have a small hiatal hernia, esophagitis and evidence of a recent food impaction. There was no food in the esophagus any longer. RECOMMENDATIONS FOR FOLLOW-UP: Please follow up with GI service for EGD in 2-4 weeks for dilation. Elevated WBC count is downtrending but still elevated. CT abd/pelvis with the mid sigmoid colon likely representing a mild acute diverticulitis or colitis. Imaging also showing ventral hernia, not incarcerated or painful on exam. Consider follow up with general surgery if becomes painful. Complete course of Cipro/Flagyl for mild, asymptomatic diverticulitis. Repeat CBC in one week. OTHER INSTRUCTIONS: Seek medical attention if you have: * temperature above 101 * chest pain or trouble breathing * abdominal pain, nausea, vomiting * diarrhea, dark stools or bloody stools * any unanswered questions or concerns Call 911 if symptoms are severe. Please take good care of yourself. Call if you have any questions or problems. You can reach a [facility] hospitalist on duty at [facility] 24 hours a day by calling [phone]. Rebeca Early PA-C [facility] Hospitalist Pending Studies at Discharge: No Stand-Alone Forms: My [facility] Skilled Items Patient informed of condition?: Yes DNR: No Discharge Level of Care: Acute rehab Communicable Disease: No Discharge Prognosis: Stable Lines: None Urinary Catheter: No Medications and DC Order Prescriptions: New sucralfate [Carafate] 100 mg/mL suspension 5 ml PO QID Qty: 414 0RF Rx Instructions: swish in mouth and spit out; use after food and/or drink 4 times a day x 1 week. ciprofloxacin HCl [Cipro] 500 mg tablet 500 mg PO BID Qty: 20 0RF Rx Instructions: Take twice daily x 10 days. metronidazole 500 mg tablet 500 mg PO TID Qty: 30 0RF Rx Instructions: Take 3 times daily for 10 days. pantoprazole [Protonix] 40 mg tablet,delayed release (DR/EC) 40 mg PO DAILY Qty: 30 0RF Rx Instructions: Take 1 40mg tab daily x 6 weeks, then decrease to 20mg daily. Continued enoxaparin [Lovenox] 40 mg/0.4 mL Syringe 40 mg SUBCUT DAILY sodium chloride 1 gram Tablet 1,000 mg PO BID oxycodone 5 mg Tablet 5 mg PO Q8H PRN (Reason: Pain) lidocaine [Lidoderm] 5 % Adhesive Patch,Medicated 1 patch TOPICAL DAILY Rx Instructions: leave on most painful area for up to 12 hrs..apply to hip in morning and remove at night insulin glargine [Lantus U-100 Insulin] 100 unit/mL Solution 12 unit SUBCUT PM isosorbide mononitrate 60 mg tablet extended release 24 hr 60 mg PO QAM oxybutynin chloride 5 mg tablet 5 mg PO BID Toujeo Max U-300 SoloStar 300 unit/mL (3 mL) insulin pen 20 unit SUBCUT HS insulin lispro [Humalog KwikPen Insulin] 100 unit/mL insulin pen 0 unit SUBCUT WM Rx Instructions: sliding scale carvedilol 6.25 mg tablet 6.25 mg PO BIDM amlodipine 10 mg tablet 10 mg PO QAM irbesartan 300 mg tablet 300 mg PO QAM nitroglycerin 0.4 mg tablet, sublingual 0.4 mg sublingual .Q 5 MINUTES PRN (Reason: Chest Pain) sertraline 50 mg tablet 50 mg PO QAM Brilinta 90 mg tablet 90 mg PO BID atorvastatin 20 mg Tablet 20 mg PO HS aspirin 81 mg Tablet,Delayed Release (Dr/Ec) 81 mg PO QAM cholecalciferol (vitamin D3) [Vitamin D3] 25 mcg (1,000 unit) Tablet 25 mcg PO QAM polyethylene glycol 3350 [Miralax] 17 gram Powder In Packet 17 g PO DAILY PRN (Reason: constipation) Qty: 14 0RF cyanocobalamin (vitamin B-12) 500 mcg Tablet 500 mcg PO QAM 30 Days Qty: 30 0RF ergocalciferol (vitamin D2) 1,250 mcg (50,000 unit) Capsule 50,000 unit PO Q7D Qty: 4 0RF Rx Instructions: mondays Discontinued nitrofurantoin monohyd/m-cryst [Macrobid] 100 mg Capsule 100 mg PO Q12 Rx Instructions: must administer with a meal/food take for 5 days....stop date 05/25/22 Discharge Orders: Discharge Order (Routine); Ordered 05/21/22 Ordered By: Rebeca Wells/Other Patient Handouts: DVT Post Op Prevention Admission Data Admit Date/Time: 05/21/22 03:21 Attending Provider: Jameson Mcnamara Admit Provider: Pepper Serna Primary Care Provider: Don Alaniz Other Providers: Pepper Serna ; Sundar Damon Supervising Physician Co-Signing Physician Notes This is an attending cosign note for full reports and documentation please see full dictation by PAEli following is a synopsis. Patient presenting with dysphagia CAT scan demonstrating possible bolus stuck at the lower esophagus. Patient subsequently received an EGD at the time the bolus had passed. Otherwise currently patient feeling well denies significant chest pain shortness of breath abdominal pain denies any diarrhea. However CAT scan demonstrating possible colitis with elevated leukocytosis questionable stress response given patient's presentation as well as recent hip surgery otherwise imaging of the thorax abdomen pelvis is unremarkable for any other source for the leukocytosis. Head atraumatic chest lungs clear abdomen soft nontender mildly obese. No significant lower extremity edema. Barrios denies any significant dysuria also denies any fever chills cough phlegm. Feels well currently. We will have her obtain a UA and initiate patient on ciprofloxacin and Flagyl for discharge. Follow-up with gastroenterology for further evaluation of dysphagia. Recommend general surgery follow-up for ventral hernia. No further complaints for the patient. We will repeat labs in 1 week's time as well. Patient's findings can be followed up as an outpatient.
[2022-05-21] MEDS ORDERED: ATORVASTATIN 20 MG TAB PO SCH (21:00)
[2022-05-21] MEDS ORDERED: OXYBUTYNIN CHLORIDE 5 MG TAB PO SCH (21:00)
--- NOTE | 2022-05-21 21:52 | Electrocardiogram Report ---
Test Reason : Blood Pressure : / mmHG Vent. Rate : 056 BPM Atrial Rate : 056 BPM P-R Int : 150 ms QRS Dur : 088 ms QT Int : 460 ms P-R-T Axes : 045 021 138 degrees QTc Int : 443 ms Sinus bradycardia Possible Left atrial enlargement Septal infarct (cited on or before 20-MAY-2022) T wave abnormality, consider anterior ischemia Abnormal ECG When compared with ECG of 09-MAY-2022 17:44, T wave inversion more evident in Anterior leads Confirmed by Anirudh Nava ([id number]) on 05/21/2022 9:52:10 PM Referred By: REFERRED SELF Confirmed By:Anirudh Nava
[2022-05-22] MEDS ORDERED: ISOSORBIDE MONO EXTENDED REL 60 MG TABCR PO SCH (09:00)
[2022-05-22] MEDS ORDERED: IRBESARTAN 150 MG TAB PO SCH (09:00)
== END 2022-05-21 11:21 | DRG 395 ==
LOC: ED 19:28 → EDINP 05-21 03:21